=== PATIENT | male | born 1965 | race Caucasian/White ===

== ENCOUNTER → 2019-12-27 11:06 | Outpatient (CLI) | payer BC, SELFPAY | PROVIDERS: PCP Family Medicine; Referring Provider Family Medicine; Visit Provider Family Medicine | DX: R50.9 Fever, unspecified (principal) | CPT/HCPCS: 87635; G2023; U0003 ==

== ENCOUNTER → 2025-01-03 | Outpatient (CLI) | payer OTHER, SELFPAY ==
[2025-01-03 17:37] LABS: Absolute Lymphocyte Count 2.16 X10^3/uL (0.83-4.51); Absolute Neutrophil Count 1.9 X10^3/uL (2.0-7.7); Basophil# 0.02 X10^3/uL; Basophil% 0.5 % (0-1); Eosinophil# 0.03 X10^3/uL; Eosinophils% 0.7 % (0-5); Hematocrit 39.2 % (40-54); Hemoglobin 13.8 g/dL (13.0-16.5); Lymphocyte # 2.16 X10^3/ul (0.83-4.51); Lymphocyte % 48.6 % (19-41); Mean Corp Hgb Conc 35.2 g/dL (32-36); Mean Corpuscular Hgb 31.8 pg (27.0-32.0); Mean Corpuscular Volume 90.3 fL (80-94); Mean Platelet Vol. 10.6 fl (6.2-12.0); Monocyte# 0.38 X10^3/uL; Monocyte% 8.6 % (0-10); NRBC Flagged by Analyzer 0 % (0-5); Neutrophil # 1.85 X10^3/uL (2.7-7.7); Neutrophil % 41.6 % (47-70); Platelet Count 192 K/mm3 (150-450); RBC Distribution Width CV 11.9 % (11.6-14.6); RBC Distribution Width SD 39.1 fl (35.1-43.9); Red Blood Count 4.34 M/mm3 (4.6-6.2); White Blood Count 4.4 K/mm3 (4.4-11.0)
[2025-01-03 18:45] LABS: Hepatitis C Antibody Nonreactive (Nonreactive); Vitamin D,25 Hydroxy 33.5 ng/mL (30-100)
[2025-01-03 18:48] LABS: ALB/GLOB Ratio 1.8 RATIO (0.9-2.4); AST(SGOT) 31 U/L (<=37); Alanine Aminotransfer ALT/SGPT 28 U/L (<=46); Albumin, Serum 4.4 g/dL (3.5-5.0); Alkaline Phosphatase 68 U/L (40-129); Anion Gap 11 (5-15); BUN 15 mg/dL (4-19); Calcium,Total 9.5 mg/dL (7.6-11.0); Carbon Dioxide 26.3 mmol/L (21.0-32.0); Chloride 103 mmol/L (98-108); Creatinine, Serum 0.91 mg/dL (0.70-1.20); EST Glomerular Filtration Rate 97 (>60); Globulin 2.4 g/dL (2.2-4.2); Glucose 92 mg/dL (70-99); Potassium 3.9 mmol/L (3.3-5.1); Protein, Total 6.8 g/dL (5.9-8.4); Sodium Level 140 mmol/L (133-145); Total Bilirubin 0.65 mg/dL (0.00-1.30)
== END | disposition home or self-care (01) ==
PROVIDERS: PCP Family Medicine; Referring Provider Family Medicine Geriatric Medicine; Visit Provider Family Medicine Geriatric Medicine
DX: Z13.89 Encounter for screening for other disorder (principal); E78.5 Hyperlipidemia, unspecified; E55.9 Vitamin D deficiency, unspecified
CPT/HCPCS: 36415; 80053; 82306; 84443; 85025; 86803

== ENCOUNTER → 2025-03-30 | Outpatient (CLI) | payer OTHER, SELFPAY ==
--- NOTE | 2025-03-30 08:03 | EKG12_ITS ---
Test Reason : PREOP Blood Pressure : */* mmHG Vent. Rate : 47 BPM Atrial Rate : 47 BPM P-R Int : 198 ms QRS Dur : 96 ms QT Int : 428 ms P-R-T Axes : -11 -10 -8 degrees QTcB Int : 378 ms Marked sinus bradycardia Abnormal ECG No previous ECGs available Confirmed by ELVIA URBINA, ELMO ([id number]), clinical editor FAISAL HALL ([id number]) on 04/02/2025 8:40:26 AM Referred By: Zach Hoff Confirmed By: ELMO GAN MD
--- OUTSIDE RECORDS SUMMARY | 2025-03-30 08:11 | XMS RPT_ITS | CCD ---
Author Organization [facility] Care Team Providers Care Transit Planner Name Role Phone Dariel Nicholson Unavailable Unavailable Panzner, Pilo Megan Unavailable Unavailable Kromalic, Melquiades Unavailable Unavailable Kromalic, Melquiades Unavailable Unavailable Robby Lazaro Unavailable Unavailable Dariel Nicholson Unavailable Unavailable Alexander Reyes MD Unavailable Kromalic, Melquiades Unavailable Unavailable Kromalic, Melquiades C Unavailable Unavailable Iveth Pilo C Unavailable Unavailable Dariel Nicholson Unavailable Unavailable MiteshomalicMelquiades Primary Care Provider Kromalic DO, Melquiades Unavailable Unavailable Kromalic, Melquiades C Unavailable Unavailable Iveth Pilo C Unavailable Unavailable Robby Lazaro Unavailable Unavailable Dariel Nicholson Unavailable Unavailable Dariel Nicholson Unavailable Unavailable Kromalic DO, Melquiades Unavailable Unavailable Panzner, Pilo C Unavailable Unavailable Kromalic DO, Melquiades Unavailable Unavailable Kromalic, Melquiades C Unavailable Unavailable Unavailable Krcarline, Melquiades Primary Care Unavailable Alexander Gamboa Attending Unavailable Unavailable Primary Care Provider Unavailjb e Kromalic DO, Melquiades C Primary Care Provider KELLY OBRIEN Referring Unavailable KROMALIC, MELQUIADES C Primary Care Unavailable Kromalic DO, Melquiades C Primary Care Provider ALEXANDER GAMBOA Attending Unavailable KROMALIC, MELQUIADES C Primary Care Unavailable HUNTER PEOPLES Attending Unavailable KROMALIC, MELQUIADES C Primary Care Unavailable KROMALIC, MELQUIADES C Attending Unavailable KROMALIC, MELQUIADES C Primary Care Unavailable KROMALIC, MELQUIADES C Referring Unavailable Maynor Malone MD Unavailable Dr. Melquiades Jolley MD Primary Care Provider Steve URBINA, Dr. Antione Schultz Attending Provider Steve URBINA, Dr. Antione Schultz Referring Provider [phone] HUNTER BAIG Attending Unavailable KROMALIC, MELQUIADES Guzman Primary Care Unavailable KROMALIC, MELQUIADES Guzman Primary Care Unavailable KIRA, RAJU Attending Unavailable KROMALIC, MELQUIADES Guzman Primary Care Unavailable KIRA, DINESHU Attending Unavailable KROMALIC, MELQUIADES Guzman Primary Care Unavailable HUNTER BAIG Attending Unavailable KROMALIC, MELQUIADES Guzman Primary Care Unavailable KIRA, RAJU Admitting Unavailable KIRA, RAJU Attending Unavailable KROMALIC, MELQUIADES C Primary Care Unavailable KIRA, RAJU Referring Unavailable KROMALIC, MELQUIADES C Primary Care Unavailable KROMALIC, MELQUIADES C Referring Unavailable KROMALIC, MELQUIADES C Primary Care Unavailable KIRA, RAJU Referring Unavailable KROMALIC, MELQUIADES Guzman Primary Care Unavailable KROMALIC, MELQUIADES Guzman Primary Care Unavailable Kromaldesire, Melquiaeds Primary Care Unavailable Antione Wilson Chi Referring Unavailable Antione Wilson Chi Attending Unavailable Melquiades Jolley Primary Care Unavailable Dariel Hoff Attending Unavailabl e Medications Current Medications Medication Drug Class(es) Dates Sig (Normalized) Sig (Original) apixaban 5 mg oral tablet (8 sources) Factor Xa Inhibitor Start: 12-20-2024 take 1 tablet by mouth twice daily apixaban (Eliquis) 5 mg tablet Indications: Atrial fibrillation, unspecified type (Multi) Take 1 tablet (5 mg) by mouth 2 times a day. 60 tablet 11 12/20/2024 Active Start: 11-16-2024 take 1 tablet by debra th twice daily apixaban (Eliquis) 5 mg tablet Indications: Atrial fibrillation, unspecified type (Multi) Take 1 tablet (5 mg) by mouth 2 times a day. 60 tablet 11/16/2024 Active ascorbic acid 500 mg oral tablet (8 sources) Vitamin C take 1 tablet by mouth once daily ascorbic acid (Vitamin C) 500 mg tablet Take 1 tablet (500 mg) by mouth once daily. Active nirmatrelvir-ritonav ir (Paxlovid) 300 mg (150 mg x 2)-100 mg tablet therapy pack (1 source) Start: 07-06-20 End: 07-11-20 23 take 3 tablets by mouth twice daily nirmatrelvir-ritonavi r (Paxlovid) 300 mg (150 mg x 2)-100 mg tablet therapy pack Indications: COVID-19 Take 3 tablets by mouth 2 times a day for 5 days. 30 tablet 0 07/06/2023 07/11/2023 Active oseltamivir 75 mg oral capsule (1 source) Neuraminidase Inhibitor Start: 10-15-19 End: 10-20-19 take 1 capsule by mouth twice daily oseltamivir (Tamiflu) 75 mg capsule Indications: Body aches , Chills , Fatigue, unspecified type , Influenza A Take 1 capsule (75 mg) by mouth 2 times a day for 5 days. 10 capsule 10/14/2024 10/19/2024 Active rosuvastatin calcium 5 mg oral tablet (8 sources) HMG-CoA Reductase Inhibitor Start: 12-21-19 End: 12-21-19 take 1 tablet by mouth once daily rosuvastatin (Crestor) 5 mg tablet Indications: Hyperlipidemia, unspecified hyperlipidemia type Take 1 tablet (5 mg) by mouth once daily. 30 tablet 11 12/20/2024 12/20/2025 Active Start: 11-16-2024 End: 12-16-2024 take 1 tablet by mouth once daily rosuvastatin (Crestor) 5 mg tablet Indications: Hyperlipidemia, unspecified hyperlipidemia type Take 1 tablet (5 mg) by mouth once daily. 30 tablet 11/16/2024 12/16/2024 Active Completed/Discontinued Medications Medication Drug Class(es) Dates Sig (Normalized) Sig (Original) [id number] 60 actuat albuterol 0.09 mg/actuat metered dose inhaler (2 sources) beta2-Adrenergic Agonist Start: 12-30-2019 take 1-2 puff(s) by inhalation every four to six hours as needed Albuterol Sulfate HFA 108 (90 Base) MCG/ACT Inhalation Aerosol Solution INHALE 1 TO 2 PUFFS EVERY 4 TO 6 HOURS NEEDED. Quantity: 1 Refills: 0 Melquiades Jolley DO Start : 30-Dec-2019 Active 8.5 GM Inhaler amoxicillin 875 mg oral tablet (2 sources) Penicillin-class Antibacterial Start: 06-10-2019 take 1 tablet by mouth once daily Amoxicillin 875 MG Oral Tablet TAKE 1 TABLET EVERY 12 HOURS DAILY. Quantity: 14 Refills: 0 Dariel Nicholson DO Start : 10-Jun-2019 Active Start: 11-30-2018 End: 12-09-2018 take 1 tablet by mouth once daily Amoxicillin 875 MG Oral Tablet TAKE 1 TABLET EVERY 12 HOURS DAILY. Quantity: 16 Refills: 0 Dariel Nicholson DO Start : 30-Nov-2018 End : 08-Dec-2018 Active benzonatate 200 mg oral capsule (2 sources) Non-narcotic Antitussive Start: 12-28-2019 take 1 capsule by mouth three times daily as needed Benzonatate 200 MG Oral Capsule TAKE 1 CAPSULE 3 TIMES DAILY NEEDED. Quantity: 21 Refills: 0 Miteshcarline KRAFT Melquiades Start : 28-Dec-2019 Active doxycycline hyclate 100 mg oral capsule (1 source) Tetracycline-class Drug Start: 01-17-2019 take 1 capsule by mouth once daily Doxycycline Hyclate 100 MG Oral Capsule TAKE 1 CAPSULE EVERY 12 HOURS DAILY. Quantity: 14 Refills: 0 Dariel Nicholson DO Start : 17-Jan-2019 Active ergocalciferol, vitamin D2, (VITAMIN D2 ORAL) (7 sources) End: 01-18-2025 ergocalciferol, vitamin D2, (VITAMIN D2 ORAL) Take by mouth. 01/18/2025 Discontinued (Therapy completed) ergocalciferol, vitamin D2, (VITAMIN D2 ORAL) Take by mouth. Active iohexol (OMNIPaque) 350 mg iodine/mL solution 75 mL (1 source) Start: 08-02-2024 End: 08-02-2024 75 mL, intravenous, Once in imaging, Starting on Wed08/02/24 at 1217, For 1 dose, Outpatient - Future naproxen 500 mg oral tablet (5 sources) Nonsteroidal Anti-inflammatory Drug Start: 01-23-2019 take 1 tablet by mouth every twelve hours Naproxen 500 MG Oral Tablet TAKE 1 TABLET Every twelve hours PRN pain Quantity: 14 Refills: 0 Miteshfabianodesire DO Melquiades Start : 23-Jan-2019 Active No Reported Medications (2 sources) No Reported Medications Refills: 0 Active No Reported Medications (2 sources) No Reported Medications Refills: 0 DO Active No Reported Medi cations Refills: 0 Active Problems Active Problems Problem Classification Problem Date Documented Da te Episodic/Chronic Aortic; peripheral; and visceral artery aneurysms (9 sources) Aneurysm of ascending aorta; Translations: [Aneurysm of ascending aorta without rupture] Onset: 5 11-16-2024 Chronic Cancer of rectum and anus (20 sources) Malignant tumor of rectum; Translations: [Malignant neoplasm of rectum] Onset: 3 Chronic Cardiac dysrhythmias (20 sources) Atrial fibrillation; Translations: [Unspecified atrial fibrillation] Onset: 5 11-16-2024 Chronic Coronary atherosclerosis and other heart disease (13 sources) Coronary arteriosclerosis; Translations: [Atherosclerotic heart disease of [place] coronary artery without angina pectoris] Onset: 5 11-16-2024 Chronic Disorders of lipid metabolism (20 sources) Hyperlipidemia; Translations: [Hyperlipidemia, unspecified] Onset: 5 11-16-2024 Chronic Diverticulosis and diverticulitis (1 source) Diverticulosis of large intestine without perforation or abscess without bleeding; Translations: [Dvrtclos of lg int w/o perforation or abscess w/o bleeding] Onset: 3 Chronic Fever of unknown origin (7 sources) Fever; Translations: [Fever, unspecified] Episodic Immunizations and screening for infectious disease (6 sources) Vaccination needed; Translations: [Need for prophylactic vaccination and inoculation against unspecified single disease] Episodic Influenza (3 sources) Influenza due to Influenza A virus; Translations: [Influenza due to other identified influenza virus with other respiratory manifestations] Onset: 5 10-14-2024 Episodic Malaise and fatigue (3 sources) Fatigue; Translations: [Other fatigue] Onset: 5 10-14-2024 Episodic Nutritional deficiencies (2 sources) Vitamin D deficiency; Translations: [Vitamin D deficiency, unspecified] Onset: 5 01-15-2025 Chronic Other aftercare (1 source) Encounter for removal of sutures; Translations: [Visit for suture removal] Episodic Other aftercare (19 sources) Surgical follow-up; Translations: [Encounter for removal of sutures] Episodic Other connective tissue disease (20 sources) Metatarsalgia; Translations: [Enthesopathy of ankle and tarsus, unspecified] Episodic Other connective tissue disease (20 sources) Foot pain; Translations: [Pain in limb] Episodic Other connective tissue disease (19 sources) Pain in calf; Translations: [Pain in limb] Episodic Other gastrointestinal disorders (1 source) Other ascites; Translations: [Other ascites] Onset: 3 Episodic Other liver diseases (1 source) Fatty (change of) liver, not elsewhere classified; Translations: [Fatty (change of) liver, not elsewhere classified] Onset: 3 Chronic Other liver diseases (1 source) Liver disease, unspecified; Translations: [Liver disease, unspecified] Onset: 3 Chronic Other non-traumatic joint disorders (1 source) Toe joint unstable; Translations: [Other instability, right foot] Onset: 0 08-25-2019 Episodic Other nutritional; endocrine; and metabolic disorders (2 sources) Obesity; Translations: [Class 1 obesity with body mass index (BMI) of 33.0 to 33.9 in adult] Onset: 5 01-18-2025 Chronic Other screening for suspected conditions (not mental disorders or infectious disease) (20 sources) Electrocardiogram abnormal; Translations: [Nonspecific abnormal electrocardiogram [ECG] [EKG]] Onset: 3 Resolved: 5 07-06-2023 Episodic Other upper respiratory disease (20 sources) Hypertrophy of nasal turbinates; Translations: [Hypertrophy of nasal turbinates] Episodic Other upper respiratory infections (20 sources) Chronic pansinusitis; Translations: [Recurrent sinusitis] Onset: 3 Resolved: 3 07-06-2023 Chronic Residual codes; unclassified (1 source) Generalized aches and pains; Translations: [Pain, unspecified] 10-14-2024 Episodic Residual codes; unclassified (1 source) Chill; Translations: [Chills (without fever)] 10-14-2024 Episodic Residual codes; unclassified (2 sources) Pain, unspecified; Translations: [Pain, unspecified] Onset: 5 Episodic Residual codes; unclassified (2 sources) Chills (without fever); Translations: [Chills (without fever)] Onset: 5 Episodic Unclassified (1 source) Aneurysm of the ascending aorta, without rupture; Translations: [Aneurysm of the ascending aorta, without rupture] Onset: 5 Varicose veins of lower extremity (14 sources) Varicose veins of lower extremity; Translations: [Venous varices] Onset: 08-25-2019 Episodic Past or Other Problems Problem Classification Problem Date Documented Da te Episodic/Chronic Other connective tissue disease (19 sources) Other specified soft tissue disorders; Translations: [Swelling of right lower limb] Onset: 07-06-2023 Resolved: 07-06-2023 07-06-2023 Episodic Other connective tissue disease (14 sources) Metatarsalgia of right foot; Translations: [Metatarsalgia, right foot] Onset: 07-06-2023 Resolved: 07-06-2023 07-06-2023 Episodic Other connective tissue disease (14 sources) Pain of right calf; Translations: [Pain in right lower leg] Onset: 07-06-2023 Resolved: 07-06-2023 07-06-2023 Episodic Other connective tissue disease (12 sources) Swelling of lower limb; Translations: [Other specified soft tissue disorders] Onset: 07-06-2023 11-16-2024 Episodic Other connective tissue disease (13 sources) Swelling of right lower limb; Translations: [Right leg swelling] Other gastrointestinal disorders (2 sources) History of polyp of colon; Translations: [Personal history of other diseases of the digestive system] 08-10-2023 Episodic Other gastrointestinal disorders (2 sources) Personal history of other diseases of the digestive system; Translations: [Personal history of other diseases of the digestive system] Onset: 02-01-2024 Episodic Other injuries and conditions due to external causes (20 sources) Tick bite; Translations: [Insect bite, nonvenomous, of other, multiple, and unspecified sites, without mention of infection] Onset: 07-06-2023 Resolved: 07-06-2023 07-06-2023 Episodic Other lower respiratory disease (20 sources) Cough; Translations: [Cough] Onset: 07-06-2023 Resolved: 07-06-2023 07-06-2023 Episodic Other lower respiratory disease (10 sources) Snoring; Translations: [Snoring] Onset: 11-16-2024 11-16-2024 Episodic Other lower respiratory disease (1 source) Snoring; Translations: [Snoring] Onset: 11-16-2024 Episodic Other nutritional; endocrine; and metabolic disorders (20 sources) H/O: raised blood lipids; Translations: [Personal history of other endocrine, metabolic, and immunity disorders] Onset: 07-06-2023 Resolved: 07-06-2023 07-06-2023 Episodic Other skin disorders (20 sources) Epidermoid cyst; Translations: [Sebaceous cyst] Onset: 07-06-2023 Resolved: 11-16-2024 07-06-2023 Episodic Other upper respiratory disease (20 sources) Deviated nasal septum; Translations: [Deviated nasal septum] Onset: 07-06-2023 Resolved: 11-16-2024 07-06-2023 Episodic Other upper respiratory infections (20 sources) Acute sinusitis; Translations: [Acute upper respiratory infection] Onset: 07-06-2023 Resolved: 07-06-2023 07-06-2023 Episodic Otitis media and related conditions (20 sources) Dysfunction of eustachian tube; Translations: [Otitis media] Onset: 07-06-2023 Resolved: 11-16-2024 07-06-2023 Episodic Phlebitis; thrombophlebitis and thromboembolism (20 sources) Thrombosis of superficial vein of lower limb; Translations: [Phlebitis of superficial veins of lower extremity] Onset: 07-06-2023 Resolved: 07-06-2023 07-06-2023 Episodic Residual codes; unclassified (2 sources) Localized edema; Translations: [Localized edema] Onset: 11-30-2024 11-30-2024 Episodic Residual codes; unclassified (1 source) Localized edema; Translations: [Localized edema] Onset: 11-30-2024 Episodic Residual codes; unclassified (7 sources) Requires vaccination; Translations: [Need for vaccination] Skin and subcutaneous tissue infections (20 sources) Cellulitis of abdominal wall ; Translations: [Cellulitis and abscess of trunk] Onset: 07-06-2023 Resolved: 07-06-2023 07-06-2023 Episodic Unclassified (1 source) Problem Unclassified (8 sources) Patient encounter status; Translations: [Screening for colon cancer] 11-16-2024 Unclassified (14 sources) Onset: 07-06-2023 Resolved: 11-16-2024 07-06-2023 Unclassified (1 source) Aneurysm of the ascending aorta, without rupture; Translations: [Aneurysm of the ascending aorta, without rupture] Onset: 11-16-2024 Viral infection (20 sources) Viral disease; Translations: [Unspecified viral infection] Onset: 07-06-2023 Resolved: 11-16-2024 07-06-2023 Episodic NEGATED: Highlighted row has not occurred!Residual codes; unclassified (20 sources) Disease Episodic Results Test Name Value Interpretation Reference Range Facility CEAon 03-01-2025 CEA <2.0 Normal See Note: [facility] Comment on above: Result Comment: Refe rence Range: Non-Smoker: <2.5 Smoker: <5.0 This test was performed using the Siemens chemiluminescent method. Values obtained from different assay methods cannot be used interchangeably. CEA levels, regardless of value, should not be interpreted as absolute evidence of the presence or absence of disease. Performed By: #### [id number] #### [facility] [address], [address] [place] [address] Senior International Tax Manager: Mg Blake MD ECG 12-LEADon 01-08-2025 ECG 12-LEAD Ventricular Rate 47 Atrial Rate 47 P-R Interval 198 QRS Duration 88 Q-T Interval 410 QTC Calculation(Bazett) 362 P [place] 3 R [place] -2 T [place] 0 QRS Count 8 Q Onset 220 P Onset 121 P Offset 183 T Offset 425 QTC Fredericia 377 Diagnosis Sinus bradycardia Otherwise normal ECG When compared with ECG of 02-JAN-2025 12:07, (unconfirmed) No significant change was found Confirmed by Maynor Malone ([id number]) on 01/27/2025 9:38:04 PM Normal [facility] Absolute lymphocyte countOrd ered By: Antione Wilson on 01-03-2025 Lymphocytes Auto (Unsp spec) [#/Vol] 2.16 10*3/uL 0.83-4.51 [facility] Absolute neutrophil countOrd ered By: Antione Wilson on 01-03-2025 Neutrophils (Bld) [#/Vol] 1.9 10*3/uL Low 2.0-7.7 [facility] Anion gap in Serum or Plasma Ordered By: Antione Wilson on 01-03-2025 Anion gap [Moles/Vol] 11 mmol/L 5-15 [facility] Automated lymphocyte count a s percentage of total leukocytesOrdered By: Antione Wilson on 01-03-2025 Lymphocytes/100 WBC Auto (Unsp spec) 48.6 % High 19-41 [facility] BUN/creatinine ratioOrdered By: Antione Wilson on 01-03-2025 Urea nitrogen/Creatinine [Mass ratio] 16.0 mg/mg 10-20 [facility] Basophil percentageOrdered B y: Antione Wilson on 01-03-2025 Basophils/100 WBC (Bld) 0.5 % 0-1 [facility] Bilirubin, totalOrdered By: Antione Wilson on 01-03-2025 Bilirubin [Mass/Vol] 0.65 mg/dL 0.00-1.30 [facility] CBC W/Diff, Automatedon 12-24 Absolute Lymph 2.16 X10 3/uL Normal 0.83-4.51 [facility] Comment on above: Performed By: #### L 500.4050, L3890.6301, L506.1001, L501.9520, L100.0100 #### [facility] [address] [place], [address] Absolute Neut 1.9 X10 3/uL Low 2.0-7.7 [facility] Comment on above: Performed By: #### L 500.4050, [id number], L506.1001, L501.9520, L100.0100 #### [facility] [address] [place], [address] Basophils/100 WBC (Bld) 0.5 % Normal 0-1 [facility] Comment on above: Performed By: #### L 500.4050, [id number], L506.1001, L501.9520, L100.0100 #### [facility] [address] [place], [address] Eosinophils/100 WBC (Bld) 0.7 % Normal 0-5 [facility] Comment on above: Performed By: #### L 500.4050, [id number], L506.1001, L501.9520, L100.0100 #### [facility] [address] [place], [address] Erythrocyte distribution width (RBC) [Ratio] 11.9 % Normal 11.6-14.6 [facility] Comment on above: Performed By: #### L 500.4050, [id number], L506.1001, L501.9520, L100.0100 #### [facility] [address] [place], [address] Hematocrit (Bld) [Volume fraction] 39.2 % Low 40-54 [facility] Comment on above: Performed By: #### L 500.4050, [id number], L506.1001, L501.9520, L100.0100 #### [facility] [address] [place], [address] Hemoglobin (Bld) [Mass/Vol] 13.8 g/dL Normal 13.0-16.5 [facility] Comment on above: Performed By: #### L 500.4050, [id number], L506.1001, L501.9520, L100.0100 #### [facility] [address] [place], [address] IG% 0.000 Normal 0.0-0.9 [facility] Comment on above: Result Comment: IG% - Immature Granulocytes (promyelocytes, myelocytes and metamyelocytes) > 1% indicates that a LEFT SHIFT is Present. Performed By: #### L 500.4050, [id number], L506.1001, L501.9520, L100.0100 #### [facility] [address] [place], [address] Lymphocytes/100 WBC (Bld) 48.6 % High 19-41 [facility] Comment on above: Performed By: #### L 500.4050, [id number], L506.1001, L501.9520, L100.0100 #### [facility] [address] [place], [address] MCH (RBC) [Entitic mass] 31.8 pg Normal 27.0-32.0 [facility] Comment on above: Performed By: #### L 500.4050, [id number], L506.1001, L501.9520, L100.0100 #### [facility] [address] [place], [address] MCHC (RBC) [Mass/Vol] 35.2 g/dL Normal 32-36 [facility] Comment on above: Performed By: #### L 500.4050, [id number], L506.1001, L501.9520, L100.0100 #### [facility] [address] [place], [address] MCV (RBC) [Entitic vol] 90.3 fL Normal 80-94 [facility] Comment on above: Performed By: #### L 500.4050, [id number], L506.1001, L501.9520, L100.0100 #### [facility] [address] [place], [address] Monocytes/100 WBC (Bld) 8.6 % Normal 0-10 [facility] Comment on above: Performed By: #### L 500.4050, [id number], L506.1001, L501.9520, L100.0100 #### [facility] [address] [place], [address] Neutrophils/100 WBC (Bld) 41.6 % Low 47-70 [facility] Comment on above: Performed By: #### L 500.4050, [id number], L506.1001, L501.9520, L100.0100 #### [facility] [address] [place], [address] Nucleated RBC (Bld) [#/Vol] 0 10*3/uL Normal 0-5 [facility] Comment on above: Performed By: #### L 500.4050, [id number], L506.1001, L501.9520, L100.0100 #### [facility] [address] [place], [address] Platelet mean volume (Bld) [Entitic vol] 10.6 fL Normal 6.2-12.0 [facility] Comment on above: Performed By: #### L 500.4050, [id number], L506.1001, L501.9520, L100.0100 #### [facility] [address] [place], [address] Platelets (Bld) [#/Vol] 192 10*3/uL Normal 150-450 [facility] Comment on above: Performed By: #### L 500.4050, [id number], L506.1001, L501.9520, L100.0100 #### [facility] [address] [place], [address] RBC (Bld) [#/Vol] 4.34 10*6/uL Low 4.6-6.2 [facility] Comment on above: Performed By: #### L 500.4050, [id number], L506.1001, L501.9520, L100.0100 #### [facility] [address] [place], [address] RDW SD 39.1 fl Normal 35.1-43.9 [facility] Comment on above: Performed By: #### L 500.4050, [id number], L506.1001, L501.9520, L100.0100 #### [facility] [address] [place], [address] WBC (Bld) [#/Vol] 4.4 10*3/uL Normal 4.4-11.0 [facility] Comment on above: Performed By: #### L 500.4050, [id number], L506.1001, L501.9520, L100.0100 #### [facility] [address] [place], [address] Carbon dioxide, total [Moles /volume] in Central venous bloodOrdered By: Antione Wilson on 01-03-2025 CO2 [Moles/Vol] 26.3 mmol/L 21.0-32.0 [facility] Chloride assayOrdered By: Felipe Wilson on 01-03-2025 Chloride [Moles/Vol] 103 mmol/L 98-108 [facility] Comprehensive Metabolic Prof ilon 01-03-2025 Albumin [Mass/Vol] 4.4 g/dL Normal 3.5-5.0 [facility] Comment on above: Performed By: #### L 500.4050, L3890.6301, L506.1001, L501.9520, L100.0100 #### [facility] [address] [place], [address] Albumin/Globulin [Mass ratio] 1.8 {ratio} Normal 0.9-2.4 [facility] Comment on above: Performed By: #### L 500.4050, L3890.6301, L506.1001, L501.9520, L100.0100 #### [facility] [address] [place], [address] ALK PHOS 68 U/L Normal 40-129 [facility] Comment on above: Performed By: #### L 500.4050, L3890.6301, L506.1001, L501.9520, L100.0100 #### [facility] [address] [place], [address] ALT [Catalytic activity/Vol] 28 U/L Normal <=46 [facility] Comment on above: Performed By: #### L 500.4050, L3890.6301, L506.1001, L501.9520, L100.0100 #### [facility] [address] [place], [address] AST [Catalytic activity/Vol] 31 U/L Normal <=37 [facility] Comment on above: Result Comment: Hemo lysis present, Results??could be affected. ?? Performed By: #### L 500.4050, L3890.6301, L506.1001, L501.9520, L100.0100 #### [facility] [address] [place], [address] Bilirubin [Mass/Vol] 0.65 mg/dL Normal 0.00-1.30 [facility] Comment on above: Performed By: #### L 500.4050, L3890.6301, L506.1001, L501.9520, L100.0100 #### [facility] [address] [place], [address] BUN/CRE 16.0 RATIO Normal 10-20 [facility] Comment on above: Performed By: #### L 500.4050, L3890.6301, L506.1001, L501.9520, L100.0100 #### [facility] [address] [place], [address] Calcium [Mass/Vol] 9.5 mg/dL Normal 7.6-11.0 [facility] Comment on above: Performed By: #### L 500.4050, L3890.6301, L506.1001, L501.9520, L100.0100 #### [facility] [address] [place], [address] Chloride [Moles/Vol] 103 mmol/L Normal 98-108 [facility] Comment on above: Performed By: #### L 500.4050, L3890.6301, L506.1001, L501.9520, L100.0100 #### [facility] [address] [place], [address] CO2 [Moles/Vol] 26.3 mmol/L Normal 21.0-32.0 [facility] Comment on above: Performed By: #### L 500.4050, L3890.6301, L506.1001, L501.9520, L100.0100 #### [facility] [address] [place], [address] Creatinine [Mass/Vol] 0.91 mg/dL Normal 0.70-1.20 [facility] Comment on above: Performed By: #### L 500.4050, L3890.6301, L506.1001, L501.9520, L100.0100 #### [facility] [address] [place], [address] GAP 11 Normal 5-15 [facility] Comment on above: Performed By: #### L 500.4050, L3890.6301, L506.1001, L501.9520, L100.0100 #### [facility] [address] [place], [address] GFR/1.73 sq M.predicted among non-blacks MDRD (S/P/Bld) [Vol rate/Area] 97 mL/min/{1.73_m2} Normal >60 [facility] Comment on above: Result Comment: mL/m in/1.73m2 CKD-EPI Creatinine Equation (2020) Performed By: #### L 500.4050, L3890.6301, L506.1001, L501.9520, L100.0100 #### [facility] [address] [place], [address] Globulin (S) [Mass/Vol] 2.4 g/dL Normal 2.2-4.2 [facility] Comment on above: Performed By: #### L 500.4050, L3890.6301, L506.1001, L501.9520, L100.0100 #### [facility] [address] [place], [address] Glucose [Mass/Vol] 92 mg/dL Normal 70-99 [facility] Comment on above: Performed By: #### L 500.4050, L3890.6301, L506.1001, L501.9520, L100.0100 #### [facility] [address] [place], [address] Potassium [Moles/Vol] 3.9 mmol/L Normal 3.3-5.1 [facility] Comment on above: Result Comment: Hemo lysis present, Results??could be affected. ?? Performed By: #### L 500.4050, L3890.6301, L506.1001, L501.9520, L100.0100 #### [facility] [address] [place], [address] Sodium [Moles/Vol] 140 mmol/L Normal 133-145 [facility] Comment on above: Performed By: #### L 500.4050, L3890.6301, L506.1001, L501.9520, L100.0100 #### [facility] [address] [place], [address] T PROT 6.8 g/dL Normal 5.9-8.4 [facility] Comment on above: Performed By: #### L 500.4050, L3890.6301, L506.1001, L501.9520, L100.0100 #### [facility] [address] [place], [address] Urea nitrogen [Mass/Vol] 15 mg/dL Normal 4-19 [facility] Comment on above: Performed By: #### L 500.4050, L3890.6301, L506.1001, L501.9520, L100.0100 #### [facility] [place], [address] Eosinophil percentageOrdered By: Antione Wilson on 01-03-2025 Eosinophils/100 WBC (Bld) 0.7 % 0-5 [facility] Erythrocyte distribution wid th ratioOrdered By: [facility] on 01-03-2025 Erythrocyte distribution width (RBC) [Ratio] 11.9 % 11.6-14.6 [facility] Erythrocyte distribution wid th standard deviationOrdered By: [facility] on 01-03-2025 Erythrocyte distribution width (RBC) [Ratio] 39.1 fl 35.1-43.9 [facility] Glomerular filtration rate ( GFR) estimation/1.73 sq m using serum, plasma, or whole bOrdered By: [facility] on 01-[facility]25 GFR/1.73 sq M.predicted among non-blacks MDRD (S/P/Bld) [Vol rate/Area] 97 mL/min/{1.73_m2} >60 [facility] Comment on above: mL/min/1.73m2 CKD-EP I Creatinine Equation (2020) Hematocrit Auto (Bld) [Volum e fraction]Ordered By: [facility] on 01-03-2025 Hematocrit (Bld) [Volume fraction] 39.2 % Low 40-54 [facility] Hemoglobin measurementOrdere d By: [facility] on 01-03-2025 Hemoglobin (Bld) [Mass/Vol] 13.8 g/dL 13.0-16.5 [facility] Hepatitis C Antibodyon 01-03 Hepatitis C Ab Non-Reactive Normal Nonreactive [facility] Comment on above: Result Comment: Reac tive: Presumptive evidence of antibodies to HCV. Follow CDC recommendations for supplemental testing. Non-Reactive: Antibodies to HCV were not detected; does not exclude the possibility of exposure to HCV Reactive Results are presumptive evidence of antibodies to HCV. Follow CDC recommendations for supplemental testing. Order confirmation testing: HCV Quant by PCR testing - HCVPCR #[id number] Non Reactive: < 0.8 Equivocal: >/= 0.8 to < 1.0 Reactive: >/= 1.0 The CDC requires that a reactive/equivocal HCV antibody result be sent out for confirmation. HCV Quant by PCR testing. Performed By: #### L 500.4050, L3890.6301, L506.1001, L501.9520, L100.0100 #### [facility] [address] [place], [address] Immature granulocytes/100 WB C Auto (Bld)Ordered By: Antione Wilson on 01-03-2025 Immature granulocytes/100 WBC (Bld) 0.000 % 0.0-0.9 [facility] Comment on above: IG% - Immature Granu locytes (promyelocytes, myelocytes and metamyelocytes) > 1% indicates that a LEFT SHIFT is Present. Laboratory - Chemistry and C hemistry - challengeOrdered By: Antione Wilson on 01-03-2025 AST [Catalytic activity/Vol] 31 U/L <38 [facility] Comment on above: Hemolysis present, R esults could be affected. MCV (mean corpuscular volume ) determinationOrdered By: Antione Wilson on 01-03-2025 MCV (RBC) [Entitic vol] 90.3 fL 80-94 [facility] Mean corpuscular hemoglobin (MCH) determinationOrdered By: Antione Wilson 01-03-2025 MCH (RBC) [Entitic mass] 31.8 pg 27.0-32.0 [facility] Mean corpuscular hemoglobin concentration (MCHC) determinationOrdered By: Antione Wilson 01-03-2025 MCHC (RBC) [Mass/Vol] 35.2 g/dL 32-36 [facility] Mean platelet volume determi nationOrdered By: Antione Wilson on 01-03-2025 Platelet mean volume (Bld) [Entitic vol] 10.6 fL 6.2-12.0 [facility] Monocyte percentageOrdered B y: Antione Wilson on 01-03-2025 Monocytes/100 WBC (Bld) 8.6 % 0-10 [facility] Neutrophil percentageOrdered By: Antione Wilson on 01-03-2025 Neutrophils/100 WBC (Bld) 41.6 % Low 47-70 [facility] Nucleated red blood cell per centageOrdered By: Antione Wilson on 01-03-2025 Nucleated RBC/100 WBC (Bld) [Ratio] 0 % 0-5 [facility] Platelet countOrdered By: Felipe Wilson on 01-03-2025 Platelets (Bld) [#/Vol] 192 10*3/uL 150-450 [facility] Potassium measurement (mass/ volume)Ordered By: Antione Wilson on 01-03-2025 Potassium (Unsp spec) [Mass/Vol] 3.9 mmol/L 3.3-5.1 [facility] Comment on above: Hemolysis present, R esults could be affected. RBC Auto (Bld) [#/Vol]Ordere d By: Antione Wilson on 01-03-2025 RBC (Bld) [#/Vol] 4.34 10*6/uL Low 4.6-6.2 [facility] Serum creatinine measurement (mass/volume)Ordered By: Antione Wilson on 01-03-2025 Creatinine [Mass/Vol] 0.91 mg/dL 0.70-1.20 [facility] Serum globulin measurementOr dered By: Antione Wilson 01-03-2025 Globulin (S) [Mass/Vol] 2.4 g/dL 2.2-4.2 [facility] Serum glucose measurement (m ass/volume)Ordered By: Antione Wilson 01-03-2025 Glucose [Mass/Vol] 92 mg/dL 70-99 [facility] Serum or plasma alanine vasquez otransferase (ALT) measurementOrdered By: Antione Wilson 01-03-2025 ALT [Catalytic activity/Vol] 28 U/L <47 [facility] Serum or plasma albumin eduardo urement (mass/volume)Ordered By: Antione Wilson on 01-03-2025 Albumin [Mass/Vol] 4.4 g/dL 3.5-5.0 [facility] Serum or plasma albumin/glob ulin mass ratioOrdered By: Antione Wilson 01-03-2025 Albumin/Globulin [Mass ratio] 1.8 {ratio} 0.9-2.4 [facility] Serum or plasma alkaline matthieu sphatase measurementOrdered By: Antione Wilson 01-03-2025 ALP [Catalytic activity/Vol] 68 U/L 40-129 [facility] Serum or plasma calcium eduardo urement (mass/volume)Ordered By: Antione Wilson on 01-03-2025 Calcium [Mass/Vol] 9.5 mg/dL 7.6-11.0 [facility] Serum or plasma urea nitroge n measurement (mass/volume)Ordered By: Antione Wilson on 01-03-2025 Urea nitrogen [Mass/Vol] 15 mg/dL 4-19 [facility] Sodium levelOrdered By: Antione Wilson on 01-03-2025 Sodium [Moles/Vol] 140 mmol/L 133-145 [facility] TSH DL <= 0.005 mIU/L QnOrde red By: Antione Wilson on 01-03-2025 TSH Qn 1.750 uIU/mL 0.300-4.200 [facility] Thyroid Stim Hormone (TSH)on 01-03-2025 TSH 1.750 uIU/mL Normal 0.300-4.200 [facility] Comment on above: Performed By: #### L 500.4050, L3890.6301, L506.1001, L501.9520, L100.0100 #### [facility] [address] [place], [place], [id number] Total proteinOrdered By: Antione Wilson on 01-03-2025 Protein [Mass/Vol] 6.8 g/dL 5.9-8.4 [facility] Vitamin D,25 Hydroxyon 01-03 Vitamin D 25-OH 33.5 ng/mL Normal 30-100 [facility] Comment on above: Result Comment: Lucina min D Status Deficiency: <20 ng/mL (50nmol/L) Insufficiency: 20-30 ng/mL (50-75 nmol/L) Sufficiency: 30-100 ng/mL (75-250 nmol/L) Toxicity: >100 ng/mL (>250 nmol/L) Performed By: #### L 500.4050, L3890.6301, L506.1001, L501.9520, L100.0100 #### [facility] [address] [place], [address] White blood cell (WBC) count Ordered By: Antione Wilson on 01-03-2025 WBC (Bld) [#/Vol] 4.4 10*3/uL 4.4-11.0 [facility] Cardiac catheterization stud yon 01-02-2025 Recommendations: 1. Continue Eliquis 2. Follow-up with Dr. Malone 1 month SYNGO_SECTRA _XPER [facility] Work Phone: ECG 12-LEADon 01-02-2025 ECG 12-LEAD Ventricular Rate 61 Atrial Rate 61 P-R Interval 202 QRS Duration 100 Q-T Interval 408 QTC Calculation(Bazett) 410 P Washington -10 R Washington -15 T Washington -11 QRS Count 10 Q Onset 219 P Onset 118 P Offset 184 T Offset 423 QTC Fredericia 410 Diagnosis Normal sinus rhythm Nonspecific T wave abnormality Abnormal ECG When compared with ECG of 02-JAN-2025 10:45, (unconfirmed) Sinus rhythm has replaced Atrial fibrillation Confirmed by Maynor Malone ([id number]) on 01/27/2025 9:35:39 PM Normal [facility] TRANSTHORACIC ECHO (TTE) COM PLETEon 11-30-2024 TRANSTHORACIC ECHO (TTE) COMPLETE [facility] [address], [address], [place] [address] TRANSTHORACIC ECHOCARDIOGRAM REPORT Patient Name: KEVIN Acuña Physician: Calvin Malone MD Study Date: 11/30/2024 Ordering Provider: Calvin MALONE MRN/PID: [id number] Fellow: Nurse: Date of /Age: 2 1965 / 59 years Electrical Appliance Mechanic: Alisa Huber RDCS Gender assigned at M Additional Staff: : Height: 187.96 cm Admit Date: Weight: 124.74 kg Admission Status: Outpatient BSA / BMI: 2.49 m2 / 35.31 kg/m2 Blood Pressure: 128/73 mmHg Department Location: [facility] Study Type: TRANSTHORACIC ECHO (TTE) COMPLETE Diagnosis/ICD: Paroxysmal atrial fibrillation-I48.0 Indication: Afib, hyperlipidemia CPT Code: Echo Complete w Full Doppler-[id number] Study Detail: The following Echo studies were performed: 2D, M-Mode, Doppler and color flow. PHYSICIAN INTERPRETATION: Left Ventricle: Left ventricular ejection fraction is mildly decreased, by visual estimate at 50%. The patient is in atrial fibrillation which may influence the estimate of left ventricular function and transvalvular flows. There is mild concentric left ventricular hypertrophy. There are no regional left ventricular wall motion abnormalities. The left ventricular cavity size is normal. There is moderately increased septal and moderately increased posterior left ventricular wall thickness. Left ventricular diastolic filling is indeterminate. Left Atrium: The left atrial size is normal. Right Ventricle: The right ventricle is normal in size. There is normal right ventricular global systolic function. Right Atrium: The right atrium is normal in size. Aortic Valve: The aortic valve is trileaflet. There is no evidence of aortic valve regurgitation. Mitral Valve: The mitral valve is normal in structure. There is no evidence of mitral valve regurgitation. Tricuspid Valve: The tricuspid valve is structurally normal. No evidence of tricuspid regurgitation. Pulmonic Valve: The pulmonic valve is structurally normal. There is no indication of pulmonic valve regurgitation. Pericardium: There is no pericardial effusion noted. Aorta: The aortic root is normal. CONCLUSIONS: 1. Left ventricular ejection fraction is mildly decreased, by visual estimate at 50%. 2. There is moderately increased septal and moderately increased posterior left ventricular wall thickness. 3. There is normal right ventricular global systolic function. 4. The patient is in atrial fibrillation which may influence the estimate of left ventricular function and transvalvular flows. QUANTITATIVE DATA SUMMARY: 2D MEASUREMENTS: Normal Ranges: Ao Root d: 3.80 cm (2.0-3.7cm) IVSd: 1.40 cm (0.6-1.1cm) LVPWd: 1.40 cm (0.6-1.1cm) LVIDd: 5.20 cm (3.9-5.9cm) LVIDs: 3.70 cm LV Mass Index: 124 g/m2 LVEDV Index: 48 ml/m2 LV % FS 28.8 % LEFT ATRIUM: Normal Ranges: LA Vol A4C: 77.2 ml (22+/-6mL/m2) LA Vol A2C: 65.4 ml LA Vol BP: 74.8 ml LA Vol Index A4C: 31.0ml/m2 LA Vol Index A2C: 26.3 ml/m2 LA Vol Index BP: 30.0 ml/m2 LA Area A4C: 24.0 cm2 LA Area A2C: 21.0 cm2 LA Major [place] A4C: 6.3 cm LA Major [place] A2C: 5.7 cm RIGHT ATRIUM: Normal Ranges: RA Vol A4C: 6.2 ml RA Area A4C: 20.7 cm2 AORTA MEASUREMENTS: Normal Ranges: Asc Ao, d: 3.70 cm (2.1-3.4cm) LV SYSTOLIC FUNCTION: Normal Ranges: EF-A4C View: 55 % (>=55%) EF-A2C View: 51 % EF-Biplane: 52 % EF-Visual: 50 % LV EF Reported: 50 % LV DIASTOLIC FUNCTION: Normal Ranges: MV lateral e' 0.12 m/s AORTIC VALVE: Normal Ranges: LVOT Diameter: 2.40 cm (1.8-2.4cm) RIGHT VENTRICLE: TAPSE: 15.3 mm RV s' 0.10 m/s TRICUSPID VALVE/RVSP: Normal Ranges: Peak TR Velocity: 1.95 m/s RV Syst Pressure: 18 mmHg (< 30mmHg) IVC Diam: 1.90 cm [id number] Maynor Malone MD Electronically signed on 12/01/2024 at 8:43:34 AM Final [facility] VASC US LOWER EXTREMITY VENO US DUPLEX RIGHTon 11-30-2024 VASC US LOWER EXTREMITY VENOUS DUPLEX RIGHT Preliminary Cardiology Report [facility] [address], [address], [facility] [address] Preliminary Vascular Lab Report [facility] US LOWER EXTREMITY VENOUS INSUFFICIENCY RIGHT Patient Name: KEVIN Sepulveda Domenico Physician: [id number] ROSIBEL Latif MD Study Date: 11/30/2024 Ordering [id number] MELQUIADES JOLLEY Physician: MRN/PID: [id number] Technologist: Angie Niño RVT, [facility] Technologist 2: Date of /Age: 2 1965 Gender: M Admission Status: Outpatient Location [facility] Performed: Diagnosis/ICD: Localized (leg) edema-R60.0 Procedure/CPT: 70927 Venous reflux study VV Limited PRELIMINARY CONCLUSIONS: Right Lower Venous Insufficiency: Reflux is noted in the saphenofemoral junction, proximal thigh great saphenous, mid thigh great saphenous, knee level of great saphenous and mid calf great saphenous veins. Right Lower Venous: No evidence of acute deep vein thrombus visualized in the right lower extremity. Imaging & Doppler Findings: Right Compress Thrombus Diam Depth Time SFJ Yes None 8.9 mm 12.0 mm 3.72 sec Prox Thigh GSV Yes None 8.5 mm 9.0 mm 3.70 sec Mid Thigh GSV Yes None 9.2 mm 11.0 mm 2.90 sec Knee GSV Yes None 8.0 mm 7.0 mm 2.30 sec Prox Calf GSV Yes None 4.4 mm 6.0 mm Mid Calf GSV Yes None 4.5 mm 5.0 mm 1.74 sec Dist Calf GSV Yes None 8.0 mm 2.0 mm SPJ Yes None SSV Prox Yes None 0.00 sec SSV Mid Yes None SSV Distal Yes None Common FV 0.00 sec Mid Femoral Vein 0.00 sec Popliteal Vein 0.00 sec Right Compressible Thrombus Flow Distal External Iliac None Spontaneous/Phasic CFV Yes None Spontaneous/Phasic PFV Yes None FV Proximal Yes None Spontaneous/Phasic FV Mid Yes None FV Distal Yes None Popliteal Yes None Spontaneous/Phasic Peroneal Yes None PTV Yes None VASCULAR PRELIMINARY REPORT completed by Angie Niño RVT, RDMS on 11/30/2024 at 10:26:55 AM Final [facility] US LOWER EXTREMITY VENO US INSUFFICIENCY RIGHTon 11-30-2024 VAS US LOWER EXTREMITY VENOUS INSUFFICIENCY RIGHT [place] [address] [facility] [address] Vascular Lab Report [facility] US LOWER EXTREMITY VENOUS INSUFFICIENCY RIGHT Patient Name: KEVIN Acuña Physician: [id number] Samanta Whitley MD, RPVI Study Date: 11/30/2024 Ordering Physician: [id number] JOLLEY MRN/PID: [id number] Technologist: Angie Niño RVT, RDMS Technologist 2: Date of /Age: 2 1965 / 59 years Gender: M Admission Status: Outpatient Location Performed: [facility] Diagnosis/ICD: Localized (leg) edema-R60.0 CPT Codes: 76580 Venous reflux study VV Limited CONCLUSIONS: Right Lower Venous Insufficiency: Reflux is noted in the saphenofemoral junction, proximal thigh great saphenous, mid thigh great saphenous, knee level of great saphenous and mid calf great saphenous veins. Right Lower Venous: No evidence of acute deep vein thrombus visualized in the right lower extremity. Left Lower Venous: The left common femoral vein demonstrates normal spontaneous and respirophasic flow. Imaging & Doppler Findings: Right Compress Thrombus Diam Depth Time SFJ Yes None 8.9 mm 12.0 mm 3.72 sec Prox Thigh GSV Yes None 8.5 mm 9.0 mm 3.70 sec Mid Thigh GSV Yes None 9.2 mm 11.0 mm 2.90 sec Knee GSV Yes None 8.0 mm 7.0 mm 2.30 sec Prox Calf GSV Yes None 4.4 mm 6.0 mm Mid Calf GSV Yes None 4.5 mm 5.0 mm 1.74 sec Dist Calf GSV Yes None 8.0 mm 2.0 mm SPJ Yes None SSV Prox Yes None 0.00 sec SSV Mid Yes None SSV Distal Yes None Common FV 0.00 sec Mid Femoral Vein 0.00 sec Popliteal Vein 0.00 sec Right Compressible Thrombus Flow Distal External Iliac None Spontaneous/Phasic CFV Yes None Spontaneous/Phasic PFV Yes None FV Proximal Yes None Spontaneous/Phasic FV Mid Yes None FV Distal Yes None Popliteal Yes None Spontaneous/Phasic Peroneal Yes None PTV Yes None Left Flow CFV Spontaneous/Phasic [id number] Samanta Whitley MD, RPVI Final Normal [facility] ECG 12 Leadon 11-16-2024 Patient EKG shows ne w onset atrial fibrillation [facility] Work Phone: [facility] Work Phone: CBC (INCLUDES DIFF/PLT)on ABSOLUTE BAND NEUTROPHILS Normal [facility] Comment on above: Performed By: #### 9 0686, 4158, 5302, 71033, 1328 #### [facility] [address] [place] [address], [address] [place] [id number] Senior International Tax Manager: Mg Blake MD ABSOLUTE BASOPHILS Normal [facility] Comment on above: Performed By: #### 9 1172, 7600, 5363, 47930, 6399 #### [facility] of [address], [address] [place] [address] Senior International Tax Manager: Mg Blake MD ABSOLUTE BLASTS Normal [facility] Comment on above: Performed By: #### 9 2665, 7600, 5363, 74437, 6399 #### [facility] of [address], [address] [place] [address] Senior International Tax Manager: Mg Blake MD ABSOLUTE EOSINOPHILS Normal [facility] Comment on above: Performed By: #### 9 2665, 7600, 5363, 59267, 6399 #### [facility] of [address], [address] [place] [address] Senior International Tax Manager: Mg Blake MD ABSOLUTE LYMPHOCYTES Normal [facility] Comment on above: Performed By: #### 9 2665, 7600, 5363, 93667, 6399 #### [facility] of [address], [address] [place] [address] Senior International Tax Manager: Mg Blake MD ABSOLUTE METAMYELOCYTES Normal [facility] Comment on above: Performed By: #### 9 2665, 7600, 5363, 77939, 6399 #### [facility] of [address], [address] [place] [address] Senior International Tax Manager: Mg Blake MD ABSOLUTE MONOCYTES Normal [facility] Comment on above: Performed By: #### 9 2665, 7600, 5363, 52149, 6399 #### [facility] of [address], [address] [place] [address] Senior International Tax Manager: Mg Blake MD ABSOLUTE MYELOCYTES Normal [facility] Comment on above: Performed By: #### 9 2665, 7600, 5363, 17212, 6399 #### [facility] of [address], [address] [place] [address] Senior International Tax Manager: Mg Blake MD ABSOLUTE NEUTROPHILS Normal [facility] Comment on above: Performed By: #### 9 2665, 7600, 5363, 31684, 6399 #### [facility] [place] [address], [address] [place] [address] Senior International Tax Manager: gM Blake MD ABSOLUTE NUCLEATED RBC Normal [facility] Comment on above: Performed By: #### 9 2665, 7600, 5363, 58455, 6399 #### [facility] [place] [address], [address] [place] [address] Senior International Tax Manager: Mg Blake MD ABSOLUTE PROMYELOCYTES Normal [facility] Comment on above: Performed By: #### 9 2665, 7600, 5363, 83244, 6399 #### [facility] [place] [address], [address] [place] [address] Senior International Tax Manager: Mg Blake MD BAND NEUTROPHILS Normal [facility] Comment on above: Performed By: #### 9 2665, 7600, 5363, 31457, 6399 #### [facility] [place] [address], [address] [place] [address] Senior International Tax Manager: Mg lBake MD BASOPHILS Normal [facility] Comment on above: Performed By: #### 9 2665, 7600, 5363, 46876, 6399 #### [facility] [place] [address], [address] [place] [address] Senior International Tax Manager: Mg Blake MD BLASTS Normal [facility] Comment on above: Performed By: #### 9 2665, 7600, 5363, 65419, 6399 #### [facility] [place] [address], [address] [place] [address] Senior International Tax Manager: Mg Blake MD COMMENT(S) Normal [facility] Comment on above: Performed By: #### 9 2665, 7600, 5363, 60955, 6399 #### [facility] [place] [address], [address] [place] [address] Senior International Tax Manager: Mg Blake MD EOSINOPHILS Normal [facility] Comment on above: Performed By: #### 9 2665, 7600, 5363, 16689, 6399 #### [facility] [place] [address], [address] Senior International Tax Manager: Mg Blake MD HEMATOCRIT Normal [facility] Comment on above: Performed By: #### 9 2665, 7600, 5363, 13047, 6399 #### [facility] [address], [address] [place], [place] [id number] Senior International Tax Manager: Mg Blake MD HEMOGLOBIN Normal [facility] Comment on above: Performed By: #### 9 2665, 7600, 5363, 12744, 6399 #### [facility] [address], [address] [place] [address] Senior International Tax Manager: Mg Blake MD LYMPHOCYTES Normal [facility] Comment on above: Performed By: #### 9 2665, 7600, 5363, 16735, 6399 #### [facility] [address], [address] [place] [address] Senior International Tax Manager: Mg Blake MD MCH Normal [facility] Comment on above: Performed By: #### 9 2665, 7600, 5363, 96299, 6399 #### [facility] [address], [address] [place] [address] Senior International Tax Manager: Mg Blake MD [facility] Normal [facility] Comment on above: Performed By: #### 9 2665, 7600, 5363, 05482, 6399 #### [facility] [address], [address] [place] [address] Senior International Tax Manager: Mg Blake MD MCV Normal [facility] Comment on above: Performed By: #### 9 2665, 7600, 5363, 18051, 6399 #### [facility] [address], [address] [place] [address] Senior International Tax Manager: Mg Blake MD METAMYELOCYTES Normal [facility] Comment on above: Performed By: #### 9 2665, 7600, 5363, 52016, 6399 #### [facility] [address], [address] [place], [place] [phone] Senior International Tax Manager: Mg Blake MD MONOCYTES Normal [facility] Comment on above: Performed By: #### 9 2665, 7600, 5363, 94567, 6399 #### [facility] [address], [address] [place] [address] Senior International Tax Manager: Mg Blake MD MPV Normal [facility] Comment on above: Performed By: #### 9 2665, 7600, 5363, 77860, 6399 #### [facility] [place] [address], [address] [place] [address] Senior International Tax Manager: Mg Blake MD MYELOCYTES Normal [facility] Comment on above: Performed By: #### 9 2665, 7600, 5363, 31135, 6399 #### [facility] [address], [address] [place], [place] [phone] Senior International Tax Manager: Mg Blake MD NEUTROPHILS Normal [facility] Comment on above: Performed By: #### 9 2665, 7600, 5363, 62986, 6399 #### [facility] [address], [address] [place] [address] Senior International Tax Manager: Mg Blake MD NUCLEATED RBC Normal [facility] Comment on above: Performed By: #### 9 2665, 7600, 5363, 50165, 6399 #### [facility] [address], [address] [place] [address] Senior International Tax Manager: Mg Blake MD PLATELET COUNT Normal [facility] Comment on above: Performed By: #### 9 2665, 7600, 5363, 87721, 6399 #### [facility] [address], [address] [place] [phone] Senior International Tax Manager: Mg Blake MD PROMYELOCYTES Normal [facility] Comment on above: Performed By: #### 9 2665, 7600, 5363, 50574, 6399 #### [facility] [address], [address] [place], [place] [phone] Senior International Tax Manager: Mg Blake MD RDW Normal [facility] Comment on above: Performed By: #### 9 2665, 7600, 5363, 96701, 6399 #### [facility] [address], [address] [place] [address] Senior International Tax Manager: Mg Blake MD REACTIVE LYMPHOCYTES Normal [facility] Comment on above: Performed By: #### 9 2665, 7600, 5363, 73152, 6399 #### [facility] [address], [address] [place] [address] Senior International Tax Manager: Mg Blake MD RED BLOOD CELL COUNT Normal [facility] Comment on above: Performed By: #### 9 2665, 7600, 5363, 30582, 6399 #### [facility] [address], [address] [place] [address] Senior International Tax Manager: Mg Blake MD WHITE BLOOD CELL COUNT Normal [facility] Comment on above: Performed By: #### 9 2665, 7600, 5363, 66212, 6399 #### [facility] [address], [address] [place] [address] Senior International Tax Manager: Mg Blake MD COMPREHENSIVE METABOLIC PANE L W/ANION GAPon 11-07-2024 Albumin [Mass/Vol] 4.4 g/dL Normal 3.6-5.1 [facility] Comment on above: Performed By: #### 9 2665, 7600, 5363, 99065, 6399 #### [facility] [address], [address] [place] [address] Senior International Tax Manager: Mg Blake MD ALP [Catalytic activity/Vol] 53 U/L Normal 35-144 [facility] Comment on above: Performed By: #### 9 2665, 7600, 5363, 82258, 6399 #### [facility] [place] [address] Senior International Tax Manager: Mg Blake MD ALT [Catalytic activity/Vol] 25 U/L Normal 9-46 [facility] Comment on above: Performed By: #### 9 2665, 7600, 5363, 37828, 6399 #### [facility] [address], [address] [place] [address] Senior International Tax Manager: Mg Blake MD AST [Catalytic activity/Vol] 21 U/L Normal 10-35 [facility] Comment on above: Performed By: #### 9 2665, 7600, 5363, 40887, 6399 #### [facility] [address], [address] [place] [address] Senior International Tax Manager: Mg Blake MD Bilirubin [Mass/Vol] 0.9 mg/dL Normal 0.2-1.2 [facility] Comment on above: Performed By: #### 9 2665, 7600, 5363, , 6399 #### [facility] [address], [address] [place] [address] Senior International Tax Manager: Mg Blake MD Calcium [Mass/Vol] 9.2 mg/dL Normal 8.6-10.3 [facility] Comment on above: Performed By: #### 9 2665, 7600, 5363, 90866, 6399 #### [facility] [address], [address] [place] [address] Senior International Tax Manager: Mg Blake MD Chloride [Moles/Vol] 102 mmol/L Normal 98-110 [facility] Comment on above: Performed By: #### 9 5965, 7600, 5363, 59395, 6399 #### [facility] [address], [address] [place] [address] Senior International Tax Manager: Mg Blake MD CO2 [Moles/Vol] 28 mmol/L Normal 20-32 [facility] Comment on above: Performed By: #### 9 2665, 7600, 5363, 59397, 6399 #### [facility] [address], [address] [place] [address] Senior International Tax Manager: Mg Blake MD Creatinine [Mass/Vol] 0.86 mg/dL Normal 0.70-1.[address] [facility] Comment on above: Performed By: #### 9 2665, 7600, 5363, 46681, 6399 #### [facility] [address], [address] [place] [address] Senior International Tax Manager: Mg Blake MD ELECTROLYTE BALANCE 9 mmol/L (calc) Normal 7-17 [facility] Comment on above: Performed By: #### 9 2665, 7600, 5363, 02096, 6399 #### [facility] [address], [address] [place] [address] Senior International Tax Manager: Mg Blake MD GFR/1.73 sq M.predicted among non-blacks MDRD (S/P/Bld) [Vol rate/Area] 100 mL/min/{1.73_m2} Normal > OR = 60 [facility] Comment on above: Performed By: #### 9 1005, 7600, 5363, 47401, 6399 #### [facility] [place] [address] Senior International Tax Manager: Mg Blake MD Glucose [Mass/Vol] 110 mg/dL High 65-99 [facility] Comment on above: Result Comment: Fasting reference interval For someone without known diabetes, a glucose value between 100 and 125 mg/dL is consistent with prediabetes and should be confirmed with a follow-up test. Performed By: #### 9 7925, 7600, 5363, 42439, 6399 #### [facility] [place] [address] Senior International Tax Manager: Mg Blake MD Potassium [Moles/Vol] 4.4 mmol/L Normal 3.5-5.3 [facility] Comment on above: Performed By: #### 9 1095, 7600, 5363, 19178, 6399 #### [facility] [place] [address] Senior International Tax Manager: Mg Blake MD Protein [Mass/Vol] 6.8 g/dL Normal 6.1-8.1 [facility] Comment on above: Performed By: #### 9 4105, 7600, 5363, 19742, 6399 #### [facility] [address] [place] [address] Senior International Tax Manager: Mg Blake MD Sodium [Moles/Vol] 139 mmol/L Normal 135-146 [facility] Comment on above: Performed By: #### 9 2665, 7600, 5363, 56442, 6399 #### [facility] [address], [address] [place] [address] Senior International Tax Manager: Mg Blake MD Urea nitrogen [Mass/Vol] 14 mg/dL Normal 7-25 [facility] Comment on above: Performed By: #### 9 2665, 7600, 5363, 69934, 6399 #### [facility] [address], [address] [place] [address] Senior International Tax Manager: Mg Blake MD LIPID PANEL, [facility] 10-24 Cholesterol [Mass/Vol] 223 mg/dL High <200 [facility] Comment on above: Order Comment: FASTI NG:YES FASTING: YES Performed By: #### 9 2665, 7600, 5363, 23491, 6399 #### [facility] [address], [address] [place] [address] Senior International Tax Manager: Mg Blake MD Cholesterol in HDL [Mass/Vol] 38 mg/dL Low > OR = 40 [facility] Comment on above: Order Comment: FASTI NG:YES FASTING: YES Performed By: #### 9 2665, 7600, 5363, 12894, 6399 #### [facility] [address], [address] [place] [address] Senior International Tax Manager: Mg Blake MD Cholesterol.total/Chol esterol in HDL [Mass ratio] 5.9 {ratio} High <5.0 [facility] Comment on above: Order Comment: FASTI NG:YES FASTING: YES Performed By: #### 9 2665, 7600, 5363, 35913, 6399 #### [facility] [address], [address] [place] [address] Senior International Tax Manager: Mg Blake MD LDL-CHOLESTEROL Normal [facility] Comment on above: Order Comment: FASTI NG:YES FASTING: YES Result Comment: LDL cholesterol not calculated. Triglyceride levels greater than 400 mg/dL invalidate calculated LDL results. Reference range: <100 Desirable range <100 mg/dL for primary prevention; <70 mg/dL for patients with CHD or diabetic patients with > or = 2 CHD risk factors. LDL-C is now calculated using the Charmaine calculation, which is a validated novel method providing better accuracy than the Friedewald equation in the estimation of LDL-C. Bayron SS et al. CATHY. 2013;310(19): 9771-9572 (http://education.Get Smart Content/faq/YQB245) Performed By: #### 9 1785, 2200, 5363, 64813, 4474 #### [facility] [address], [address] [place] [address] Senior International Tax Manager: Mg Blake MD NON HDL CHOLESTEROL 185 mg/dL (calc) High <130 [facility] Comment on above: Order Comment: FASTI NG:YES FASTING: YES Result Comment: For patients with diabetes plus 1 major ASCVD risk factor, treating to a non-HDL-C goal of <100 mg/dL (LDL-C of <70 mg/dL) is considered a therapeutic option. Performed By: #### 9 7312, 2490, 5363, 74848, 3512 #### [facility] [address], [address] [place] [address] Senior International Tax Manager: Mg Blake MD Triglyceride [Mass/Vol] 435 mg/dL High <150 [facility] Comment on above: Order Comment: FASTI NG:YES FASTING: YES Result Comment: If a non-fasting specimen was collected, consider repeat triglyceride testing on a fasting specimen if clinically indicated. Devan et al. J. of Clin. Lipidol. 2015;9:129-169. Performed By: #### 9 5219, 3770, 5363, 42180, 5999 #### [facility] [address], [address] [place], [place] [phone] Senior International Tax Manager: Mg Blake MD PSA, TOTALon 11-07-2024 PSA, TOTAL 0.74 ng/mL Normal < OR = 4.00 [facility] Comment on above: Result Comment: The total PSA value from this assay system is standardized against the WHO standard. The test result will be approximately 20% lower when compared to the equimolar-standardized total PSA (Eli Marce). Comparison of serial PSA results should be interpreted with this fact in mind. This test was performed using the Siemens chemiluminescent method. Values obtained from different assay methods cannot be used interchangeably. PSA levels, regardless of value, should not be interpreted as absolute evidence of the presence or absence of disease. Performed By: #### 9 2665, 7600, 5363, 00307, 6399 #### [facility] [address], [address] [place], [place] [phone] Senior International Tax Manager: Mg Blake MD TSH W/REFLEX TO FT4on 2024 TSH W/REFLEX TO FT4 2.50 mIU/L Normal 0.40-4.50 [facility] Comment on above: Performed By: #### 9 2665, 7600, 5363, 15932, 6399 #### [facility] [address], [address] [place], [place] [phone] Senior International Tax Manager: Mg Blake MD POCT Influenza A/B manually resultedon 10-14-2024 Interpretation and review of laboratory results Abnormal [facility] Work Phone: POC Rapid Influenza A Positive Abnormal Negative [facility] Work Phone: POC Rapid Influenza B Negative Negative [facility] Work Phone: [facility] Work Phone: Carcinoembryonic Agon 2024 Carcinoembryonic Ag [Mass/Vol] 1.4 ug/L Normal [facility] Comment on above: Order Comment: REF V ALUES NONSMOKERS 0-2.5 SMOKERS 0-5.0 CEA testing is performed by chemiluminescent immunoassay using the Siemens Breather. Values obtained with different analytic methods cannot be used interchangeably. Serum CEA measurement is intended for use as an aid in the management of patients previously treated for cancer. This assay is not intended for screening or diagnosis of cancer in the general population. The results must not be used as the sole means for clinical diagnosis or patient management decisions. Performed By: #### 2 039-6 #### JOANIE BORIS Moffett ([id number]) [facility] ([facility] [address] [place], [place] [id number] Flexible Sign[facility]oidoscopy In [facility] 08-09-2024 Hunter Baig MD 08/09/2024 12:18 PM Flexible Signmoidoscopy In Clinic Date/Time: 08/09/2024 12:12 PM Performed by: Hunter Baig MD Authorized by: Hunter Baig MD Comments: Perianal exam: Non-thrombosed external hemorrhoids. CLARISSA: Intact sphincter tone. No palpable mass/lesion/blood. Flexible sigmoidoscopy: Scope advanced to sigmoid colon where formed stool was encountered. No evidence of diverticulosis in distal sigmoid colon. Rectal mucosa well visualized. No scar identified. No masses/lesions/polyps within rectum. [facility] Work Phone: [facility] Work Phone: CT CHEST ABDOMEN PELVIS W IV CONTRASTon 08-02-2024 CT CHEST ABDOMEN PELVIS W IV CONTRAST Interpreted By: Richard Williamson and Ebai Jerky STUDY: CT CHEST ABDOMEN PELVIS W IV CONTRAST; 08/02/2024 12:15 pm INDICATION: Signs/Symptoms:Maligna nt rectal polyp. ,C20 Malignant neoplasm of rectum (Multi) Per EMR: Patient with a history of malignant rectal polyp/status post endoscopy resection. COMPARISON: 07/29/2023. ACCESSION NUMBER(S): [id number] ORDERING CLINICIAN: KELLY OBRIEN TECHNIQUE: Contiguous axial images of the chest, abdomen, and pelvis were obtained. Coronal and sagittal reformatted images were reconstructed from the axial data. 75 ML of Omnipaque 350 was administered intravenously without immediate complication. FINDINGS: CT CHEST: MEDIASTINUM AND LYMPH NODES: The thyroid gland is unremarkable. The esophageal wall appears within normal limits. No enlarged intrathoracic or axillary lymph nodes by imaging criteria. No pneumomediastinum. VESSELS: Stable prominence of the ascending aorta measuring up to 4.1 cm. There remainder of the aorta is normal in caliber.. Mild aortic atherosclerosis. HEART: Stable mild cardiomegaly. Mild coronary artery calcifications. No significant pericardial effusion. LUNG, AIRWAYS, PLEURA: The trachea and mainstem bronchi are patent. No endobronchial lesion. No consolidation, pulmonary edema, pleural effusion or pneumothorax. There are 2 stable 4 mm lesions along the left major fissure (series 204, image 224 and 236). Unchanged 2 subpleural nodularities within the posterior aspect of the left lower lung base measuring 4 mm (series 204, image 256). No new pulmonary nodules. CHEST WALL SOFT TISSUES: No discernible acute abnormality. Unchanged partially visualized irregularity of the proximal left clavicle, compatible with the sequela of prior trauma. OSSEOUS STRUCTURES: No acute osseous abnormality. CT ABDOMEN/PELVIS: ABDOMINAL WALL: No significant abnormality. LIVER: Diffuse decrease in liver parenchyma attenuation suggestive of hepatic steatosis. Liver is normal in size. No focal liver lesions. BILE DUCTS: No significant intrahepatic or extrahepatic dilatation. GALLBLADDER: No significant abnormality. PANCREAS: No significant abnormality. SPLEEN: No significant abnormality. ADRENALS: No significant abnormality. KIDNEYS, URETERS, BLADDER: No significant abnormality. REPRODUCTIVE ORGANS: No significant abnormality. VESSELS: No significant abnormality. RETROPERITONEUM/LYMPH NODES: No enlarged lymph nodes. No acute retroperitoneal abnormality. BOWEL/MESENTERY/PERITO NEUM: Colonic diverticulosis without evidence of diverticulitis. No inflammatory bowel wall thickening or dilatation. Normal appendix. No ascites, free air, or fluid collection. MUSCULOSKELETAL: No acute osseous abnormality. Unchanged 1.1 cm lucent region along the posterior T10 vertebral body (series 203, image 82). Unchanged small lucent regions within the bilateral posterior iliac bones. Unchanged multilevel degenerative changes of the visualized spine.). IMPRESSION: Colorectal cancer restaging scan compared to 07/29/2023. No evidence of metastatic disease in the chest abdomen or pelvis. Additional stable chronic findings as described above including stable hepatic steatosis and few stable pulmonary nodules. I personally reviewed the images/study and I agree with the findings as stated by Resident Jim Tan. MACRO: None. Signed by: Richard Williamson 08/03/2024 8:00 PM Dictation workstation: [id number] [facility] flexible sigmoidoscopyon Alexander Gamboa MD 08/10/2023 2:34 PM Flexible sigmoidoscopy Date/Time: 08/10/2023 2:31 PM Performed by: Alexander Gamboa MD Authorized by: Alexander Gamboa MD Consent: Consent obtained: Written Consent given by: Patient Procedure specific details: Digital rectal exam: normal Flexible sigmoidoscopy: normal rectal mucosa, no polyps or masses [facility] Work Phone: [facility] Work Phone: Established Visit (Colon and Rectal Surgery)on 03-23-2023 Established Visit (Colon and Rectal Surgery) Diagnoses/Problems Assessed Rectal malignant neoplasm (154.1) (C20) Orders Rectal malignant neoplasm Comprehensive Metabolic Panel; Status:Active - Retrospective By Protocol Authorization; Requested for:[id number]; Patient Discussion/Summary History of malignant rectal polyp s/p endoscopic resection. No signs of regrowth on flex sig today in office Patient to return for surveillance in July. CT chest/abdomen/pelvis prior to that visit. History of Present Illness Kevin Odom is a 57M with history of malignant rectal polyp with no high-risk features. CT and MRI in November 2022 without evidence of systemic or local pelvic spread. MDT recommendation is close observation. He presents to clinic today for 3 month flexible sigmoidoscopy. Doing well. No complaints. No bleeding or change in bowel habits. Active Problems Problems Abnormal EKG (794.31) (R94.31) Acute sinusitis (461.9) (J01.90) Acute URI (465.9) (J06.9) Cellulitis of left abdominal wall (682.2) (L03.311) Chronic pansinusitis (473.8) (J32.4) Cough (786.2) (R05.9) Dysfunction of right eustachian tube (381.81) (H69.91) Epidermal inclusion cyst (706.2) (L72.0) Fever (780.60) (R50.9) History of hyperlipidemia (V12.29) (Z86.39) Metatarsalgia (726.70) (M77.40) Metatarsalgia of right foot (726.70) (M77.41) Nasal septal deviation (470) (J34.2) Nasal turbinate hypertrophy (478.0) (J34.3) Need for vaccination (V05.9) (Z23) OME (otitis media with effusion), right (381.4) (H65.91) Phlebitis of superficial vein of right lower extremity (451.0) (I80.01) Primary cancer of rectum (154.1) (C20) Rectal malignant neoplasm (154.1) (C20) Right calf pain (729.5) (M79.661) Right foot pain (729.5) (M79.671) Right leg swelling (729.81) (M79.89) Screening for colon cancer (V76.51) (Z12.11) Superficial thrombosis of right lower extremity (453.6) (I82.811) Tick bite (919.4,E906.4) (W57.XXXA) Varicose veins (454.9) (I83.90) Viral illness (079.99) (B34.9) Visit for suture removal (V58.32) (Z48.02) Past Medical History Problems History of Frequent sinus infections (473.9) (J32.9) Surgical History Problems History of Hernia Repair History of Nose Surgery Reset broken nose Family History Father Family history of hearing problem (V19.2) (Z82.2) Family history of skin cancer (V16.8) (Z80.8) Social History Problems Alcohol use (V49.89) (Z78.9) Caffeine use (V49.89) (Z78.9) Non-smoker (V49.89) (Z78.9) Allergies Medication No Known Drug Allergies Recorded By: Bel Del Toro; 08/17/2014 11:49:30 AM Current Meds Medication NameInstruction No Reported Medications Vitals Vital Signs Recorded: [id number] 12:07PM Heart Rate56 Cmkzppit162 Vnkipbpzl435 Height6 ft 1 in Nnwlrv809 lb 8 oz BMI Dktessfupm19.88 kg/m2 BSA Calculated2.48 Physical Exam Constitutional - General appearance: In no acute distress, well appearing and well nourished. Abdomen and Pelvis - Digital Rectal Examination: Normal no masses. Procedure Flexible sigmoidoscopy: Normal rectal mucosa. No lesions in distal sigmoid colon or rectum. Patient tolerated procedure well. Signatures Electronically signed by : Alexander Gamboa MD; Mar 23 2023 12:46PM EST (Author) Normal [facility] Established Visit (Colon and Rectal Surgery)on 12-22-2022 Established Visit (Colon and Rectal Surgery) Diagnoses/Problems Assessed Rectal malignant neoplasm (154.1) (C20) Orders Rectal malignant neoplasm MRI Rectum w/wo Contrast; Status:Active; Requested for:[id number]; Radiologist to Determine Optimal Study : Y Does the patient have a Cochlear Implant, Pacemaker, Defibrilator, Pacing Wire, Brain Aneurysm Clip, Implanted Nerve or Bone Graft Simulator, Implanted Breast Tissue Trawl Net Maker, Glucose Monitor, or Neulasta Device? : No What are the patient's signs and symptoms? : F/u rectal cancer Patient Discussion/Summary Malignant rectal polyp with no high-risk features CT and MRI with no systemic or local pelvic spread MDT recommendation is close observation Will return to clinic for flexible sigmoidoscopy in 3 months. Patient understands and agrees with plan. Chief Complaint telephone visit History of Present Illness Kevin Odom is a 57M with Malignant rectal polyp. Path shows mod differentiated, no LVI, low budding. Piecemeal resection. Pathology reviewed by pathology department. MDT review on 12/17/22 recommendations include close follow-up with flexible sigmoidoscopy and MRI in 3 months. 12/01/22 - CT C/A/P IMPRESSION: 1. No evidence of thoracic metastatic disease. 2. Hyperdense possible surgical material or debris in the rectum. No discrete rectal wall thickening or perirectal nodularity/lymphadenop athy. 3. Subtle 0.9 cm indeterminate lesion in the left lobe of diffusely fatty infiltrated liver. Metastasis not excluded. Follow-up or further evaluation with liver MRI suggested. 4. Distal colon diverticulosis. 5. Small amount of fluid in the right inguinal canal. 6. Other findings as described above. 12/15/22 - MRI Rectum: no rectal mass, no lymphadenopathy Active Problems Problems Abnormal EKG (794.31) (R94.31) Acute sinusitis (461.9) (J01.90) Acute URI (465.9) (J06.9) Cellulitis of left abdominal wall (682.2) (L03.311) Chronic pansinusitis (473.8) (J32.4) Cough (786.2) (R05.9) Dysfunction of right eustachian tube (381.81) (H69.81) Epidermal inclusion cyst (706.2) (L72.0) Fever (780.60) (R50.9) History of hyperlipidemia (V12.29) (Z86.39) Metatarsalgia (726.70) (M77.40) Metatarsalgia of right foot (726.70) (M77.41) Nasal septal deviation (470) (J34.2) Nasal turbinate hypertrophy (478.0) (J34.3) Need for vaccination (V05.9) (Z23) OME (otitis media with effusion), right (381.4) (H65.91) Phlebitis of superficial vein of right lower extremity (451.0) (I80.01) Primary cancer of rectum (154.1) (C20) Rectal malignant neoplasm (154.1) (C20) Right calf pain (729.5) (M79.661) Right foot pain (729.5) (M79.671) Right leg swelling (729.81) (M79.89) Screening for colon cancer (V76.51) (Z12.11) Superficial thrombosis of right lower extremity (453.6) (I82.811) Tick bite (919.4,E906.4) (W57.XXXA) Varicose veins (454.9) (I83.90) Viral illness (079.99) (B34.9) Visit for suture removal (V58.32) (Z48.02) Past Medical History Problems History of Frequent sinus infections (473.9) (J32.9) Surgical History Problems History of Hernia Repair History of Nose Surgery Reset broken nose Family History Father Family history of hearing problem (V19.2) (Z82.2) Family history of skin cancer (V16.8) (Z80.8) Social History Problems Alcohol use (V49.89) (Z78.9) Caffeine use (V49.89) (Z78.9) Non-smoker (V49.89) (Z78.9) Allergies Medication No Known Drug Allergies Recorded By: Bel Del Toro; 08/17/2014 11:49:30 AM Signatures Electronically signed by : Alexander Gamboa MD; Jan 07 2023 8:54AM EST (Author) Normal [facility] CT CHEST ABDOMEN PELVIS W IV CONTRASTon 12-14-2022 CT CHEST ABDOMEN PELVIS W IV CONTRAST Patient Name: KEVIN ODOM STUDY: CT CHEST ABDOMEN PELVIS W IV CONTRAST; 12/14/2022 9:47 am INDICATION: rectal cancer treatment response assessment Malignant neoplasm of rectum C20: Rectal malignant neoplasm. COMPARISON: None. ACCESSION NUMBER(S): [id number] ORDERING CLINICIAN: ALEXANDER GAMBOA TECHNIQUE: CT of the chest, abdomen, and pelvis was performed. Sagittal and coronal reconstructions were generated. 75 milliliterOMNIPAQUE 350 intravenous contrast given for the examination. FINDINGS: CHEST: CHEST WALL AND LOWER NECK: No significant axillary lymphadenopathy. MEDIASTINUM AND LIBBY: No significant mediastinal or hilar lymphadenopathy. Slight increased density in the anterior mediastinal fat, possible residual thymic tissue or small lymph nodes. HEART AND VESSELS: The heart is normal in size. No significant pericardial effusion. Scattered aortic atherosclerotic calcifications. LUNGS, PLEURA, LARGE AIRWAYS: No sizable pulmonary nodule or focal airspace consolidation. No significant pleural effusion. The central airways are patent. BONES: Multilevel thoracic vertebral degenerative endplate spurring. Partially included smooth expansile possible remote fracture deformity of the left clavicle on the most superior images. ABDOMEN/PELVIS: ABDOMINAL ORGANS: LIVER: Diffusely hypodense/fatty infiltrated. Subtle 0.9 cm slightly dense/enhancing nodule anteriorly in the left lobe image 89/234. GALL BLADDER AND BILIARY TREE: No calcified gallstone or gallbladder wall thickening SPLEEN: No focal lesion PANCREAS: No focal lesion ADRENALS: No adrenal mass KIDNEYS AND URETERS: No renal mass or hydronephrosis within limits of nephrogram phase images. BOWEL: No abnormally dilated large or small bowel loops. Dot of air in nondilated retrocecal appendix. Distal colon diverticulosis. Moderately redundant sigmoid colon. Minimal hyperdensity along the left anterior rectum. No discrete rectal wall thickening PERITONEUM, RETROPERITONEUM, NODES: No significant retroperitoneal, mesenteric or pelvic lymphadenopathy. No significant free fluid. No free air. VESSELS: Trace atherosclerotic calcifications. No abdominal aortic aneurysm. PELVIS: Urinary bladder is moderately distended and grossly normal in contour. No gross prostate enlargement. Small amount of fluid in the included right inguinal canal. ABDOMINAL WALL: No sizable abdominal wall hernia. BONES: Scoliosis and degenerative changes of the lumbar spine. No definite focal concerning lytic or blastic osseous lesion. IMPRESSION: CHEST: No evidence of thoracic metastatic disease. ABDOMEN AND PELVIS: Hyperdense possible surgical material or debris in the rectum. No discrete rectal wall thickening or perirectal nodularity/lymphadenop athy. Subtle 0.9 cm indeterminate lesion in the left lobe of diffusely fatty infiltrated liver. Metastasis not excluded. Follow-up or further evaluation with liver MRI suggested. Distal colon diverticulosis. Small amount of fluid in the right inguinal canal. Other findings as described above. Electronically signed by: JAZLYN HUTCHINS MD Normal [facility] Falls Screening (Age 18+)on 12-01-2022 Adult depression screening assessment No MG-Surgery- B [facility] Work Phone: Fall risk assessment b) One or more fall s in the last year HH-Obqwtvu-D [facility] Work Phone: Tobacco use status CPHS b) No TF-Cvsllhz-X [employer] [facility] Work Phone: Initial Visit (Colon and Rec [place] [facility])on 12-01-2022 Initial Visit (Colon and Rectal Surgery) Diagnoses/Problems Assessed Primary cancer of rectum (154.1) (C20) Patient Discussion/Summary Malignant rectal polyp. Path shows mod differentiated, no LVI, low budding. Piecemeal resection. Plan: Rectal cancer MRI in [address] chest/abdomen/pelvis (can be done close to home) Get his path slides here for review once all above done, review at MDT virtual appointment with me on 12/22 History of Present Illness Kevin Odom is a with new rectal cancer. Underwent diagnostic colonoscopy one month ago for bleeding. Found to have 12 mm rectal polyp removed by snare. Path revealed mod diff adenocarcinoma arising in tubular adenoma. No LVI. Low tumor budding. No imaging yet. Otherwise healthy. Active Problems Problems Abnormal EKG (794.31) (R94.31) Acute sinusitis (461.9) (J01.90) Acute URI (465.9) (J06.9) Cellulitis of left abdominal wall (682.2) (L03.311) Chronic pansinusitis (473.8) (J32.4) Cough (786.2) (R05.9) Dysfunction of right eustachian tube (381.81) (H69.81) Epidermal inclusion cyst (706.2) (L72.0) Fever (780.60) (R50.9) History of hyperlipidemia (V12.29) (Z86.39) Metatarsalgia (726.70) (M77.40) Metatarsalgia of right foot (726.70) (M77.41) Nasal septal deviation (470) (J34.2) Nasal turbinate hypertrophy (478.0) (J34.3) Need for vaccination (V05.9) (Z23) OME (otitis media with effusion), right (381.4) (H65.91) Phlebitis of superficial vein of right lower extremity (451.0) (I80.01) Right calf pain (729.5) (M79.661) Right foot pain (729.5) (M79.671) Right leg swelling (729.81) (M79.89) Screening for colon cancer (V76.51) (Z12.11) Superficial thrombosis of right lower extremity (453.6) (I82.811) Tick bite (919.4,E906.4) (W57.XXXA) Varicose veins (454.9) (I83.90) Viral illness (079.99) (B34.9) Visit for suture removal (V58.32) (Z48.02) Past Medical History Problems History of Frequent sinus infections (473.9) (J32.9) Surgical History Problems History of Hernia Repair History of Nose Surgery Reset broken nose Family History Father Family history of hearing problem (V19.2) (Z82.2) Family history of skin cancer (V16.8) (Z80.8) Social History Problems Alcohol use (V49.89) (Z78.9) Caffeine use (V49.89) (Z78.9) Non-smoker (V49.89) (Z78.9) Allergies Medication No Known Drug Allergies Recorded By: Bel Del Toro; 08/17/2014 11:49:30 AM Vitals Vital Signs Recorded: [id number] 08:50AM Dozolgbuozy65.1 F, Tympanic Heart Rate52 Jnbxcvhz756 Wmfqnctom95 Height6 ft 1 in Nzkljp482 lb BMI Smkuuaioui17.28 kg/m2 BSA Calculated2.46 Tobacco Useb) No PHQ-2 #1. Over the last 2 weeks have you felt down, depressed or hopeless? (If yes, answer PHQ-9 below)No PHQ-2 #2. Over the last 2 weeks have you felt little interest or pleasure in doing things? (If yes, answer PHQ-9 below)No Falls Screening (Age 18+)b) One or more falls in the last year Pain Scale0/10 Physical Exam Constitutional - General appearance: In no acute distress, well appearing and well nourished. Eyes Sclerae: Anicteric Neck - Exam: Appearance of the neck was normal. No neck masses observed. Thyroid Examination: Not enlarged and there were no palpable nodules. Pulmonary - Respiratory effort: Normal respiration. Auscultation of lungs: Clear to auscultation. Cardiovascular - Auscultation of heart: Normal rate and rhythm, no murmurs. Carotid arteries exam: Pulse normal with no bruits. Examination of Abdominal Aorta: abdominal aorta was normal. Examination of Pedal Pulses: pedal pulses were normal. Examination of extremities for edema and/or varicosities: No peripheral edema. Abdomen and Pelvis - Abdomen: Non-tender, no abdominal masses. Liver and spleen: No hepatosplenomegaly. Examination for hernias: Hernial orifices intact. Lymphatic - No lymphadenopathy . Neurologic - Cranial Nerve Exam: Non-focal. Grossly intact. Reflexes: Normal. Psychiatric - Orientation to person, place, and time: Normal. Mood and affect: Normal. Signatures Electronically signed by : Alexander Gamboa MD; Dec 01 2022 9:41AM EST (Author) Normal [employer] [facility] SURGICAL PATHOLOGY REFERENCE LAB CONSULTon 11-02-2022 CASE REPORT Normal [facility] Comment on above: Order Comment: Speci men Type: SLIDE Ordering Facility: [facility] Address: [address] [place] [address] Result Comment: Surg [facility] Pathology Report Case: [id number] Authorizing Provider: Kendall Person MD Collected: 11/02/2022 02:46 PM Ordering Location: Hosp Lab Main Received: 11/02/2022 02:45 PM Pathologist: Santo Treviño MD Specimen: SLIDE(S), 6 SLIDES ([id number]) Performed By: #### L [id number] #### [facility] CLIA [id number] [address] [place] [address] [place] CLINICAL HISTORY CONSULT REQUESTED Normal C [facility] Comment on above: Order Comment: Speci men Type: SLIDE Ordering Facility: [facility] Address: [place] [address] Performed By: #### L [id number] #### [facility] CLIA [id number] [address] [place] [address] DIAGNOSIS COMMENT Normal [facility] Comment on above: Order Comment: Speci men Type: SLIDE Ordering Facility: [facility] Address: [place] [address] Result Comment: Than k you for allowing us the opportunity to review this case in consultation representing the colonic polyps from a 57-year-old man who presented for screening colonoscopy. A 3 mm sigmoid colon polyp and a 12 mm rectal polyp were identified. Per provided gross description, the rectal polyp was received in multiple fragments. Histologic sections of the rectal polyp show multiple fragments of tubular adenoma with extensive high-grade dysplasia wherein the crypts and surface epithelium are lined by cells with nuclear hyperchromasia, elongation, stratification, and loss of nuclear polarity. Architecturally, the glands form complex structures with ijcg-mv-wfje glands and cribriforming. Additionally, there are foci of dysplastic glands that demonstrate infiltrative growth with associated desmoplastic stroma, diagnostic of invasive adenocarcinoma. There is no evidence of definitive lymphovascular invasion. Tumor budding is low. Thank you for sending this case in consultation. Please do not hesitate to contact us at [phone] with questions or if additional follow up information becomes available. This case was reviewed in conjunction with the GI pathology fellow, Inna Wagner M.D. Performed By: #### L [id number] #### [facility] CLIA [id number] [address] [place] [address] FINAL DIAGNOSIS Normal [facility] Comment on above: Order Comment: Speci men Type: SLIDE Ordering Facility: [facility] Address: [place] [address] Result Comment: 1. S igmoid colon polyp, polypectomy (A): - Tubular adenoma. 2. Rectum polyp, polypectomy (B): - Invasive moderately-differentiated adenocarcinoma arising in a tubular adenoma with high-grade dysplasia. JD/ANNA 11/03/2022 Performed By: #### L [id number] #### [facility] CLIA [id number] [address] [place] [address] OF [facility] FINAL PERFORMING LAB Normal [facility] Comment on above: Order Comment: Speci men Type: SLIDE Ordering Facility: [facility] Address: [address] [place] [address] Result Comment: Diag nostic interpretation performed at [facility], [address] [place] [address] CLIA# [id number] Special Service Representative: Ángel Ozuna M.D. Performed By: #### L [id number] #### [facility] CLIA [id number] [address] [place] [address] [place] Clinical Summary: HMSPatient IDon 08-25-2019 [facility] Work Phone: Clinical Summary: Scanned Hi story Summaryon 08-25-2019 adl form etoh alcohol performance Beer [facility] Work Phone: consumes three or more drinks of alcohol (beer, wine, liquor) daily or almost daily less than 1 drink per day [facility] Work Phone: Data entered by patient exercise frequency 4 days per week [facility] Work Phone: Data entered by patient exercise type walkingstrength training [facility] Work Phone: data entered by patient, alcohol (ethanol or ETOH) use Yes [facility] Work Phone: data entered by patient, drug (of abuse) use No [facility] Work Phone: data entered by patient, Employer Name Employed [facility] Work Phone: data entered by patient, exercise history Yes [facility] Work Phone: data entered by patient, father's medical history Cancer [facility] Work Phone: Data entered by patient, history of past surgeries Hernia repair [facility] Work Phone: data entered by patient, mother's medical history Heart diseaseCOPD [facility] Work Phone: Data entered by patient, problem list Patient Denies Medical Problems or Conditions [facility] Work Phone: data entered by patient, social history, current smoker never smoker [facility] Work Phone: data entered by patient, social history, marital status [facility] Work Phone: father of patient is alive or Alive [facility] Work Phone: Housing Type: apartment, house, intermediate, trailer, none House [facility] Work Phone: housing unit size (asthma environmental history, housing) (from single family to don't know) 3 Floors [facility] Work Phone: medical history of patient's brother(s) Heart disease [facility] Work Phone: mother of patient is alive or Alive [facility] Work Phone: Number of dependent children No [facility] Work Phone: Office Visit: New - 1st visi t with practice, Rm: 4on 08-25-2019 NEGATED: Highlighted rowMRI (magnetic resonance imaging) history of the right foot and toes on 08/14/2019 at [facility] Work Phone: NEGATED: Highlighted rowTobacco smoking status NHIS Tobacco smoking status NHIS [facility] Work Phone: MRI FOOT/TOES WO IVCON RTon 08-14-2019 MRI FOOT/TOES WO IVCON RT * * *Final Report* * * DATE OF EXAM: Aug 14 2019 7:23AM [facility]M 0195 - MRI FOOT/TOES WO IVCON RT / PROCEDURE REASON: m79.671 rt foot pain * * * * Physician Interpretation * * * * MRI RIGHT FOOT WITHOUT IV CONTRAST: CLINICAL INDICATION: Sudden onset of pain ball of foot 1 week ago. Difficult to bear weight. No known injury. COMPARISON: None. Serial images are obtained of the right foot with attention to the midfoot and forefoot in all three planes with STIR, sagittal and long axis with T1 weighting and short axis with fat-saturated proton density weighting without IV contrast material. There is a well-corticated bipartite tibial sesamoid. There is a very mild pattern of marrow edema proximal distal fragment. There is no associated soft tissue edema. There is no other focal or diffuse osseous signal abnormality. There is a 4 mm bilobed fluid signal intensity structure seen along the plantar fifth metatarsal head. There is no other soft tissue signal abnormality. The flexor and extensor tendons are unremarkable. The visualized intrinsic muscles are unremarkable. IMPRESSION: Radiograph correlation is required. Bipartite tibial sesamoid with very minimal pattern of marrow edema proximal distal fragment. Correlate with physical exam findings for possible mild sesamoiditis. 4 mm fluid signal intensity structure plantar fifth metatarsal head. This finding could represent a small ganglion cyst. Adventitial bursitis is considered less likely without associated soft tissue edema. Otherwise, etiology of a ball of foot pain remains uncertain. A wet reading is made available at time of dictation as requested.. Drying Room Supervisor: PSCMayela Transcribe Date/Time: Aug 14 2019 8:51A Dictated by : SUSAN BANUELOS MD This examination was interpreted and the report reviewed and electronically signed by: SUSAN BANUELOS MD on Aug 14 2019 1:36PM EST Normal [facility] Radiologyon 08-10-2019 XR Foot 3 Views Interpreted by: ROSEMARY FISHER 08/10/19 10:37 Patient Name: KEVIN ODOM STUDY: Right FOOT; COMPLETE, MIN 3 VIEWS; 08/10/2019 10:34 am INDICATION: Pain COMPARISON: 09/20/2015 ACCESSION NUMBER(S): [id number] ORDERING CLINICIAN: MELQUIADES JOLLEY FINDINGS: No acute fracture or dislocation is seen. No soft tissue swelling is identified. No erosions or periosteal reaction is seen. Soft tissue calcification is again noted in the plantar soft tissues, which is unchanged. Mild degenerative changes are seen in the distal and proximal interphalangeal joints and 1st metatarsophalangeal joint. No radiopaque foreign bodies are seen. Calcaneal spur is seen. IMPRESSION: Degenerative changes. Calcaneal spur. No acute fracture or dislocation. Electronically signed by: XIMENA FISHER 08/10/19 10:37 Normal [facility] Work Phone: Otheron 06-01-2019 [id number]. [id number] [facility], [address] [place] [address], [address] [address]Tel and [facility] Stress EchoPatient Name: KEVIN ODOM Ordering Physician: Melquiades Carson Date: 06/01/2019 Reading Physician: Jaylyn Cheng MDMRN/PID: [id number] Supervising Physician: Jaylyn Cheng MDAccession/Order#: [id number] Referring Physician: Melquiades Almaguerte of : 1965 PCP:Gender: M Fellow:Admit Date: 06/01/2019 Fellow:Admission Status: Outpatient Bone Drier:Height: 187.96 cm Nurse: Rere Guerrero RN,CVRN-BCWeight: 113.40 kg Electrical Appliance Mechanic: Zainab Preciado RDCSBSA: 2.39 m2 Technologist: Trinity Quintana: 32.10 kg/m2 Additional Staff:Age: 53 years cc report to:Patient Location: [facility] cc report to: Melquiades Carson Type: Cardiac Stress TestDiagnosis/ICD: R94.31-Abnormal electrocardiogram [ECG] [EKG]Indication: Hyperlipid, family hx CAD and Abnormal EKGProcedure/CPT: Stress Test Interpretation-[id number]; Stress Test Supervision-[id number];Stre ss Echo-[id number] Risk: Low: Patient has a low risk for sustaining a fall; enviromental safety interventions in place.Study Details: Correct procedure and correct patient verified verbally and withID Band checked.Patient History: Hyperlipidemia and family history of coronary artery disease. Coronary Artery Calcium Score 19.7.Allergies: None.Patient Performance: The patient exercised to stage IV on a Thiago protocol for 12 minutes and 00 seconds, achieving 12.5 METS. The peak heart rate achieved was 155 bpm, which was 93 % of the age predicted target heart rate of 167 bpm. The resting blood pressure was 142/84 mmHg with a heart rate of 50 bpm. The standing blood pressure was 122/66 mmHg with a heart rate of 66 bpm. The patient's functional capacity was above average. The patient developed no symptoms during the stress exam. The blood pressure response was hypertensive. The test was terminated due to: MPHR >85% and completed lab protocol. Patient has met the discharge criteria and is discharged to home.Baseline ECG: Resting ECG showed sinus bradycardia with normal tracing.Stress ECG: Stress ECG showed sinus tachycardia, with no abnormal findings. No ST changes.Stress Stage Data:+---+------+----- --+ + ----+ +\F\H R \F\Sys BP\F\Cleaning BP\F\RPE \F\METS\F\Comments \F\+---+------+------- + +-- --+ +\F\50 \F\142 \F\84 \F\ \F\ \F\ \F\+---+------+------- + +-- --+ +\F\66 \F\122 \F\66 \F\ \F\ \F\ \F\+---+------+------- + +-- --+ +\F\ \F\ \F\ \F\ \F\ \F\ \F\+---+------+------- + +-- --+ +\F\82 \F\132 \F\70 \F\6=Very, very light\F\4.9 \F\0300 minutes\F\+---+------+ -------+ ----+----+ +\F\97 \F\140 \F\68 \F\10=Very light \F\7.4 \F\0600 minutes\F\+---+------+ -------+ ----+----+ +\F\125\F\164 \F\70 \F\13=Somewhat hard \F\10 \F\0900 minutes\F\+---+------+ -------+ ----+----+ +\F\155\F\ \F\ \F\15=Hard \F\12.5\F\1200 minutes\F\+---+------+ -------+ ----+----+ +Recovery ECG: Recovery ECG showed normal sinus rhythm, with rare PVCs. The heart rate recovery was normal.+ +- --+------+-------+---- --------+\F\ \F\HR \F\Sys BP\F\Cleaning BP\F\Comments \F\+ +---+- -----+-------+-------- ----+\F\Recovery I \F\122\F\200 \F\68 \F\0100 minute \F\+ +---+- -----+-------+-------- ----+\F\Recovery II \F\85 \F\196 \F\70 \F\0200 minutes\F\+ -+---+------+-------+- +\F\Recover y III\F\80 \F\160 \F\80 \F\0400 minutes\F\+ -+---+------+-------+- +\F\Recover y IV \F\74 \F\148 \F\76 \F\0600 minutes\F\+ -+---+------+-------+- +Baseline Echo: Definity used as a contrast agent for endocardial border definition. Total contrast used for this procedure was 2 mL via IV push. The resting baseline ejection fraction was estimated at 55 to 60%. There are no regional wall motion abnormalities at baseline.Peak Dose Echo: The left ventricular internal cavity size at peak dose is decreased. At peak stress, the global LV systolic function is increased.Stress Echo: There are no stress induced regional wall motion abnormalities. The ejection fraction is approximately 60 to 65% at peak stress.LV Wall Scoring:Stage: All segments are normal.RestStage: All segments are normal.3Summary:1. The resting ejection fraction was estimated at 55 to 60% with a peak exercise ejection fraction estimated at 60 to 65%.2. No clinical, echocardiographic or electrocardiographic evidence for ischemia at a maximal workload.3. No ischemia by ECG at max workload.4. Normal Stress Test.5. The adequate level of stress was achieved.[id number] Robert Cheng MDElectronically signed on 06/01/2019 at 4:56:00 PM Final -[facility] Work Phone: Otheron 05-30-2019 Interpreted by: SONA05/30/19 11:45MRN: [id number] Name: KEVIN ODOM STUDY:CT CARDIAC SCORING; 05/30/2019 11:05 am INDICATION:hyperlipide parisa. COMPARISON:None. ORDERING CLINICIAN:MELQUIADES JOLLEY TECHNIQUE:Using prospective ECG gating, CT scan of the coronary arteries wasperformed without intravenous contrast. Coronary calcium scoring wasperformed according to the method of Agatston. FINDINGS:The score and distribution of calcium in the coronary arteries is asfollows: LM 0,LAD 19.7,LCx 0,RCA 0, Total 19.7 The visualized mid/lower ascending thoracic aorta is borderlinedilated measuring 3.9 cm in diameter. The heart is normal in size. Nopericardial effusion is present. No gross evidence of mediastinal or hilar lymphadenopathy or massesis identified. The visualized segments of the lungs are normallyexpanded. There is small solid noncalcified pulmonary nodule seenalong the left major fissure as on axial image 36 of 50, mostconsistent with a prominent intrapulmonary lymph node, a benignfinding. The visualized subdiaphragmatic structures appear intact. IMPRESSION:1. Coronary artery calcium score of 19.7*.2. Borderline dilated ascending thoracic aorta measuring up to 3.[address]/MR angiogram of chest may be obtained toensure stability. *Coronary Artery Calcium Gated and Nongated Agatston scoreScore Risk0 Very low1-99 Mildly [id number] Moderately increased>300 Moderate to severely increased Gayatri et al. JCCT 2016 (http://dx.doi.org/10. 1016/j.jcct.2016.11.00 3) DUTTA 10-Year CHD Risk with Coronary Artery Calcification can becalcuated using link below [email or web address]-[email or web address] .[email or web address]/[email or web address]/[email or web address] iskScore/RiskScore.asp x Romina romero al. JACC 2014 (http://dx.doi.org/10. 1016/j.jacc.2015.08.03 5)Electronically signed by: SONA 05/30/19 11:45 Normal [facility] Work Phone: Comment on above: ORDER REVISED TO A T H CT CARDIAC SCORING BY RADIOLOGIST IO UA (automated w/ microsco py)on 05-25-2019 Protein (U) [Mass/Vol] Negative Negative [facility] Work Phone: IO UA (automated w/ microscopy) 5.5 5.0-8.0 [facility] Work Phone: IO UA (automated w/ microscopy) Negative [facility] Work Phone: IO UA (automated w/ microscopy) 1.025 1.000-1.030 [facility] Work Phone: IO UA (automated w/ microscopy) Normal (0.2-1.0 mg/dl) Normal [facility] Work Phone: Complete Blood Count + Diffe rentialon 05-19-2019 Basophils (Bld) [#/Vol] 0.03 {x10E9/L} See Below [facility] Work Phone: Comment on above: Reference Range: 0.0 0 - 0.10 Basophils/100 WBC (Bld) 0.6 % 0.0 - 2.0 [facility] Work Phone: Eosinophils (Bld) [#/Vol] 0.07 {x10E9/L} See Below [facility] Work Phone: Comment on above: Reference Range: 0.0 0 - 0.70 Eosinophils/100 WBC (Bld) 1.4 % 0.0 - 6.0 [facility] Work Phone: Erythrocyte distribution width (RBC) [Ratio] 12.4 % See Below [facility] Work Phone: Comment on above: Reference Range: 11. 5 - 14.5 Hematocrit (Bld) [Volume fraction] 45.6 % See Below [facility] Work Phone: Comment on above: Reference Range: 41. 0 - 52.0 Hemoglobin (Bld) [Mass/Vol] 15.1 g/dL See Below [facility] Work Phone: Comment on above: Reference Range: 13. 5 - 17.5 Lymphocytes (Bld) [#/Vol] 2.25 {x10E9/L} See Below [facility] Work Phone: Comment on above: Reference Range: 1.2 0 - 4.80 Lymphocytes/100 WBC (Bld) 43.4 % See Below [facility] Work Phone: Comment on above: Reference Range: 13. 0 - 44.0 MCHC (RBC) [Mass/Vol] 33.1 g/dL See Below [facility] Work Phone: Comment on above: Reference Range: 32. 0 - 36.0 MCV (RBC) [Entitic vol] 93 fL 80 - 100 [facility] Work Phone: Monocytes (Bld) [#/Vol] 0.53 {x10E9/L} See Below [facility] Work Phone: Comment on above: Reference Range: 0.1 0 - 1.00 Monocytes/100 WBC (Bld) 10.2 % 2.0 - 10.0 [facility] Work Phone: Neutrophils (Bld) [#/Vol] 2.29 {x10E9/L} See Below [facility] Work Phone: Comment on above: Reference Range: 1.2 0 - 7.70 Neutrophils/100 WBC (Bld) 44.2 % See Below [facility] Work Phone: Comment on above: Reference Range: 40. 0 - 80.0 Platelets (Bld) [#/Vol] 211 {x10E9/L} 150 - 450 [facility] Work Phone: RBC (Bld) [#/Vol] 4.91 {x10E12/L} See Below [facility] Work Phone: Comment on above: Reference Range: 4.5 0 - 5.90 WBC (Bld) [#/Vol] 5.2 {x10E9/L} 4.4 - 11.3 [facility] Work Phone: WBC (Bld) [#/Vol] 0.0 {/100_WBC} 0.0-0.0 [facility] Work Phone: Complete Blood Count + Differential 0.2 % 0.0 - 0.9 [facility] Work Phone: Comment on above: Percent differential counts (%) should be interpreted in the context of the absolute cell counts (cells/L). Lipid Panelon 05-19-2019 Cholesterol [Mass/Vol] 247 mg/dL above hig h threshold 0 - 199 [facility] Work Phone: Comment on above: . AGE DESIRABLE BORD KAVON HIGH HIGH 0-19 Y 0 - 169 170 - 199 >/= 200 20-24 Y 0 - 189 190 - 224 >/= 225 >24 Y 0 - 199 200 - 239 >/= 240 All ranges are based on fasting samples. Specific therapeutic targets will vary based on patient-specific cardiac risk.. Pediatric guidelines reference:Pediatrics 2011, 128(S5). Adult guidelines reference: NCEP ATPIII Guidelines, CATHY 2001, 258:2486-97. Venipuncture immediately after or during the administration of Metamizole may lead to falsely low results. Testing should be performed immediately prior to Metamizole dosing. Cholesterol in HDL [Mass/Vol] 37.8 mg/dL Abnormal [facility] Work Phone: Comment on above: . AGE VERY LOW LOW N ORMAL HIGH 0-19 Y < 35 < 40 40-45 ---- 20-24 Y ---- < 40 >45 ---- >24 Y ---- < 40 40-60 >60. Cholesterol in LDL [Mass/Vol] 171 mg/dL above high threshold 0 - 99 [facility] Work Phone: Comment on above: . NEAR BORD AGE DALY RABLE OPTIMAL HIGH HIGH VERY HIGH 0-19 Y 0 - 109 --- 110-129 >/= 130 ---- 20-24 Y 0 - 119 --- 120-159 >/= 160 ---- >24 Y 0 - 99 100-129 130-159 160-189 >/=190. Cholesterol.total/Chol esterol in HDL [Mass ratio] 6.5 {ratio} Abnormal [facility] Work Phone: Comment on above: REF VALUESDESIRABLE < 3.4HIGH RISK > 5.0 Triglyceride [Mass/Vol] 193 mg/dL above high threshold 0 - 149 [facility] Work Phone: Comment on above: . AGE DESIRABLE BORD KAVON HIGH HIGH VERY HIGH 0 D-90 D 19 - 174 ---- ---- ----91 D- 9 Y 0 - 74 75 - 99 >/= 100 ---- 10-19 Y 0 - 89 90 - 129 >/= 130 ---- 20-24 Y 0 - 114 115 - 149 >/= 150 ---- >24 Y 0 - 149 150 - 199 200- 499 >/= 500. Venipuncture immediately after or during the administration of Metamizole may lead to falsely low results. Testing should be performed immediately prior to Metamizole dosing. Lipid Panel 39 mg/dL 0 - 40 [facility] Work Phone: Metabolic Panelon 05-19-2019 ALP [Catalytic activity/Vol] 70 U/L 33 - 120 [facility] Work Phone: Anion gap [Moles/Vol] 12 mmol/L 10 - 20 [facility] Work Phone: Bilirubin [Mass/Vol] 0.9 mg/dL 0.0 - 1.2 [facility] Work Phone: Calcium [Mass/Vol] 9.5 mg/dL 8.6 - 10.6 [facility] Work Phone: Chloride [Moles/Vol] 102 mmol/L 98 - 107 [facility] Work Phone: CO2 [Moles/Vol] 28 mmol/L 21 - 32 [facility] Work Phone: Creatinine [Mass/Vol] 0.89 mg/dL See Below [facility] Work Phone: Comment on above: Reference Range: 0.5 0 - 1.30 Glucose [Mass/Vol] 93 mg/dL 74 - 99 [facility] Work Phone: Potassium [Moles/Vol] 4.2 mmol/L 3.5 - 5.3 [facility] Work Phone: Protein [Mass/Vol] 6.7 g/dL 6.4 - 8.2 [facility] Work Phone: Sodium [Moles/Vol] 138 mmol/L 136 - 145 [facility] Work Phone: Urea nitrogen [Mass/Vol] 14 mg/dL 6 - 23 [facility] Work Phone: Otheron 05-19-2019 Albumin BCP dye [Mass/Vol] 4.3 g/dL 3.4 - 5.0 [facility] Work Phone: ALT With P-5'-P [Catalytic activity/Vol] 29 U/L 10 - 52 [facility] Work Phone: Comment on above: Patients treated wit h Sulfasalazine may generate falsely decreased results for ALT. AST With P-5'-P [Catalytic activity/Vol] 23 U/L 9 - 39 [facility] Work Phone: >60 >60 [facility] Work Phone: Comment on above: CALCULATIONS OF ADY MATED GFR ARE PERFORMED USING THE MDRD STUDY EQUATION FOR THE IDMS-TRACEABLE CREATININE METHODS. CLIN CHEM 2007;53:766-72 Prostate Spec.Ag, Screenon 1 Prostate specific Ag [Mass/Vol] 0.70 ng/mL See Below [facility] Work Phone: Comment on above: Reference Range: 0.0 0 - 4.00The FDA requires that the method used for PSA assay be reported to the physician. Values obtained with different assay methods must not be used interchangeably. This test was performed at [facility] using the [facility] PSA method, which is a sandwich immunoassay using chemiluminescence for quantitation. The assay is approvedfor measurement of prostate-specific antigen (PSA) in serum and may be used in conjunction with a digital rectalexamination in men 50 years and older as an aid in detection of prostate cancer. 9-Nucla-fbeaqxlwz inhibitors (e.g. Proscar, Finasteride, Avodart, Dutasteride and Nae) for the treatment of BPH have been shown to lower PSA levels by an average of 50% after 6 months of treatment. Thyroidon 05-19-2019 TSH Qn 2.44 {mIU/L} See Below [facility] Work Phone: Comment on above: Reference Range: 0.4 4 - 3.98 TSH testing is performed using different testing methodology at [facility] than at other [place] [facility]. Direct result comparisons should only be made within the same method.. Patients receiving more than 5 mg/day of biotin may have interference in test results. A sample should be taken no sooner than eight hours after previous dose. Contact [phone] for additional information. Urinalysison 05-19-2019 Appearance (U) CLEAR CLEAR [facility] Work Phone: Color (U) YELLOW See Below [facility] Work Phone: Comment on above: Reference Range: STR AW,YELLOW Glucose Ql (U) Negative NEGATIVE [facility] Work Phone: Ketones Ql (U) Negative NEGATIVE [facility] Work Phone: Leukocyte esterase Test strip Ql (U) Negative NEGATIVE [facility] Work Phone: pH (U) 6.0 [pH] 5.0 - 8.0 [facility] Work Phone: Protein (U) [Mass/Vol] Negative NEGATIVE [facility] Work Phone: RBC (U) [#/Vol] Negative NEGATIVE [facility] Work Phone: Specific gravity (U) [Rel density] 1.019 See Below [facility] Work Phone: Comment on above: Reference Range: 1.0 05 - 1.035 Urinalysis <2.0 0.0 - 1.9 [facility] Work Phone: Urinalysis Negative NEGATIVE [facility] Work Phone: Otheron 01-23-2019 Interpreted by: PILO SIMONS01/23/19 17:15MRN: [id number] Name: KEVIN ODOM STUDY:DUPLEX LOWER EXTREMITY VEINS, RIGHT, UNILATERAL; 01/23/2019 5:13 pm INDICATION:right leg swelling, superficial thrombosis of right lower extremity. COMPARISON:Right lower extremity venous duplex, 01/17/2019. ORDERING CLINICIAN:MELQUIADES JOLLEY TECHNIQUE:Real time ultrasound evaluation was performed of the right lowerextremity veins. Manual compression was applied. Color doppler andspectral doppler with augmentation were performed. FINDINGS: RIGHT:The right common femoral vein, femoral/greater saphenous junction,proximal femoral vein, mid femoral vein, distal femoral vein, andpopliteal vein are normal in appearance, patent on color doppler, andfully compressible. Spectral doppler evaluation demonstrates normalvenous waveforms and normal augmentation. The visualized portions ofthe posterior tibial and peroneal veins are patent on color dopplerand fully compressible. Again seen is occlusive thrombus within the lesser saphenous vein inthe posterior right calf at the area of pain. Limited evaluation of the contralateral left common femoral vein isunremarkable. IMPRESSION:1. Superficial thrombophlebitis with occlusive thrombus again seen inthe lesser saphenous vein is in the posterior calf at the area ofpain.2. No evidence of deep venous thrombosis in the right lower extremity.Electronical ly signed by: PILO SIMONS 01/23/19 17:15 Normal [facility] Work Phone: Otheron 01-17-2019 Interpreted by: ANJALI FRANKS01/17/19 13:52MRN: [id number] Name: KEVIN ODOM STUDY:DUPLEX LOWER EXTREMITY VEINS, RIGHT, UNILATERAL; 01/17/2019 1:50 pm INDICATION:rt leg pain. COMPARISON:None. ORDERING CLINICIAN:DARIEL NICHOLSON TECHNIQUE:Grayscale, color and spectral Doppler ultrasound evaluation of theright lower extremity deep venous system. FINDINGS: RIGHT: There is normal compressibility of the common femoral(including saphenofemoral junction), deep femoral, femoral (includingproximal, mid, and distal aspects), popliteal, posterior tibial andperoneal veins. There is a normal, spontaneous and phasic venousspectral Doppler waveform throughout the lower extremity. There is noncompressibility, thrombus, and vessel enlargementinvolving a short segment of the lesser saphenous vein in theposterior right calf in an area of reported symptoms. No deep venousextension is demonstrated. LEFT: There is normal, symmetric venous spectral Doppler waveform inthe common femoral vein. IMPRESSION:No acute femoropopliteal DVT in the right lower extremity. If thereremains clinical concern for acute lower extremity DVT then afollow-up evaluation can be obtained in 5-7 days for furtherassessment. There is acute superficial venous thrombosis involving a shortsegment of the lesser saphenous vein in the symptomatic area of theright calf.Electronically signed by: LIONEL FRANKS 01/17/19 13:52 Normal [facility] Work Phone: Comment on above: ORDER REVISED TO A D UPLEX LOWER EXTREMITY VEINS, RIGHT, UNILATERAL BY RADIOLOGIST Jyoti 06-18-2010 CONVERTED CLINICAL HISTORY OPERATIVE PROCEDURE: Ventral hernia repair CLINICAL INFORMATION: Hernia [facility] CONVERTED ELECTRONIC SIGNATURE SHAHANA ZAMARRIPA M.D., PATHOLOGIST (Electronic signature on file) Final Signed Out: 06/18/2010 15:27 [facility] CONVERTED FINAL DIAGNOSIS FINAL DIAGNOSIS: VENTRAL HERNIA, EXCISION - BENIGN FIBROADIPOSE TISSUE CONSISTENT WITH HERNIA SAC. SPECIMEN: HERNIA SAC [facility] CONVERTED GROSS DESCRIPTION GROSS DESCRIPTION: Hernia sac & contents The specimen is received in a container labeled hernia sac and contents. Received are portions of dense, red-valente, fibrous tissue measuring 4 x 3.5 x 2.5 cm. Attached are portions of normal appearing adipose tissue. A sales promotion representative sample is submitted in a single cassette. SDS/SMS/gpl MICROSCOPIC DESCRIPTION: Slides reviewed. PSB/lrs [facility] CONVERTED ORDERING PROVIDER Ordering Provider: MAVERICK MCGOVERN [facility] Vital Signs Date Time Vital Sign Value Performing Clinician Facility 02-28-2025 09:55-0400 Body height 188 cm Hunter Baig MD Work Phone: [facility] 02-28-2025 09:55-0400 Body mass index (BMI) [Ratio] 34.54 kg/m2 Hunter Baig MD Work Phone: [facility] 02-28-2025 09:55-0400 Body temperature 97.5 [degF] Hunter Baig MD Work Phone: [facility] 02-28-2025 09:55-0400 Body weight 122.02 kg Hunter Baig MD Work Phone: [facility] 02-28-2025 09:55-0400 Diastolic blood pressure 80 mm[Hg] Hunter Baig MD Work Phone: [facility] 02-28-2025 09:55-0400 Heart rate 50 /min Hunter Baig MD Work Phone: [facility] 02-28-2025 09:55-0400 Systolic blood pressure 135 mm[Hg] Hunter Baig MD Work Phone: [facility] 01-18-2025 15:59-0400 Body height 188 cm Maynor Malone MD Work Phone: [facility] 01-18-2025 15:59-0400 Body mass index (BMI) [Ratio] 33.9 kg/m2 Maynor Malone MD Work Phone: [facility] 01-18-2025 15:59-0400 Body weight 119.75 kg Maynor Malone MD Work Phone: [facility] 01-18-2025 15:59-0400 Diastolic blood pressure 67 mm[Hg] Maynor Malone MD Work Phone: [facility] 01-18-2025 15:59-0400 Heart rate 53 /min Maynor Malone MD Work Phone: [facility] 01-18-2025 15:59-0400 SaO2% (BldA) [Mass fraction] 98 % Maynor Malone MD Work Phone: [facility] 01-18-2025 15:59-0400 Systolic blood pressure 133 mm[Hg] Maynor Malone MD Work Phone: [facility] 01-02-2025 10:48-0400 Body temperature 97.7 [degF] Maynor Malone MD Work Phone: [facility] 01-02-2025 10:48-0400 Diastolic blood pressure 88 mm[Hg] Maynor Malone MD Work Phone: [facility] 01-02-2025 10:48-0400 Heart rate 86 /min Maynor Malone MD Work Phone: [facility] 01-02-2025 10:48-0400 Respiratory rate 16 /min Maynor Malone MD Work Phone: [facility] 01-02-2025 10:48-0400 SaO2% (BldA) [Mass fraction] 99 % Maynor Malone MD Work Phone: [facility] 01-02-2025 10:48-0400 Systolic blood pressure 119 mm[Hg] Maynor Malone MD Work Phone: [facility] 01-02-2025 10:40-0400 Body height 188 cm Maynor Malone MD Work Phone: [facility] 01-02-2025 10:40-0400 Body mass index (BMI) [Ratio] 33.8 kg/m2 Maynor Malone MD Work Phone: [facility] 01-02-2025 10:40-0400 Body weight 119.4 kg Maynor Malone MD Work Phone: [facility] 11-16-2024 15:06-0400 Body height 188 cm Maynor Malone MD Work Phone: [facility] 11-16-2024 15:06-0400 Body mass index (BMI) [Ratio] 35.41 kg/m2 Maynor Malone MD Work Phone: [facility] 11-16-2024 15:06-0400 Body weight 125.1 kg Maynor Malone MD Work Phone: [facility] 11-16-2024 15:06-0400 Diastolic blood pressure 73 mm[Hg] Maynor Malone MD Work Phone: [facility] 11-16-2024 15:06-0400 Heart rate 76 /min Maynor Malone MD Work Phone: [facility] 11-16-2024 15:06-0400 SaO2% (BldA) [Mass fraction] 96 % Maynor Malone MD Work Phone: [facility] 11-16-2024 15:06-0400 Systolic blood pressure 128 mm[Hg] Maynor Malone MD Work Phone: [facility] 11-16-2024 07:54-0400 Body height 186.7 cm Melquiades Kromalic DO Work Phone: [facility] 11-16-2024 07:54-0400 Body mass index (BMI) [Ratio] 35.53 kg/m2 Melquiades Kromalic DO Work Phone: [facility] 11-16-2024 07:54-0400 Body temperature 97.5 [degF] Melquiades Kromalic DO Work Phone: [facility] 11-16-2024 07:54-0400 Body weight 123.83 kg Melquiades Kromalic DO Work Phone: [facility] 11-16-2024 07:54-0400 Diastolic blood pressure 72 mm[Hg] Melquiades Kromalic DO Work Phone: [facility] 11-16-2024 07:54-0400 Heart rate 87 /min Melquiades Kromalic DO Work Phone: [facility] 11-16-2024 07:54-0400 SaO2% (BldA) [Mass fraction] 95 % Melquiades Sagastumecarline Work Phone: [facility] 11-16-2024 07:54-0400 Systolic blood pressure 104 mm[Hg] Melquiades Sagastumecarline Work Phone: [facility] 10-14-2024 08:52-0400 Body mass index (BMI) [Ratio] 36.08 kg/m2 Hunter Peoples DO Work Phone: [facility] 10-14-2024 08:52-0400 Body temperature 98.1 [degF] Hunter Peoples DO Work Phone: [facility] 10-14-2024 08:52-0400 Body weight 127.46 kg Hunter Peoples DO Work Phone: [facility] 10-14-2024 08:52-0400 Diastolic blood pressure 75 mm[Hg] Hunter Peoples DO Work Phone: [facility] 10-14-2024 08:52-0400 Heart rate 70 /min Hunter Peoples DO Work Phone: [facility] 10-14-2024 08:52-0400 SaO2% (BldA) [Mass fraction] 94 % Hunter Peoples DO Work Phone: [facility] 10-14-2024 08:52-0400 Systolic blood pressure 143 mm[Hg] Hunter Ryderaditya Work Phone: [facility] 08-09-2024 11:26-0500 Body height 188 cm Hunter Baig MD Work Phone: [facility] 08-09-2024 11:26-0500 Body mass index (BMI) [Ratio] 36.85 kg/m2 Hunter Baig MD Work Phone: [facility] 08-09-2024 11:26-0500 Body temperature 97.9 [degF] Hunter Baig MD Work Phone: [facility] 01-15-2025 11:26-0500 Body weight 130.18 kg Hunter Baig MD Work Phone: [facility] 08-09-2024 11:26-0500 Diastolic blood pressure 84 mm[Hg] Hunter Baig MD Work Phone: [facility] 08-09-2024 11:26-0500 Heart rate 56 /min Hunter Baig MD Work Phone: [facility] 08-09-2024 11:26-0500 Systolic blood pressure 148 mm[Hg] Hunter Baig MD Work Phone: [facility] 02-01-2024 09:52-0400 Body height 188 cm Alexander Gamboa MD Work Phone: [facility] 02-01-2024 09:52-0400 Body mass index (BMI) [Ratio] 36.09 kg/m2 Alexander Gamboa MD Work Phone: [facility] 02-01-2024 09:52-0400 Body weight 127.51 kg Alexander Gamboa MD Work Phone: [facility] 02-01-2024 09:52-0400 Diastolic blood pressure 90 mm[Hg] Alexander Gamboa MD Work Phone: [facility] 02-01-2024 09:52-0400 Heart rate 56 /min Alexander Gamboa MD Work Phone: [facility] 02-01-2024 09:52-0400 Respiratory rate 16 /min Alexander Gamboa MD Work Phone: [facility] 02-01-2024 09:52-0400 Systolic blood pressure 165 mm[Hg] Alexander Gamboa MD Work Phone: [facility] 08-10-2023 12:07-0500 Body height 188 cm Alexander Gamboa MD Work Phone: [facility] 08-10-2023 12:07-0500 Body mass index (BMI) [Ratio] 35.56 kg/m2 Alexander Gamboa MD Work Phone: [facility] 08-10-2023 12:07-0500 Body weight 125.65 kg Alexander Gamboa MD Work Phone: [facility] 08-10-2023 12:07-0500 Diastolic blood pressure 79 mm[Hg] Alexander Gamboa MD Work Phone: [facility] 08-10-2023 12:07-0500 Heart rate 53 /min Alexander Gamboa MD Work Phone: [facility] 08-10-2023 12:07-0500 Respiratory rate 16 /min Alexander Gamboa MD Work Phone: [facility] 08-10-2023 12:07-0500 Systolic blood pressure 134 mm[Hg] Alexander Gamboa MD Work Phone: [facility] 12-01-2022 08:50-0400 Body height 185.42 cm Melquiades Jolley Work Phone: [id number] [address] Work Phone: 12-01-2022 08:50-0400 Body mass index (BMI) [Ratio] 36.28 kg/m2 Melquiades Jolley Work Phone: [id number] [address] Work Phone: 12-01-2022 08:50-0400 Body surface area Derived from formula 2.46 m2 Melquiades Jolley Work Phone: [id number] [address] Work Phone: 12-01-2022 08:50-0400 Body temperature 96.1 [degF] Melquiades Jolley Work Phone: [id number][facility]Yqmppdj[facility]Zrnqfc[facility] [address] Work Phone: 12-01-2022 08:50-0400 Body weight 124.74 kg Melquiades Jolley Work Phone: [id number]ag[facility] [address] Work Phone: 12-01-2022 08:50-0400 Diastolic blood pressure 85 mm[Hg] Melquiades Jolley Work Phone: [id number] 2100 Work Phone: 12-01-2022 08:50-0400 Heart rate 52 /min Melquiades Jolley Work Phone: [id number]-Sqbxcsc 2100 Work Phone: 12-01-2022 08:50-0400 Systolic blood pressure 146 mm[Hg] Melquiades Jolley Work Phone: [id number]-Jnpbtit-Fescglq 2100 Work Phone: 12-01-2022 08:50-0400 0 1 Melquiades Jolley Work Phone: [id number]-Kecfcdz 2100 Work Phone: Comment on above: [employer] 08-10-2019 11:44-0500 Body mass index (BMI) [Ratio] 34.17 kg/m2 Melquiades Jolley DO [facility] Work Phone: 08-10-2019 11:44-0500 Body surface area Derived from formula 2.4 m2 Melquiades Sagastumeomalic DO [facility] Work Phone: 08-10-2019 11:44-0500 Body weight 117.48 kg Melquiades Melchoric DO [facility] Work Phone: 08-10-2019 11:44-0500 Diastolic blood pressure 80 mm[Hg] Melquiades Melchoric DO [facility] Work Phone: 08-10-2019 11:44-0500 Heart rate 54 /min Melquiades Melchoric DO [facility] Work Phone: 08-10-2019 11:44-0500 Systolic blood pressure 122 mm[Hg] Melquiades Melchoric DO [facility] Work Phone: 06-10-2019 10:05-0500 BMI (Body Mass Index) 33.64 kg/m2 Dariel Nicholson [facility] Work Phone: 06-10-2019 10:05-0500 Body Temperature 97.6 [degF] Dariel Nicholson [facility] Work Phone: 06-10-2019 10:05-0500 Body weight 115.67 kg Dariel Nicholson [facility] Work Phone: 06-10-2019 10:05-0500 BP Diastolic 82 mm[Hg] Dariel Nicholson [facility] Work Phone: 06-10-2019 10:05-0500 BP Systolic 138 mm[Hg] Dariel Nicholson [facility] Work Phone: 06-10-2019 10:05-0500 BSA (Body Surface Area) 2.39 m2 Dariel Nicholson [facility] Work Phone: 06-10-2019 10:05-0500 Pulse (Heart Rate) 60 /min [facility] Work Phone: 05-25-2019 10:05-0400 BMI (Body Mass Index) 33.51 kg/m2 Melquiades Jolley [facility] Work Phone: 05-25-2019 10:05-0400 Body weight 115.21 kg Melquiades Jolley [facility] Work Phone: 05-25-2019 10:05-0400 BP Diastolic 80 mm[Hg] Melquiades Jolley [facility] Work Phone: 05-25-2019 10:05-0400 BP Systolic 118 mm[Hg] Melquiades Kromalic [facility] Work Phone: 05-25-2019 10:05-0400 BSA (Body Surface Area) 2.38 m2 Melquiades Sagastumeomaldesire [facility] Work Phone: 05-25-2019 10:05-0400 Height 185.42 cm Melquiades Sagastumeomalic [facility] Work Phone: 05-25-2019 10:05-0400 Pulse (Heart Rate) 60 /min Melquiades Sagastumeomaldesire [facility] Work Phone: 01-23-2019 16:48-0400 BMI (Body Mass Index) 34.79 kg/m2 Melquiades Sagastumeomaldesire [facility] Work Phone: 01-23-2019 16:48-0400 Body weight 122.93 kg Melquiades Sagastumeomaldesire [facility] Work Phone: 01-23-2019 16:48-0400 BP Diastolic 84 mm[Hg] Melquiades Sagastumeomaldesire [facility] Work Phone: 01-23-2019 16:48-0400 BP Systolic 144 mm[Hg] Melquiades Sagastumeomalic [facility] Work Phone: 01-23-2019 16:48-0400 BSA (Body Surface Area) 2.47 m2 Melquiades Sagastumeomaldesire [facility] Work Phone: 01-23-2019 16:48-0400 Pulse (Heart Rate) 78 /min Melquiades Sagastumeomalic [facility] Work Phone: 01-17-2019 13:28-0400 BMI (Body Mass Index) 34.41 kg/m2 Dariel Nicholson [facility] Work Phone: 01-17-2019 13:28-0400 Body Temperature 97 [degF] Dariel Nicholson [facility] Work Phone: 01-17-2019 13:28-0400 Body weight 121.56 kg Dariel Nicholson [facility] Work Phone: 01-17-2019 13:28-0400 BP Diastolic 72 mm[Hg] Dariel Nicholson [facility] Work Phone: 01-17-2019 13:28-0400 BP Systolic 140 mm[Hg] Dariel Nicholson [facility] Work Phone: 01-17-2019 13:28-0400 BSA (Body Surface Area) 2.46 m2 Dariel Nicholson [facility] Work Phone: 01-17-2019 13:28-0400 Pulse (Heart Rate) 60 /min Dariel Nicholson [facility] Work Phone: 11-30-2018 11:15-0400 BMI (Body Mass Index) 35.33 kg/m2 Dariel Nicholson [facility] Work Phone: 11-30-2018 11:15-0400 Body Temperature 97.4 [degF] Dariel Nicholson [facility] Work Phone: 11-30-2018 11:15-0400 BP Diastolic 80 mm[Hg] Dariel Nicholson [facility] Work Phone: 11-30-2018 11:15-0400 BP Systolic 140 mm[Hg] Dariel Nicholson [facility] Work Phone: 11-30-2018 11:15-0400 BSA (Body Surface Area) 2.49 m2 Dariel Nicholson [facility] Work Phone: 11-30-2018 11:15-0400 Pulse (Heart Rate) 72 /min Galloshereenjaylan [facility] Work Phone: 11-30-2018 11:15-0400 Weight 124.83 kg Gallowisam Bharat [facility] Work Phone: NEGATED: Highlighted [id number] 08:14-0500 BMI (Body Mass Index) 32.21 kg/m2 Bel Gonzalo PERSONAL [employer]ES SALES EXECUTIVE [facility] Work Phone: NEGATED: Highlighted [id number] 08:14-0500 Body weight 113.4 kg Bel Gonzalo PERSONAL LINES SALES EXECUTIVE [facility] Work Phone: NEGATED: Highlighted [id number] 08:14-0500 Body weight 114 kg Bel Gonzalo PERSONAL LINES SALES EXECUTIVE [facility] Work Phone: NEGATED: Highlighted [id number] 08:14-0500 BP Diastolic 88 mm[Hg] Bel Gonzalo PERSONAL LINES SALES EXECUTIVE [facility] Work Phone: NEGATED: Highlighted [id number] 08:14-0500 BP Systolic 132 mm[Hg] Bel Gonzalo PERSONAL LINES SALES EXECUTIVE [facility] Work Phone: NEGATED: Highlighted [id number] 08:14-0500 Heart rate 2+ Bel Gonzalo PERSONAL LINES SALES EXECUTIVE [facility] Work Phone: NEGATED: Highlighted [id number] 08:14-0500 Height 187.96 cm Bel Gonzalo PERSONAL LINES SALES EXECUTIVE [facility] Work Phone: NEGATED: Highlighted [id number] 08:14-0500 Height 188 cm Bel Gonzalo PERSONAL LINES SALES EXECUTIVE [facility] Work Phone: NEGATED: Highlighted [id number] 08:14-0500 Pulse (Heart Rate) 60 /min Bel Sánchez LPN [facility] Work Phone: Encounters Encounter Date Encounter Type Care Provider Facility Start: 03-30-2025 ambulatory Melquiades Jolley Facility: [facility] Start: 03-23-2025 Encounter for preprocedural cardiovascular examination Dariel Hoff [facility] Start: 02-28-2025 End: 02-28-2025 Office outpatient visit 25 minutes Hunter Baig MD Work Phone: [facility] Comment on above: Primary cancer of re ctum (Multi) Start: 02-28-2025 End: 02-28-2025 ambulatory HUNTER BAIG [facility] Start: 01-18-2025 End: 01-18-2025 Office outpatient visit 25 minutes Maynor Malone MD Work Phone: [facility] Comment on above: Aneurysm of ascendin g aorta without rupture (Primary Dx); Paroxysmal atrial fibrillation (Multi); Coronary artery disease involving [place] coronary artery of [place] heart without angina pectoris; Mixed hyperlipidemia; Leg swelling Start: 01-18-2025 End: 01-18-2025 ambulatory [facility] Start: 01-08-2025 End: 01-08-2025 ambulatory [facility] Start: 01-03-2025 End: 01-03-[address] Melquiades Jolley MD Work Phone: [facility] Work Phone: Start: 01-03-2025 End: 01-03-[address] Antione Wilson MD -Laboratory Work Phone: Start: 01-02-2025 End: 01-03-2025 ambulatory [facility] Start: 01-02-2025 End: 01-03-2025 ambulatory [facility] Start: 01-02-2025 End: 01-02-2025 Subsequent hospital visit by physician Maynor Malone MD Work Phone: [facility] Comment on above: A-fib (Multi) Start: 11-30-2024 End: 11-30-2024 Subsequent hospital visit by physician Mckinley Alvarez [facility] Comment on above: Paroxysmal atrial fi brillation (Multi); Mixed hyperlipidemia Leg swelling; Phlebitis; Localized edema Start: 11-30-2024 End: 11-30-2024 ambulatory [facility] Start: 11-16-2024 End: 11-16-2024 Office outpatient new 60 minutes Maynor Malone MD Work Phone: [facility] Comment on above: Paroxysmal atrial fi brillation (Multi) (Primary Dx); Mixed hyperlipidemia; Aneurysm of ascending aorta without rupture; Coronary artery disease involving [place] coronary artery of [place] heart without angina pectoris; Snoring Start: 11-16-2024 End: 11-16-2024 Patient encounter status Melquiades Jolley DO Work Phone: [facility] Work Phone: Start: 11-16-2024 End: 11-16-2024 Periodic preventive med est patient 40-64yrs Melquiades Jolley DO Work Phone: [facility] Comment on above: Routine adult health maintenance (Primary Dx); Leg swelling; Phlebitis; Atrial fibrillation, unspecified type (Multi); Hyperlipidemia, unspecified hyperlipidemia type; Abnormal EKG; Rectal cancer (Multi) Start: 11-16-2024 End: 11-16-[address] [facility] Start: 11-16-2024 End: 11-16-2024 Encounter for general adult medical examination without abnormal findings [facility] Start: 10-14-2024 End: 10-14-2024 ambulatory [facility] Start: 10-14-2024 End: 10-14-2024 Office outpatient visit 15 minutes Hunter Peoples DO Work Phone: [employer] [facility] Comment on above: Influenza A (Primary Dx); Body aches; Chills; Fatigue, unspecified type Start: 08-09-2024 End: 08-09-2024 ambulatory MELQUIADES JOLLEY [facility] Start: 08-09-2024 End: 08-09-2024 Office outpatient visit 40 minutes Hunetr Baig MD Work Phone: [facility] Comment on above: Rectal cancer (Multi ) (Primary Dx) Start: 08-09-2024 End: 08-09-2024 ambulatory HUNTER BAIG [facility] Start: 08-02-2024 End: 08-02-2024 Subsequent hospital visit by physician Chi [id number] [facility] Comment on above: Rectal cancer (Multi ) Start: 08-02-2024 End: 08-02-2024 ambulatory KELLY OBRIEN [facility] Start: 02-01-2024 End: 02-01-2024 Office outpatient visit 10 minutes Alexander Gamboa MD Work Phone: [facility] [place] Comment on above: History of rectal po lyps (Primary Dx) Start: 02-01-2024 End: 02-01-2024 ambulatory ALEXANDER GAMBOA [facility] Start: 08-10-2023 End: 08-10-2023 Office outpatient visit 10 minutes Alexander Gamboa MD Work Phone: [facility] [place] Comment on above: History of rectal po lyps (Primary Dx) Start: 07-06-2023 End: 07-06-2023 Office outpatient visit 15 minutes Robe Hernandez APRN-AUTOMATION CONTROLS ENGINEER Work Phone: [facility] Comment on above: COVID-19 (Primary Dx ) Start: 12-22-2022 Patient encounter procedure Melquiades Jolley Work Phone: [id number] Work Phone: Start: 12-14-2022 ambulatory Melquidaes Jolley Facility: [id number] Start: 12-01-2022 Office consultation new/estab patient 80 min Melquiades Jolley Work Phone: [id number] 2100 Work Phone: Start: 11-24-2022 Transcribe Orders Kendall brody MD Work Phone: [facility] Comment on above: Malignant neoplasm o f rectum (HCC) (Primary Dx) Start: 12-25-2019 Patient encounter procedure Melquiades Melchordesire [facility] Work Phone: Start: 08-25-2019 End: 08-25-2019 Patient encounter procedure Alexander Reyes MD Work Phone: [facility] Work Phone: Start: 08-10-2019 Patient encounter procedure Melquiades Ruizdesire KRAFT [facility] Work Phone: Start: 06-10-2019 Patient encounter procedure Dariel Nicholson [facility] Work Phone: Start: 06-01-2019 Patient encounter procedure Dariel Nicholson [facility] Work Phone: Start: 05-25-2019 Patient encounter procedure Melquiades Melchordesire [facility] Work Phone: Start: 01-23-2019 Patient encounter procedure Melquiades Jolley [facility] Work Phone: Start: 01-17-2019 Patient encounter procedure Dariel Nicholson [facility] Work Phone: Start: 11-30-2018 Patient encounter procedure Dariel Nicholson [facility] Work Phone: Start: 11-08-2017 Patient encounter procedure Dariel Nicholson [facility] Work Phone: Start: 08-20-2017 Patient encounter procedure Dariel Nicholson [facility] Work Phone: Start: 07-28-2017 Patient encounter procedure Dariel Nicholson [facility] Work Phone: Start: 07-05-2017 Patient encounter procedure Dariel Nicholson [facility] Work Phone: Start: 06-16-2010 End: 06-16-2010 Patient encounter procedure Maverick Mcgovern Work Phone: [facility] Start: 06-16-2010 Results Only Maverick Woodson Ma jhonatanchloe Work Phone: [facility] Procedures Date Procedure Procedure Detail Performing Clinician Start: 01-03-2025 Hepatitis C antibody measurement Dr. Melquiades Jolley MD Work Phone: Comment on above: Reactive: Presumptiv e evidence of antibodies to HCV. Follow CDC recommendations for supplemental testing.Non-Reactive: Antibodies to HCV were not detected; does not exclude the possibility of exposure to HCVReactive Results are presumptive evidence of antibodies to HCV. Follow CDC recommendations for supplemental testing.Order confirmation testing: HCV Quant by PCR testing - HCVPCR #[id number] Non Reactive: < 0.8 Equivocal: >/= 0.8 to < 1.0 Reactive: >/= 1.0The CDC requires that a reactive/equivocal HCV antibody result be sent out for confirmation. HCV Quant by PCR testing. Start: 01-03-2025 Vitamin D, 25-hydrox y measurement Dr. Melquiades Jolley MD Work Phone: Comment on above: Vitamin D StatusDefi ciency: <20 ng/mL (50nmol/L)Insufficiency: 20-30 ng/mL (50-75 nmol/L)Sufficiency: 30-100 ng/mL (75-250 nmol/L)Toxicity: >100 ng/mL (>250 nmol/L) Start: 01-02-2025 Cardiac catheterizat ion study Maynor Malone MD Work Phone: Start: 01-02-2025 Ecg routine ecg w/le ast 12 lds trcg only w/o i&r Maynor Malone MD Work Phone: Start: 11-16-2024 Ecg routine ecg w/le ast 12 lds w/i&r Melquiades Jolley DO Work Phone: Start: 11-07-2024 Lipid 1996 panel - S vance or Plasma Melquiades Sagastumecarline DO Work Phone: Start: 10-14-2024 Iaadiadoo influenza William adele Peoples DO Work Phone: Start: 08-09-2024 FLEXIBLE SIGMOIDOSCO PY IN CLINIC Hunter Baig MD Work Phone: Start: 08-10-2023 BIOPSY Alexander Patel MD Work Phone: Start: 10-16-2022 Colonoscopy Kendall Person MD Work Phone: Start: 08-25-2019 End: 08-25-2019 Blood pressure within normal parameters - no follow-up required Alexander Reyes MD Work Phone: Start: 08-25-2019 End: 08-25-2019 BMI documented as above normal parameters - follow-up documented Alexander Reyes MD Work Phone: Start: 08-25-2019 End: 08-25-2019 Documentation of current medications Alexander Reyes MD Work Phone: Start: 08-25-2019 End: 08-25-2019 LYNCOS ARCH SUPP - 405 SPORT SERIES W/MET. 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 Work Phone: Start: 05-10-2019 Blood count complete auto&auto difrntl wbc Melquiades Jolley Start: 05-10-2019 Comprehensive metabo lic 2000 panel Melquiades Jolley Start: 05-10-2019 Lipid panel Melquiades Sagastumeoma lic Start: 05-10-2019 PSA screening Melquiades barton Start: 05-10-2019 TSH WITH REFLEX TO F REE T4 IF ABNORMAL Melquiades Jolley Start: 05-10-2019 Urnls dip stick/tabl et rgnt auto w/o microscopy Melquiades Jolley Start: 06-16-2010 CONVERTED SURGICAL PATHOLOGY Maverick Mcgovern Work Phone: Hernia repair Dariel Bryant History of Nose Surgery Anya Nicholson Comment on above: Reset broken nose; NEGATED: Highlighted rowStart: 08-25-2019 End: 08-25-2019 Documentation of current medications Bel Sánchez LPN Plan of Treatment Date Care Activity Detail Author Start: 10-16-2032 Screening for malignant neoplasm of colon [facility] Start: 11-07-2029 Lipid panel Lipid Panel [facility] Start: 05-25-2029 DTaP/Tdap/Td Vaccines (2 - Td or Tdap) DTaP/Tdap/Td Vaccines (2 - Td or Tdap) [facility] Start: 11-17-2025 Yearly Adult Physical Yearly Adult Physical [facility] Start: 11-07-2025 Prostate specific antigen measurement PSA Prostate Cancer Screening [facility] Start: 05-03-2025 End: 05-03-2025 Patient encounter procedure 05/03/2025 1:15 PM EDT Office Visit [facility] [address] [facility] [address] [place] [address] Maynor Malone MD [address] [place] [address] [facility] Start: 03-26-2025 Influenza vaccination [facility] Start: 02-28-2025 End: 02-28-2026 Carcinoembryonic Ag [Mass/volume] in Serum or Plasma [facility] Work Phone: Comment on above: Expected: 02/28/2025 (Approximate), Expi res: 02/28/2026 Start: 02-28-2025 End: 02-28-2026 CT Chest and Abdomen and Pelvis W contrast IV CT chest abdomen pelvis w IV contrast Imaging Routine Primary cancer of rectum (Multi) Expected: 02/28/2025, Expires: 02/28/2026 [facility] Work Phone: Comment on above: Expected: 02/28/2025, Expires: Start: 02-28-2025 End: 02-28-2025 Patient encounter procedure [facility] Start: 02-15-2025 End: 11-16-2025 CT for calcium scoring WO contrast and CTA W contrast IV Heart and coronary arteries CT cardiac scoring wo IV contrast Imaging Routine Routine adult health maintenance Expected: 02/15/2025 (Approximate), Expires: 11/16/2025 [facility] Work Phone: Comment on above: Expected: 02/15/2025 (Approximate), Expi res: 11/16/2025 Start: 02-05-2025 End: 02-05-2025 Patient encounter procedure 02/05/2025 3:30 PM EDT Office Visit [facility] [address] [facility] [address] [place] [phone] Maynor Malone MD [address] [facility] [address] [place], [place] [id number] [facility] Start: 01-18-2025 End: 01-18-2025 Patient encounter procedure 01/18/2025 4:00 PM EDT Office Visit [facility] [address] [facility] [address] [place] [phone] Maynor Malone MD [address] [facility] [address] [place] [address] [facility] Start: 12-20-2024 End: 12-20-2024 Admission to same day surgery center 12/20/2024 7:30 AM EDT - 12/20/2024 8:00 AM EDT Surgery [facility] [address] [place] [phone] Maynor Malone MD [address] [facility] [address], [address] [address] Cardioversion/Defibrillat ion [43023 (CPT )] [facility] Comment on above: Cardioversion/Defibrillation [16299 (CPT )] Start: 12-20-2024 Subsequent hospital visit by physician 12/20/2024 7:30 AM EDT Hospital Encounter [facility] [address] [place] [phone] Maynor Malone MD [address] [facility] [address], [address] [address] A-fib (Multi) [facility] Comment on above: A-fib (Multi) Start: 11-17-2024 End: 11-17-2024 Patient encounter procedure 11/17/2024 8:00 AM EDT Office Visit [place] [address] [address] [facility] [address] [phone] Ger Ibarra, PALamarC [address] [facility] [address], [address] [address] [facility] 3 Start: 11-16-2024 End: 11-16-2025 Comprehensive metabolic 2000 panel - Serum or Plasma Comprehensive metabolic panel Lab Routine Atrial fibrillation, unspecified type (Multi) Hyperlipidemia, unspecified hyperlipidemia type Abnormal EKG Expected: 11/16/2024 (Approximate), Expires: 11/16/2025 [facility] Work Phone: Comment on above: Expected: 11/16/2024 (Approximate), Expi res: 11/16/2025 Start: 11-16-2024 End: 11-16-2025 Creatine kinase [Enzymatic activity/volume] in Serum or Plasma CK Lab Routine Atrial fibrillation, unspecified type (Multi) Hyperlipidemia, unspecified hyperlipidemia type Abnormal EKG Expected: 11/16/2024 (Approximate), Expires: 11/16/2025 [facility] Work Phone: Comment on above: Expected: 11/16/2024 (Approximate), Expi res: 11/16/2025 Start: 11-16-2024 End: 11-16-2025 Erythrocyte sedimentation rate Sedimentation Rate Lab Routine Atrial fibrillation, unspecified type (Multi) Hyperlipidemia, unspecified hyperlipidemia type Abnormal EKG Expected: 11/16/2024 (Approximate), Expires: 11/16/2025 [facility] Work Phone: Comment on above: Expected: 11/16/2024 (Approximate), Expi res: 11/16/2025 Start: 11-16-2024 End: 11-16-2025 Lipid 1996 panel - Serum or Plasma Lipid panel Lab Routine Atrial fibrillation, unspecified type (Multi) Hyperlipidemia, unspecified hyperlipidemia type Abnormal EKG Expected: 11/16/2024 (Approximate), Expires: 11/16/2025 [facility] Work Phone: Comment on above: Expected: 11/16/2024 (Approximate), Expi res: 11/16/2025 Start: 11-16-2024 End: 11-16-2025 US Heart Transthoracic Transthoracic Echo (TTE) Complete Echocardiography Routine Paroxysmal atrial fibrillation (Multi) Mixed hyperlipidemia Expected: 11/16/2024, Expires: 11/16/2025 [facility] Work Phone: Comment on above: Expected: 11/16/2024, Expires: Start: 11-16-2024 End: 11-16-2026 US.doppler Lower extremity vein - right Vascular US lower extremity venous duplex right Vascular Ultrasound Routine Leg swelling Phlebitis Expected: 11/16/2024 (Approximate), Expires: 11/16/2026 [facility] Work Phone: Comment on above: Expected: 11/16/2024 (Approximate), Expi res: 11/16/2026 Start: 08-09-2024 End: 08-09-2025 Carcinoembryonic Ag [Mass/volume] in Serum or Plasma CEA Lab Routine Rectal cancer (Multi) Expected: 08/09/2024 (Approximate), Expires: 08/09/2025 [facility] Work Phone: Comment on above: Expected: 08/09/2024 (Approximate), Expi res: 08/09/2025 Start: 08-09-2024 End: 08-09-2025 Colonoscopy study Colonoscopy Screening; High Risk Patient; rectal cancer polyp Endoscopy Routine Rectal cancer (Multi) Expected: 08/09/2024, Expires: 08/09/2025 [facility] Work Phone: Comment on above: Expected: 08/09/2024, Expires: Start: 08-09-2024 End: 08-09-2024 Patient encounter procedure 08/09/2024 11:40 AM EST [facility] Visit [facility] [address] [facility] [address] [place] [address] [place] [address] [facility] [address] [address] [facility] Start: 07-28-2024 Diabetes mellitus screening Diabetes Screening [facility] Start: 05-19-2024 Lipid panel Lipid Panel [facility] Start: 03-26-2024 COVID-19 Vaccine ( season) COVID-19 Vaccine ( season) [facility] Start: 03-26-2024 Influenza vaccination Influenza Vaccine (#1) [facility] Start: 07-29-2023 End: 07-29-2023 Professional / ancillary services management 07/29/2023 9:15 AM EST Ancillary Procedure [facility] [address] [place] [phone] [facility] Start: 03-26-2023 COVID-19 Vaccine ( season) COVID-19 Vaccine ( season) [facility] Start: 03-26-2023 Influenza vaccination Influenza Vaccine (#1) [facility] Start: 12-22-2022 CATIA, Provider: Alexander Gamboa, Status: Pen, Time: 3:40 PM CATIA, Provider: Alexander Gamboa, Status: Pen, Time: 3:40 PM [id number] Work Phone: Start: 11-24-2022 End: 11-25-2023 MR Abdomen WO and W contrast IV MR abdomen w and wo contrast Imaging Routine Malignant neoplasm of rectum (HCC) Expected: 11/24/2022, Expires: 11/25/2023 [facility] Work Phone: Comment on above: Expected: 11/24/2022, Expires: 4 Start: 11-24-2022 End: 11-25-2023 MR Pelvis WO and W contrast IV MR pelvis w and wo contrast Imaging Routine Malignant neoplasm of rectum (HCC) Expected: 11/24/2022, Expires: 11/25/2023 [facility] Comment on above: Expected: 11/24/2022, Expires: 4 Start: 03-26-2020 Influenza vaccination INFLUENZA (#1) [facility] Start: 08-25-2019 End: 08-25-2019 Appointment Appointment [facility] Work Phone: Start: 08-25-2019 End: 08-25-2019 Radex foot complete minimum 3 views XR FOOT 3+ VWS-RT [facility] Work Phone: Start: 08-11-2019 MRI Foot without Contrast MRI Foot without Contrast [facility] Work Phone: Start: 2016 Pneumococcal vaccination Pneumococcal Vaccine (1 of 1 - PCV) [facility] Start: 2016 SHINGRIX VACCINE (1 of 2) SHINGRIX VACCINE (1 of 2) [facility] Start: 2016 Tuberculosis screening COLORECTAL CANCER SCREENING,SEE MODIFIER [facility] Start: 2016 Zoster Vaccines (1 of 2) Zoster Vaccines (1 of 2) [facility] Start: 2011 DIABETES SCREEN DIABETES SCREEN [facility] Start: 2001 LIPID SCREEN LIPID SCREEN [facility] Start: 1985 Hepatitis A Vaccines (1 of 2 - Risk 2-dose series) Hepatitis A Vaccines (1 of 2 - Risk 2-dose series) [facility] Start: 1985 Hepatitis B Vaccines (1 of 3 - 19+ 3-dose series) Hepatitis B Vaccines (1 of 3 - 19+ 3-dose series) [facility] Start: 1985 Pneumococcal vaccination Pneumococcal Vaccine (1 of 2 - PCV) [facility] Start: 1985 Urine microalbumin profile DTAP,TDAP,TD (1 - Tdap) [facility] Start: 1984 Diabetes mellitus screening Diabetes Screening [facility] Start: 1984 HEPATITIS C SCREENING HEPATITIS C SCREENING [facility] Start: 1984 Hepatitis C screening Hepatitis C Screening [facility] Start: 1984 HIV SCREENING HIV SCREENING [facility] Start: 1978 Depression Screening Depression Screening [facility] Start: 1967 MMR Vaccines (1 of 1 - Standard series) MMR Vaccines (1 of 1 - Standard series) [facility] Start: 02-23-1967 COVID-19 Vaccine (#1) COVID-19 Vaccine (#1) [facility] Start: 1966 Hepatitis B Vaccines (1 of 3 - 3-dose series) Hepatitis B Vaccines (1 of 3 - 3-dose series) [facility] Start: 1966 HIV screening HIV Screening [facility] Start: 1966 Lipid panel Lipid Panel [facility] Start: 1966 Screening for malignant neoplasm of colon [facility] Start: 1966 Yearly Adult Physical Yearly Adult Physical [facility] End: 08-02-2024 CT Chest and Abdomen and Pelvis W contrast IV [facility] Comment on above: Once for 1 Occurrences starting 08/02/19 until 08/02/2024 End: 01-02-2025 ECG 12 Lead [facility] Work Phone: Comment on above: Once for 1 Occurrences starting 01/03/20 until 01/02/2025 End: 11-30-2024 US Heart Transthoracic [facility] Work Phone: Comment on above: Once for 1 Occurrences starting 12/01/19 until 11/30/2024 End: 11-30-2024 Vascular US lower extremity venous insufficiency right [facility] Work Phone: Comment on above: Once for 1 Occurrences starting 12/01/19 until 11/30/2024 Immunizations Immunization Date Immunization Notes Care Provider Fa cili 05-25-2019 tetanus toxoid, reduced diphtheria toxoid, and acellular pertussis vaccine, adsorbed; Translations: [Tdap (Boostrix)] Melquiades Jolley [facility] Work Phone: Comment on above: Series: 09-02-1996 tetanus and diphther ia toxoids, adsorbed, preservative free, for adult use (2 Lf of tetanus toxoid and 2 Lf of diphtheria toxoid) Melquiades Jolley Work Phone: [facility] Work Phone: Comment on above: Series: 09-02-1996 tetanus and diphther ia toxoids, adsorbed, preservative free, for adult use (2 Lf of tetanus toxoid and 2 Lf of diphtheria toxoid) Dariel Nicholson [facility] Work Phone: Payers Date Payer Category Payer Self-pay 2024 Private Health Insurance [id number] 2023 Managed Care (Private) [id number] 2023 [facility] [id number] 2023-Present P Henrique Kamara [id number] [place] [id number] 2023 Private Health Insurance [facility]ly [facility] [id number] 2022 Unknown 1966 Unknown [id number] 56 1966 Unknown [id number] 242 1966 Unknown [id number] [id number] 244 1966 Unknown [id number] [id number] 244 1966 Unknown [id number] 2.16.840.1.892799.3.579.2.1 244 1966 Unknown [id number] [id number] 245 1966 Unknown [id number] 2.16.840.1.180784.3.579.2.1 245 1966 Unknown [id number] 2.16.840.1.920332.3.579.2.1 245 1966 Unknown [id number] 2.16.840.1.286287.3.579.2.1 245 1966 Unknown [id number] 2.16.840.1.700223.3.579.2.1 245 1966 Unknown [id number] 2.16.840.1.114728.3.579.2.1 247 1966 Unknown [id number] 2.16.840.1.614721.3.579.2.1 247 1966 Unknown [id number] 2.16.840.1.669401.3.579.2.1 247 1966 Unknown [id number] 2.16.840.1.829365.3.579.2.1 247 1966 Unknown [id number] 2.16.840.1.329478.3.579.2.1 247 Unknown [id number] Unknown [id number] 62 Unknown [id number] 62 Social History Date Type Detail Facility Assertion Unknown if ever smoked [facility] Work Phone: Start: 1965 Sex Assigned At Not on [facility] Start: 07-06-2023 End: 11-16-2024 Non-smoker Non-smoker [id number] Work Phone: Tobacco smoking status VAIS Tobacco smoking consumption unknown [facility] Start: 07-06-2023 End: 11-16-2024 Gender identity Not on file [facility] Start: 07-06-2023 End: 11-16-2024 Tobacco smoking status VAIS Never smoked tobacco [facility] Work Phone: Start: 07-06-2023 Tobacco use and exposure Smokeless tobacco non-user [facility] Work Phone: Start: 07-06-2023 End: 02-28-2025 Alcohol intake Current drinker of alcohol (finding) [facility] Work Phone: Start: 06-26-2023 End: 07-06-2023 Exposure to SARS-CoV-2 (event) Unable to assess [facility] Start: 1965 [facility] Start: 07-22-2023 Gender identity Identifies as male gender (finding) [facility] Work Phone: Start: 07-22-2023 Sexual orientation Heterosexual (fin ding) [facility] Work Phone: Start: 07-31-2023 End: 01-02-2025 Exposure to SARS-CoV-2 (event) Not sure [facility] Work Phone: History of tobacco use Passive smoker [facility] Work Phone: Start: 11-16-2024 Tobacco use and exposure Former smokeless tobacco user [facility] Work Phone: History of tobacco use Snuff User [facility] Work Phone: Start: 02-28-2025 Alcohol Comment Occasionally [facility] Work Phone: Start: 06-20-2022 Sex Male [facility] NEGATED: Highlighted rowStart: 08-25-2019 End: 08-25-2019 Alcohol use Alcohol use [facility] Work Phone: NEGATED: Highlighted rowStart: 08-25-2019 End: 08-25-2019 Details of drug misuse behavior Details of drug misuse behavior [facility] Work Phone: NEGATED: Highlighted rowStart: 08-25-2019 End: 08-25-2019 How many days of moderate to strenuous exercise, like a brisk walk, did you do in the last 7 days? How many days of moderate to strenuous exercise, like a brisk walk, did you do in the last 7 days? [facility] Work Phone: NEGATED: Highlighted rowStart: 08-25-2019 End: 08-25-2019 Assertion Never smoker [facility] Work Phone: NEGATED: Highlighted rowStart: NINF History of tobacco use Passive smoker [facility] Work Phone: Functional Status Date Assessment Result Facility 01-02-2025 [place] - suicide severity rating scale screener - recent [C-SSRS] [facility] Work Phone: 11-16-2024 Patient Health Questionnaire 2 item (PHQ-2) [Reported] [facility] Work Phone: 11-16-2024 PHQ-9 quick depressi on assessment panel [Reported.PHQ] [facility] Work Phone: 11-16-2024 [place] - suicide severity rating scale screener - recent [C-SSRS] [facility] Work Phone: NEGATED: Highlighted row Functional performance Functional status health issues are not documented Disease [facility] Work Phone: Mental Status Date Assessment Result Facility NEGATED: Highlighted row Cognitive function [Interpretation] Cognitive status health issues are not documented Disease [facility] Work Phone: Clinical Notes 11-01-2022 to 02-28-2025 Hunter Baig MD - 02/28/2025 10:00 AM EDCrispin Malone MD - 01/18/2025 4:00 PM EDTPatient Lavern He RN - 01/02/2025 1:07 PM ROSTMelquiades Jolley DO - 11/16/2024 8:00 AM EDT Note Date & Type Note Facility 02-28-2025 History of Present illness Narrative HPI Kevin Odom is a 59 y.o. male who underwent a colonoscopy 10/16/[address] Valles, and was found to have a malignant rectal polyp s/p polypectomy. He originally was following with Dr. Gamboa, who submitted him for TB and recommendations were observation. He recently completed a CT C/A/P 08/02/24, that showed no evidence of recurrence. Recently underwent cardioversion secondary to A. Fib 01/02/[address] Maynor Malone. Colonoscopy unremarkable with Dr. Valles 02/08/25. Path demonstrating TA. He presents today to discuss and possible flexible sigmoidoscopy. Patient reports recent cardioversion in 10/2024. Weight stable. Normal appetite. Eating and drinking normally. No nausea or vomiting. No dysuria or hematuria. Passing BM daily, single, no hematochezia, melena or diarrhea. CT C/A/P 02/2025 Impression: Needs Ordered. CT C/A/P 08/02/24 Impression: Colorectal cancer restaging scan compared to 07/29/2023. - No evidence of metastatic disease in the chest abdomen or pelvis. Additional stable chronic findings as described above including stable hepatic steatosis and few stable pulmonary nodules. MRI Rectum 12/15/22 Impression: 1. No rectal mass is identified. No abnormal mesorectal lymph nodes. Flexible Sigmoidoscopy 08/10/23 ([place]ila) Impression: - Normal rectal mucosa, no polyps or masses Colonoscopy 02/08/25 (Hai): Impression: - 1 polyp (3 mm) in the cecum. (Polypectomy). Path demonstrating TA. - Mild diverticulosis in the descending colom and sigmoid colon. - 1 polyp (5 mm) in the rectum. (Polypectomy). Path demonstrating partially cauterized and denuded benign rectal mucosa. Non-smoker/Occasional ETOH/No Illicit drug use PMH: PSH: Nose fracture repair, Umbilical hernia repair, No family history of CRC or IBD Employment: Past Medical History: Diagnosis Date Acute URI 07/06/2023 Aneurysm of ascending aorta without rupture 11/16/2024 3.9 cm Atrial fibrillation (Multi) 11/16/2024 Cellulitis of left abdominal wall 07/06/2023 Chronic pansinusitis 07/06/2023 Chronic sinusitis, unspecified Frequent sinus infections Coronary artery disease involving um[place]illa tribe coronary artery of um[place]illa tribe heart without angina pectoris 11/16/2024 Elevated CAC 20 Agatston Cough 07/06/2023 History of hyperlipidemia 07/06/2023 Metatarsalgia of right foot 07/06/2023 Right calf pain 07/06/2023 Superficial thrombosis of right lower extremity 07/06/2023 Tick bite 07/06/2023 Viral illness 07/06/2023 Past Surgical History: Procedure Laterality Date CARDIAC ELECTROPHYSIOLOGY PROCEDURE N/A 01/02/2025 Procedure: Cardioversion/Defibrillation; Surgeon: Maynor Malone MD; Location: [facility] Cardiac Form Grader Operator; Service: Cardiovascular; Laterality: N/A; spoke to pt, good with the time of 1130am. HERNIA REPAIR 09/04/2015 Hernia Repair NOSE SURGERY 07/28/2017 Nose Surgery No Known Allergies Review of Systems Constitutional: Negative for activity change, appetite change, chills, diaphoresis, fatigue, fever and unexpected weight change. Respiratory: Negative for cough, chest tightness and shortness of breath. Cardiovascular: Negative for chest pain, palpitations and leg swelling. Gastrointestinal: Negative for abdominal distention, abdominal pain, anal bleeding, blood in stool, constipation, diarrhea, nausea, rectal pain and vomiting. Genitourinary: Negative for difficulty urinating, dysuria and hematuria. Neurological: Negative for dizziness, weakness and light-headedness. All other systems reviewed and are negative. Medications Ordered Prior to Encounter[1] Physical Exam Vitals reviewed. 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 Constitutional: Appearance: Normal appearance. HENT: Head: Normocephalic. Mouth/Throat: Mouth: Mucous membranes are moist. Eyes: Extraocular Movements: Extraocular movements intact. Cardiovascular: Rate and Rhythm: Normal rate and regular rhythm. Pulses: Normal pulses. Heart sounds: Normal heart sounds. No murmur heard. Pulmonary: Effort: Pulmonary effort is normal. No respiratory distress. Breath sounds: Normal breath sounds. No stridor. No wheezing, rhonchi or rales. Chest: Chest wall: No tenderness. Abdominal: General: There is no distension. Palpations: Abdomen is soft. There is no mass. Tenderness: There is no abdominal tenderness. Hernia: No hernia is present. Comments: No inguinal lymphadenopathy. Musculoskeletal: General: No swelling or deformity. Normal range of motion. Cervical back: Normal range of motion. Right lower leg: No edema. Left lower leg: No edema. Lymphadenopathy: Cervical: No cervical adenopathy. Skin: General: Skin is warm and dry. Capillary Refill: Capillary refill takes less than 2 seconds. Neurological: General: No focal deficit present. Mental Status: He is alert and oriented to person, place, and time. Mental status is at baseline. Psychiatric: Mood and Affect: Mood normal. Behavior: Behavior normal. Thought Content: Thought content normal. Judgment: Judgment normal. Assessment and Plan: #History of malignant rectal polyp S/P polypectomy 09/2022 - Colonoscopy from 01/2025 and associated pathology report reviewed - Plan for repeat flex sig in office in 6 months - Repeat CEA now Hunter Baig MD 02/28/2025 10:36 AM [1] Current Outpatient Medications on File Prior to Visit Medication Sig Dispense Refill apixaban (Eliquis) 5 mg tablet Take 1 tablet (5 mg) by mouth 2 times a day. 60 tablet 11 ascorbic acid (Vitamin C) 500 mg tablet Take 1 tablet (500 mg) by mouth once daily. rosuvastatin (Crestor) 5 mg tablet Take 1 tablet (5 mg) by mouth once daily. 30 tablet 11 No current facility-administered medications on file prior to visit. documented in this encounter [facility] Work Phone: 01-18-2025 History of Present illness Narrative Referred by No ref. provider found HPI I am seeing Kevin in follow-up. He underwent a cardioversion which was successful. He now notes improvement in how he feels. More endurance less shortness of breath less palpitations and dizziness. He is using his Ausra mobile daily. He has had no recurring episodes of atrial fibrillation. Since October he is lost approximately 30 pounds. He is watching his diet. 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 Past Medical History: Problem List Items Addressed This Visit None Medical History[1] Past Surgical History: He has a past surgical history that includes Hernia repair (09/04/2015); Nose surgery (07/28/2017); and Cardiac electrophysiology procedure (N/A, 01/02/2025). Social History: He reports that he has never smoked. He has been exposed to tobacco smoke. He has quit using smokeless tobacco. His smokeless tobacco use included snuff. He reports current alcohol use of about 5.0 - 6.0 standard drinks of alcohol per week. He reports that he does not use drugs. Family History: Family History[2] Allergies: Patient has no known allergies. Outpatient Medications: Current Outpatient Medications Medication Instructions apixaban (ELIQUIS) 5 mg, oral, 2 times daily ascorbic acid (VITAMIN C) 500 mg, Daily ergocalciferol, vitamin D2, (VITAMIN D2 ORAL) Take by mouth. rosuvastatin (CRESTOR) 5 mg, oral, Daily Last Recorded Vitals: There were no vitals filed for this visit. Physical Patient is alert and oriented x3. HEENT is unremarkable mucous members are moist Neck no JVP no bruits upstrokes are full no thyromegaly Lungs are clear bilaterally. No wheezing crackles or rales Heart regular rhythm normal S1-S2 there is no S3 no murmurs are heard. Abdomen is soft bs are positive nontender nondistended no organomegaly no pulsatile masses Extremities have no edema. Distal pulses present palpable. Neuro is grossly nonfocal Skin has no rashes Last Labs: CBC - Lab Results Component Value Date WBC 4.4 11/07/2024 HGB 15.8 11/07/2024 HCT 47.0 11/07/2024 MCV 93.1 11/07/2024 PLT 228 11/07/2024 CMP - Lab Results Component Value Date CALCIUM 9.2 11/07/2024 PROT 6.8 11/07/2024 ALBUMIN 4.4 11/07/2024 AST 21 11/07/2024 ALT 25 11/07/2024 ALKPHOS 53 11/07/2024 BILITOT 0.9 11/07/2024 LIPID PANEL - Lab Results Component Value Date CHOL 223 (H) 11/07/2024 HDL 38 (L) 11/07/2024 CHHDL 5.9 (H) 11/07/2024 VLDL 39 05/19/2019 TRIG 435 (H) 11/07/2024 NHDL 185 (H) 11/07/2024 RENAL FUNCTION PANEL - Lab Results Component Value Date K 4.4 11/07/2024 No results found for: BNP, HGBA1C Procedure Cardioversion 01/02/2025 successful 200 J TTE 11/30/2024 EF 50%, LVH, A-fib CAC 05/30/19 20 Agatston units.TAA 3.9cm Assessment/Plan Atrial fibrillation. Diagnosed today at his primary care doctor's office. Started on Eliquis. Status post cardioversion 01/02/2025 at 200 J. This was successful. He will continues his Ausra mobile on a daily basis. If after a month no episodes of A-fib are noted, he will go to Eliquis as a pill in the pocket approach which we discussed. We will see what the burden of A-fib is in deciding if antiarrhythmic therapy or ablative therapy is necessary or just observation. He definitely notices improvement in how he feels. 2. CAD- Elevated CAC 20 units. This was based on elevated calcium score in 2020. Rosuvastatin started today. No symptoms of angina. 3. TAA 3.9. This will be reassessed on his echo 4. Lipids with hypertriglyceridemia- On rosuva. 11/07/2024 HDL 38 LDL not measurable triglycerides 435 blood sugar 110. Since then he is lost 30 pounds. He has a primary care doctor he is seeing in [place]. Evidently the blood work there was excellent. I am not able to view this. He will bring it to me next time. 5. Snoring- Eval for DEANA as potential cause of afib RTC 4 months Maynor Malone MD Instructions and follow up [1] Past Medical History: Diagnosis Date Acute URI 07/06/2023 Aneurysm of ascending aorta without rupture 11/16/2024 3.9 cm Atrial fibrillation (Multi) 11/16/2024 Cellulitis of left abdominal wall 07/06/2023 Chronic pansinusitis 07/06/2023 Chronic sinusitis, unspecified Frequent sinus infections Coronary artery disease involving um[place]illa tribe coronary artery of um[place]illa tribe heart without angina pectoris 11/16/2024 Elevated CAC 20 Agatston Cough 07/06/2023 History of hyperlipidemia 07/06/2023 Metatarsalgia of right foot 07/06/2023 Right calf pain 07/06/2023 Superficial thrombosis of right lower extremity 07/06/2023 Tick bite 07/06/2023 Viral illness 07/06/2023 [2] Family History Problem Relation Name Age of Onset Heart attack Mother 60 Heart attack Brother 65 documented in this encounter [facility] Work Phone: 01-18-2025 Instructions Maynor Malone MD - 01/18/2025 4:00 PM EDT Atrial fibrillation. Diagnosed today at his primary care doctor's office. Started on Eliquis. Status post cardioversion 01/02/2025 at 200 J. This was successful. He will continues his Ausra mobile on a daily basis. If after a month no episodes of A-fib are noted, he will go to Eliquis as a pill in the pocket approach which we discussed. We will see what the burden of A-fib is in deciding if antiarrhythmic therapy or ablative therapy is necessary or just observation. He definitely notices improvement in how he feels. 2. CAD- Elevated CAC 20 units. This was based on elevated calcium score in 2019. Rosuvastatin started today. No symptoms of angina. 3. TAA 3.9. This will be reassessed on his echo 4. Lipids with hypertriglyceridemia- On rosuva. 11/07/2024 HDL 38 LDL not measurable triglycerides 435 blood sugar 110. Since then he is lost 30 pounds. He has a primary care doctor he is seeing in [place]. Evidently the blood work there was excellent. I am not able to view this. He will bring it to me next time. 5. Snoring- Eval for DEANA as potential cause of afib RTC 4 months documented in this encounter [facility] Work Phone: 01-02-2025 Nurse Note 1305: Discharge instructions given to pt & spouse , understanding verbalized. No c/o nausea or dizziness. Ok to discharge to home [facility] 01-02-2025 Nurse Note 1305: Discharge instructions given to pt & spouse , understanding verbalized. No c/o nausea or dizziness. Ok to discharge to home documented in this encounter [facility] Work Phone: 01-02-2025 Surgery Postoperative evaluation and management note Physician Transition of Care Summary Invasive Cardiovascular Lab Procedure Date: 01/02/2025 Attending: * Maynor Malone - Primary Resident/Fellow/Other Contract Recruiter: Surgeons and Role: * No surgeons found with a matching role * Indications: Pre-op Diagnosis * A-fib (Multi) [I48.91] Post-procedure diagnosis: Post-op Diagnosis * A-fib (Multi) [I48.91] Procedure(s): Cardioversion/Defibrillation 21350 - [place] CARDIOVERSION ELECTIVE ARRHYTHMIA EXTERNAL Procedure Findings: Description of the Procedure: The patient was brought to the Form Grader Operator in a fasting state. 100 J followed by 200 J of synchronized energy was delivered after the patient was put to sleep with anesthesia. This was successful in converting atrial fibrillation to sinus bradycardia. When he awoke he was neurologically intact. Impressions 1. Successful electrocardioversion ultimately required 200 J of synchronized energy. Complications: None Stents/Implants: Implants No implant documentation for this case. Anticoagulation/Antiplatelet Plan: Continue Eliquis Estimated Blood Loss: 0 mL Anesthesia: General Anesthesia Staff: Anesthesiologist: Refugio Ribeiro MD [employer]ARK [employer]IES COORDINATOR: BRYAN Diaz Any Specimen(s) Removed: No specimens collected during this procedure. Disposition: Okay to discharge home in 1 hour Electronically signed by: Maynor Malone MD, 01/02/2025 12:04 PM [facility] Work Phone: 01-02-2025 Miscellaneous Notes Physician Transition of Care Summary Invasive Cardiovascular Lab Procedure Date: 01/02/2025 Attending: * Maynor Malone - Primary Resident/Fellow/Other Contract Recruiter: Surgeons and Role: * No surgeons found with a matching role * Indications: Pre-op Diagnosis * A-fib (Multi) [I48.91] Post-procedure diagnosis: Post-op Diagnosis * A-fib (Multi) [I48.91] Procedure(s): Cardioversion/Defibrillation 72132 - [place] CARDIOVERSION ELECTIVE ARRHYTHMIA EXTERNAL Procedure Findings: Description of the Procedure: The patient was brought to the Form Grader Operator in a fasting state. 100 J followed by 200 J of synchronized energy was delivered after the patient was put to sleep with anesthesia. This was successful in converting atrial fibrillation to sinus bradycardia. When he awoke he was neurologically intact. Impressions 1. Successful electrocardioversion ultimately required 200 J of synchronized energy. Complications: None Stents/Implants: Implants No implant documentation for this case. Anticoagulation/Antiplatelet Plan: Continue Eliquis Estimated Blood Loss: 0 mL Anesthesia: General Anesthesia Staff: Anesthesiologist: Refugio Ribeiro MD [employer] COORDINATOR: BRYAN Diaz Any Specimen(s) Removed: No specimens collected during this procedure. Disposition: Okay to discharge home in 1 hour Electronically signed by: Maynor Malone MD, 01/02/2025 12:04 PM documented in this encounter [facility] Work Phone: 11-16-2024 Evaluation + Plan note Associated Problem(s): Phlebitis Has been evaluated in the past checking ultrasound of the right leg. He states has been longstanding [facility] Work Phone: 11-16-2024 Evaluation + Plan note Associated Problem(s): Leg swelling Ultrasound of the leg wound performed [facility] Work Phone: 11-16-2024 Evaluation + Plan note Associated Problem(s): Atrial fibrillation (Multi) New onset A-fib started on Eliquis therapy. Going to have patient see cardiology recommend no heavy physical activity until this has been evaluated [facility] Work Phone: 11-16-2024 Miscellaneous Notes Associated Problem(s): Phlebitis Has been evaluated in the past checking ultrasound of the right leg. He states has been longstanding Associated Problem(s): Leg swelling Ultrasound of the leg wound performed Associated Problem(s): Atrial fibrillation (Multi) New onset A-fib started on Eliquis therapy. Going to have patient see cardiology recommend no heavy physical activity until this has been evaluated documented in this encounter [facility] Work Phone: 11-16-2024 History of Present illness Narrative Subjective Patient ID: Kevin Odom is a 59 y.o. male who presents for Annual Exam. Doing well. Patient presents for physical exam overall has been feeling well being treated for his rectal cancer. Patient had no troubles with headache or double vision or blurry vision no troubles with shortness of breath no troubles with abdominal pain or discomfort no troubles with numbness or tingling into the feet. Patient had history of varicosities of the right leg. Patient had some swelling of the right leg. Not up much at night to urinate. He has had no troubles with fever chills or night sweats. No troubles with nausea no vomiting Patient has family history of coronary disease. Mother with history of sudden cardiac . Brother had sudden cardiac . Mother with history of coronary disease. Patient had no troubles with chest pain or shortness of breath no dizziness no lightheadedness he was out deer hunting and had a deer in the road being had a [place] he had no chest discomfort no shortness of breath whatsoever. 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 Alcohol intake: 4 beers a week Caffeine intake: 1 cup in am Exercise: active lost 30 pounds Last Colonoscopy: UTD Last Pap smear: N/A Mammogram:N/A Last Dexa scan:N/A Shingles vaccine: recommended TdaP vaccine: Review of Systems Constitutional: Negative for activity change, appetite change, chills, diaphoresis, fatigue and unexpected weight change. HENT: Negative. Negative for congestion, dental problem, ear discharge, ear pain, hearing loss, mouth sores, nosebleeds, postnasal drip, sinus pressure, sinus pain, sore throat, tinnitus, trouble swallowing and voice change. Eyes: Negative for pain, discharge, redness, itching and visual disturbance. Respiratory: Negative. Negative for cough, choking, chest tightness, shortness of breath and stridor. Cardiovascular: Negative. Negative for chest pain, palpitations and leg swelling. Some swelling of the right leg. This has been longstanding. Believes it happened after to cut his leg. Gastrointestinal: Negative. Negative for abdominal distention, abdominal pain, anal bleeding, blood in stool, constipation, diarrhea, nausea and vomiting. Endocrine: Negative for cold intolerance, heat intolerance, polydipsia and polyuria. Genitourinary: Negative for difficulty urinating, dysuria, enuresis, flank pain, frequency, hematuria, penile swelling, testicular pain and urgency. Musculoskeletal: Negative for arthralgias, back pain, gait problem and myalgias. Foot pain Skin: Negative. Negative for rash and wound. Allergic/Immunologic: Negative for environmental allergies, food allergies and immunocompromised state. Neurological: Negative for dizziness, tremors, seizures, facial asymmetry, speech difficulty, light-headedness, numbness and headaches. Hematological: Negative for adenopathy. Does not bruise/bleed easily. Psychiatric/Behavioral: Negative for agitation, behavioral problems, decreased concentration, dysphoric mood, hallucinations, sleep disturbance and suicidal ideas. The patient is not nervous/anxious. Objective BP 104/72 Pulse 87 Temp 36.4 C (97.5 F) Ht 1.867 m (6' 1.5) Wt 124 kg (273 lb) SpO2 95% BMI 35.53 kg/m BSA Body surface area is 2.54 meters squared. Physical Exam Constitutional: General: He is not in acute distress. Appearance: Normal appearance. He is not ill-appearing or toxic-appearing. HENT: Head: Normocephalic. Right Ear: Tympanic membrane and external ear normal. Left Ear: Tympanic membrane and external ear normal. Nose: Nose normal. Eyes: Extraocular Movements: Extraocular movements intact. Conjunctiva/sclera: Conjunctivae normal. Pupils: Pupils are equal, round, and reactive to light. Cardiovascular: Rate and Rhythm: Normal rate. Rhythm irregular. Pulses: Normal pulses. Heart sounds: Normal heart sounds. Pulmonary: Effort: Pulmonary effort is normal. Breath sounds: Normal breath sounds. No wheezing or rhonchi. Abdominal: General: Abdomen is flat. Bowel sounds are normal. There is no distension. Palpations: Abdomen is soft. Tenderness: There is no abdominal tenderness. There is no right CVA tenderness or rebound. Hernia: No hernia is present. Genitourinary: Penis: Normal. Testes: Normal. Musculoskeletal: General: Normal range of motion. Cervical back: Normal range of motion. Right lower leg: Edema present. Comments: Patient had some swelling of the right lower extremity some superficial blood vessel prominence. Skin: General: Skin is warm and dry. Capillary Refill: Capillary refill takes less than 2 seconds. Findings: No bruising. Neurological: General: No focal deficit present. Mental Status: He is alert and oriented to person, place, and time. Cranial Nerves: No cranial nerve deficit. Sensory: No sensory deficit. Motor: No weakness. Coordination: Coordination normal. Gait: Gait normal. Deep Tendon Reflexes: Reflexes normal. Psychiatric: Mood and Affect: Mood normal. Behavior: Behavior normal. Thought Content: Thought content normal. Orders Only on 10/23/2024 Component Date Value Ref Range Status WHITE BLOOD CELL COUNT 11/07/2024 4.4 3.8 - 10.8 Thousand/uL Final RED BLOOD CELL COUNT 11/07/2024 5.05 4.20 - 5.80 Million/uL Final HEMOGLOBIN 11/07/2024 15.8 13.2 - 17.1 g/dL Final HEMATOCRIT 11/07/2024 47.0 38.5 - 50.0 % Final MCV 11/07/2024 93.1 80.0 - 100.0 fL Final MCH 11/07/2024 31.3 27.0 - 33.0 pg Final MCHC 11/07/2024 33.6 32.0 - 36.0 g/dL Final Comment: For adults, a slight decrease in the calculated MCHC value (in the range of 30 to 32 g/dL) is most likely not clinically significant; however, it should be interpreted with caution in correlation with other red cell parameters and the patient's clinical condition. RDW 11/07/2024 13.1 11.0 - 15.0 % Final PLATELET COUNT 11/07/2024 228 140 - 400 Thousand/uL Final MPV 11/07/2024 10.2 7.5 - 12.5 fL Final ABSOLUTE NEUTROPHILS 11/07/2024 1,399 (L) 1,500 - 7,800 cells/uL Final ABSOLUTE LYMPHOCYTES 11/07/2024 2,486 850 - 3,900 cells/uL Final ABSOLUTE MONOCYTES 11/07/2024 444 200 - 950 cells/uL Final ABSOLUTE EOSINOPHILS 11/07/2024 40 15 - 500 cells/uL Final ABSOLUTE BASOPHILS 11/07/2024 31 0 - 200 cells/uL Final NEUTROPHILS 11/07/2024 31.8 % Final LYMPHOCYTES 11/07/2024 56.5 % Final MONOCYTES 11/07/2024 10.1 % Final EOSINOPHILS 11/07/2024 0.9 % Final BASOPHILS 11/07/2024 0.7 % Final GLUCOSE 11/07/2024 110 (H) 65 - 99 mg/dL Final Comment: Fasting reference interval For someone without known diabetes, a glucose value between 100 and 125 mg/dL is consistent with prediabetes and should be confirmed with a follow-up test. UREA NITROGEN (BUN) 11/07/2024 14 7 - 25 mg/dL Final CREATININE 11/07/2024 0.86 0.70 - 1.30 mg/dL Final EGFR 11/07/2024 100 > OR = 60 mL/min/1.73m2 Final SODIUM 11/07/2024 139 135 - 146 mmol/L Final POTASSIUM 11/07/2024 4.4 3.5 - 5.3 mmol/L Final CHLORIDE 11/07/2024 102 98 - 110 mmol/L Final CARBON DIOXIDE 11/07/2024 28 20 - 32 mmol/L Final ELECTROLYTE BALANCE 11/07/2024 9 7 - 17 mmol/L (calc) Final CALCIUM 11/07/2024 9.2 8.6 - 10.3 mg/dL Final PROTEIN, TOTAL 11/07/2024 6.8 6.1 - 8.1 g/dL Final ALBUMIN 11/07/2024 4.4 3.6 - 5.1 g/dL Final BILIRUBIN, TOTAL 11/07/2024 0.9 0.2 - 1.2 mg/dL Final ALKALINE PHOSPHATASE 11/07/2024 53 35 - 144 U/L Final AST 11/07/2024 21 10 - 35 U/L Final ALT 11/07/2024 25 9 - 46 U/L Final TSH W/REFLEX TO FT4 11/07/2024 2.50 0.40 - 4.50 mIU/L Final CHOLESTEROL, TOTAL 11/07/2024 223 (H) <200 mg/dL Final HDL CHOLESTEROL 11/07/2024 38 (L) > OR = 40 mg/dL Final TRIGLYCERIDES 11/07/2024 435 (H) <150 mg/dL Final Comment: If a non-fasting specimen was collected, consider repeat triglyceride testing on a fasting specimen if clinically indicated. Devan et al. J. of Clin. Lipidol. 2015;9:129-169. LDL-CHOLESTEROL 11/07/2024 Final Comment: LDL cholesterol not calculated. Triglyceride levels greater than 400 mg/dL invalidate calculated LDL results. Reference range: <100 Desirable range <100 mg/dL for primary prevention; <70 mg/dL for patients with CHD or diabetic patients with > or = 2 CHD risk factors. LDL-C is now calculated using the Charmaine calculation, which is a validated novel method providing better accuracy than the Friedewald equation in the estimation of LDL-C. Bayron PELAYO et al. CATHY. 2013;310(19): 6389-0282 (http://education.CartiHeal/faq/AFD943) CHOL/HDLC RATIO 11/07/2024 5.9 (H) <5.0 (calc) Final NON HDL CHOLESTEROL 11/07/2024 185 (H) <130 mg/dL (calc) Final Comment: For patients with diabetes plus 1 major ASCVD risk factor, treating to a non-HDL-C goal of <100 mg/dL (LDL-C of <70 mg/dL) is considered a therapeutic option. PSA, TOTAL 11/07/2024 0.74 < OR = 4.00 ng/mL Final Comment: The total PSA value from this assay system is standardized against the WHO standard. The test result will be approximately 20% lower when compared to the equimolar-standardized total PSA (Eli Marce). Comparison of serial PSA results should be interpreted with this fact in mind. This test was performed using the Siemens chemiluminescent method. Values obtained from different assay methods cannot be used interchangeably. PSA levels, regardless of value, should not be interpreted as absolute evidence of the presence or absence of disease. Office Visit on 10/14/2024 Component Date Value Ref Range Status POC Rapid Influenza A 10/14/2024 Positive (A) Negative Final POC Rapid Influenza B 10/14/2024 Negative Negative Final Lab on 08/09/2024 Component Date Value Ref Range Status Carcinoembryonic AG 08/09/2024 1.4 ug/L Final Medications Ordered Prior to Encounter[1] No images are attached to the encounter. Assessment/Plan Problem List Items Addressed This Visit ICD-10-CM Abnormal EKG R94.31 Relevant Orders Referral to Cardiology Comprehensive metabolic panel Lipid panel Sedimentation Rate CK Leg swelling M79.89 Ultrasound of the leg wound performed Relevant Orders Vascular US lower extremity venous duplex right Rectal cancer (Multi) C20 Phlebitis I80.9 Has been evaluated in the past checking ultrasound of the right leg. He states has been longstanding Relevant Orders Vascular US lower extremity venous duplex right Atrial fibrillation (Multi) I48.91 New onset A-fib started on Eliquis therapy. Going to have patient see cardiology recommend no heavy physical activity until this has been evaluated Relevant Medications apixaban (Eliquis) 5 mg tablet Other Relevant Orders ECG 12 Lead (Completed) Referral to Cardiology Comprehensive metabolic panel Lipid panel Sedimentation Rate CK Hyperlipidemia E78.5 Relevant Medications rosuvastatin (Crestor) 5 mg tablet Other Relevant Orders Referral to Cardiology Comprehensive metabolic panel Lipid panel Sedimentation Rate CK Routine adult health maintenance - Primary Z00.[address] cardiac scoring wo IV contrast [1] Current Outpatient Medications on File Prior to Visit Medication Sig Dispense Refill ascorbic acid (Vitamin C) 500 mg tablet Take 1 tablet (500 mg) by mouth once daily. ergocalciferol, vitamin D2, (VITAMIN D2 ORAL) Take by mouth. No current facility-administered medications on file prior to visit. documented in this encounter [facility] Work Phone: 11-16-2024 Instructions Melquiades Jolley DO - 11/16/2024 8:00 AM EDT You have an abnormal heart rhythm called atrial fibrillation. You are at risk for stroke because of this. Starting blood thinner medicine to help with this and referring to cardiology. Cholesterol level is elevated starting rosuvastatin therapy if troubles with muscle aches or discomfort while taking the medicine please call and let us know recheck lipids in 4 weeks. If any difficulties with chest pain shortness of breath dizziness or lightheadedness, please go to the ER or call 911. Because of the swelling in the right lower extremity doing an ultrasound. Labs have been reviewed medications reviewed and reconciled Recommend doing shingles vaccination at the pharmacy. Going to recheck CT scoring of the coronary arteries. congratulations on weight loss. documented in this encounter [facility] Work Phone: 11-16-2024 History of Present illness Narrative Referred by No ref. provider found HPI I am seeing Kevin for evaluation of atrial fibrillation. Kevin is 59. He has been feeling fine. He works on [employer]. He and his walk 3 to 5 miles a day without difficulty. He went to see his primary care doctor today for routine visit. He was found to be in atrial fibrillation with a controlled ventricular response. He has no symptoms of chest pain or pressure no palpitations no shortness of breath. He was therefore referred for further evaluation. He has a history of CAD based upon an elevated calcium score in 2019 that came back at 20 units. He also has a slight thoracic aortic aneurysm measuring 3.9 cm. Up until today he was on no medications. He does have a family history of premature coronary disease with his mother having heart attacks starting in her 60s and his brother having a heart attack at 65. Past Medical History: Problem List Items Addressed This Visit None Medical History[1] Past Surgical History: He has a past surgical history that includes Hernia repair (09/04/2015) and Nose surgery (07/28/2017). Social History: He reports that he has never smoked. He has been exposed to tobacco smoke. He has quit using smokeless tobacco. His smokeless tobacco use included snuff. He reports current alcohol use of about 5.0 - 6.0 standard drinks of alcohol per week. He reports that he does not use drugs. Family History: Family History[2] Allergies: Patient has no known allergies. Outpatient Medications: Current Outpatient Medications Medication Instructions apixaban (ELIQUIS) 5 mg, oral, 2 times daily ascorbic acid (VITAMIN C) 500 mg, Daily ergocalciferol, vitamin D2, (VITAMIN D2 ORAL) Take by mouth. rosuvastatin (CRESTOR) 5 mg, oral, Daily Last Recorded Vitals: There were no vitals filed for this visit. Physical Patient is alert and oriented x3. HEENT is unremarkable mucous members are moist Neck no JVP no bruits upstrokes are full no thyromegaly Lungs are clear bilaterally. No wheezing crackles or rales Heart irregular rhythm normal S1-S2 there is no S3 no murmurs are heard. Abdomen is soft bs are positive nontender nondistended no organomegaly no pulsatile masses Extremities have no edema. Distal pulses present palpable. Neuro is grossly nonfocal Skin has no rashes Last Labs: CBC - Lab Results Component Value Date WBC 4.4 11/07/2024 HGB 15.8 11/07/2024 HCT 47.0 11/07/2024 MCV 93.1 11/07/2024 PLT 228 11/07/2024 CMP - Lab Results Component Value Date CALCIUM 9.2 11/07/2024 PROT 6.8 11/07/2024 ALBUMIN 4.4 11/07/2024 AST 21 11/07/2024 ALT 25 11/07/2024 ALKPHOS 53 11/07/2024 BILITOT 0.9 11/07/2024 LIPID PANEL - Lab Results Component Value Date CHOL 223 (H) 11/07/2024 HDL 38 (L) 11/07/2024 CHHDL 5.9 (H) 11/07/2024 VLDL 39 05/19/2019 TRIG 435 (H) 11/07/2024 NHDL 185 (H) 11/07/2024 RENAL FUNCTION PANEL - Lab Results Component Value Date K 4.4 11/07/2024 No results found for: BNP, HGBA1C Procedure CAC 05/30/19 20 Agatston units.TAA 3.9cm Assessment/Plan Atrial fibrillation. Diagnosed today at his primary care doctor's office. Started on Eliquis. Heart rates are controlled. The plan will be to proceed with a cardioversion in 4 weeks. An echo will be performed today 2. CAD- Elevated CAC 20 units. This was based on elevated calcium score in 2019. Rosuvastatin started today. No symptoms of angina. 3. TAA 3.9. This will be reassessed on his echo 4. Lipids- On rosuva today. Target LDL less than 70. 5. Snoring- Eval for DEANA as potential cause of afib 2D echo. Cardioversion 4 weeks. See me back 8 to 10 weeks. Maynor Malone MD Instructions and follow up [1] Past Medical History: Diagnosis Date Acute URI 07/06/2023 Cellulitis of left abdominal wall 07/06/2023 Chronic pansinusitis 07/06/2023 Chronic sinusitis, unspecified Frequent sinus infections Cough 07/06/2023 History of hyperlipidemia 07/06/2023 Metatarsalgia of right foot 07/06/2023 Right calf pain 07/06/2023 Superficial thrombosis of right lower extremity 07/06/2023 Tick bite 07/06/2023 Viral illness 07/06/2023 [2] No family history on file. documented in this encounter [facility] Work Phone: 10-14-2024 History of Present illness Narrative Subjective Patient ID: Kevin Odom is a 59 y.o. male who presents for Cough (Chest congestion, body aches, cough X yesterday ). Cough Associated symptoms include chills, headaches, myalgias and postnasal drip. Pertinent negatives include no chest pain, fever, rhinorrhea or shortness of breath. Patient was just on vacation in [place]. He was on a golf trip. There were some others who ended up getting sick as well. This was yesterday with symptoms starting. He states that while at the airport he started having increasing symptoms including start of bodyaches as well as a cough and feeling more congestion in his chest. He does state that the symptoms seem to start more suddenly. Review of Systems Constitutional: Positive for chills and fatigue. Negative for fever. HENT: Positive for congestion and postnasal drip. Negative for rhinorrhea, sinus pressure and sinus pain. Respiratory: Positive for cough. Negative for shortness of breath. Cardiovascular: Negative for chest pain. Gastrointestinal: Negative for abdominal pain, constipation, diarrhea, nausea and vomiting. Musculoskeletal: Positive for myalgias. Negative for arthralgias. Neurological: Positive for headaches. Negative for dizziness and light-headedness. Objective BP 143/75 Pulse 70 Temp 36.7 C (98.1 F) Wt 127 kg (281 lb) SpO2 94% BMI 36.08 kg/m Physical Exam Vitals and nursing note reviewed. Constitutional: Appearance: Normal appearance. He is normal weight. HENT: Head: Normocephalic and atraumatic. Cardiovascular: Rate and Rhythm: Normal rate and regular rhythm. Heart sounds: Normal heart sounds. Pulmonary: Effort: Pulmonary effort is normal. Breath sounds: Normal breath sounds. Neurological: Mental Status: He is alert. Assessment/Plan Problem List Items Addressed This Visit None Visit Diagnoses Codes Influenza A - Primary J10.1 Relevant Medications oseltamivir (Tamiflu) 75 mg capsule Body aches R52 Relevant Medications oseltamivir (Tamiflu) 75 mg capsule Chills R68.83 Relevant Medications oseltamivir (Tamiflu) 75 mg capsule Fatigue, unspecified type R53.83 Relevant Medications oseltamivir (Tamiflu) 75 mg capsule History of physical examination as above. Patient coming in with acute onset of symptoms including body aches, chills, cough and fatigue. He was recently on a golf trip in [place] and there were a couple other individuals who had illness symptoms. He states that his symptoms started on fairly suddenly. Rapid flu testing in the office was positive. Sent in prescription for Tamiflu to the pharmacy. Discussed other [id number] medications that can be used to help to treat symptoms. Did discuss other signs and symptoms that would require reevaluation in the office versus immediate treatment in the emergency department. He is understanding and agreeable with this plan. documented in this encounter [facility] Work Phone: 10-14-2024 Instructions Hunter Peoples DO - 10/14/2024 8:40 AM EDT I went ahead and sent in the prescription for Tamiflu. You can take this twice daily for the next 5 days. Please continue with [id number] treatments which can be just for symptoms in general. You can use Tylenol or ibuprofen for any sort of fevers, chills or bodyaches. You can use [id number] cold and cough medication for your other symptoms as well. Please make sure that you are staying very well-hydrated and making sure that you are getting plenty of protein and other nutrients in your diet. I would recommend a little bit of sun exposure especially as the weather is a little bit nicer. Try to avoid midday sun as that is also not the best for your skin. Overall without having any other serious medical conditions or being on a lot of medications, you should recover decently quickly. Flu can last anywhere from 4-7 or more days but recovery is variable depending on the person. I would definitely be careful around anyone within the first week depending on recovery so as to avoid spreading it. Please make sure that you wash your hands thoroughly and if you do need to be out, I would definitely wear a mask to prevent coughing or respiratory droplets on anyone else. If you start experiencing any sort of more severe symptoms such as shortness of breath or chest pain or any other concerning symptoms, you would need to go to the emergency department. Please call with any other questions or concerns. Thank you documented in this encounter [facility] Work Phone: 08-09-2024 History of Present illness Narrative Associated Order(s): Flexible Signmoidoscopy In Clinic Post-Procedure Diagnose(s): Adenomatous rectal polyp HPI Kevin Odom is a 58 y.o. male who underwent a colonoscopy 10/16/[address] Valles, and was found to have a malignant rectal polyp s/p polypectomy. He originally was following with Dr. Gamboa, who submitted him for TB and recommendations were observation. He recently completed a CT C/A/P 08/02/24, that showed no evidence of recurrence. He presents today to discuss and possible flexible sigmoidoscopy. He reports he is doing fine overall. Denies any new medical problems. Normal appetite. Has a bm daily. Denies hematochezia or melena. Denies nausea or vomiting. Denies abdominal pain. Denies unexplained weight loss. CT C/A/P 08/02/24 Impression: Colorectal cancer restaging scan compared to 07/29/2023. - No evidence of metastatic disease in the chest abdomen or pelvis. Additional stable chronic findings as described above including stable hepatic steatosis and few stable pulmonary nodules. MRI Rectum 12/15/22 Impression: 1. No rectal mass is identified. No abnormal mesorectal lymph nodes. Flexible Sigmoidoscopy 08/10/23 (Nila) Impression: - Normal rectal mucosa, no polyps or masses Colonoscopy 10/16/22 (Hai): Impression: - Mild Diverticulosis of the descending colon and sigmoid colon - Polyp (3 mm) in the sigmoid colon. (Polypectomy). Path demonstrating TA. - Polyp (12 mm) in the rectum. (Polypectomy). Path demonstrating invasive moderately differentiated adenocarcinoma arising in a tubular adenoma with high-grade dysplasia. Non-smoker/Occasional ETOH/No Illicit drug use PMH: PSH: Nose fracture repair, Umbilical hernia repair, No family history of CRC or IBD Employment: Past Medical History: Diagnosis Date Acute URI 07/06/2023 Cellulitis of left abdominal wall 07/06/2023 Chronic pansinusitis 07/06/2023 Chronic sinusitis, unspecified Frequent sinus infections Cough 07/06/2023 History of hyperlipidemia 07/06/2023 Metatarsalgia of right foot 07/06/2023 Right calf pain 07/06/2023 Superficial thrombosis of right lower extremity 07/06/2023 Tick bite 07/06/2023 Viral illness 07/06/2023 Past Surgical History: Procedure Laterality Date HERNIA REPAIR 09/04/2015 Hernia Repair NOSE SURGERY 07/28/2017 Nose Surgery No Known Allergies Review of Systems Constitutional: Negative for activity change, appetite change, chills, diaphoresis, fatigue, fever and unexpected weight change. Respiratory: Negative for cough, chest tightness and shortness of breath. Cardiovascular: Negative for chest pain, palpitations and leg swelling. Gastrointestinal: Negative for abdominal distention, abdominal pain, anal bleeding, blood in stool, constipation, diarrhea, nausea, rectal pain and vomiting. Genitourinary: Negative for difficulty urinating, dysuria and hematuria. Neurological: Negative for dizziness, weakness and light-headedness. All other systems reviewed and are negative. No current outpatient medications on file prior to visit. No current facility-administered medications on file prior to visit. Physical Exam Vitals reviewed. 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 Constitutional: Appearance: Normal appearance. HENT: Head: Normocephalic. Eyes: Pupils: Pupils are equal, round, and reactive to light. Cardiovascular: Rate and Rhythm: Normal rate and regular rhythm. Pulses: Normal pulses. Heart sounds: Normal heart sounds. No murmur heard. Pulmonary: Effort: Pulmonary effort is normal. No respiratory distress. Breath sounds: Normal breath sounds. No stridor. No wheezing, rhonchi or rales. Chest: Chest wall: No tenderness. Abdominal: General: There is no distension. Palpations: Abdomen is soft. There is no mass. Tenderness: There is no abdominal tenderness. Hernia: No hernia is present. Comments: No inguinal lymphadenopathy. Musculoskeletal: General: No swelling or deformity. Normal range of motion. Cervical back: Normal range of motion. Right lower leg: No edema. Left lower leg: No edema. Skin: General: Skin is warm and dry. Capillary Refill: Capillary refill takes less than 2 seconds. Neurological: General: No focal deficit present. Mental Status: He is alert and oriented to person, place, and time. Mental status is at baseline. Psychiatric: Mood and Affect: Mood normal. Behavior: Behavior normal. Thought Content: Thought content normal. Judgment: Judgment normal. Flexible Signmoidoscopy In Clinic Date/Time: 08/09/2024 12:12 PM Performed by: Hunter Baig MD Authorized by: Hunter Baig MD Comments: Perianal exam: Non-thrombosed external hemorrhoids. CLARISSA: Intact sphincter tone. No palpable mass/lesion/blood. Flexible sigmoidoscopy: Scope advanced to sigmoid colon where formed stool was encountered. No evidence of diverticulosis in distal sigmoid colon. Rectal mucosa well visualized. No scar identified. No masses/lesions/polyps within rectum. Assessment and Plan: #History of malignant rectal polyp S/P polypectomy 09/2022 - Clinically doing well, flex sig today unremarkable, ROCKY on recent CT C/A/P 07/2024 - CEA today - Colonoscopy 01/2025; this will take the place of 6 month flex sig; he can complete this locally - Repeat CT C/A/P 07/2025 - Follow-up with ma 02/2025 Hunter Baig MD 08/09/2024 12:12 PM documented in this encounter [facility] Work Phone: 02-01-2024 History of Present illness Narrative Chief Complaint: Fu malignant rectal polyp History Of Present Illness Kevin Odom is a 58 y.o. male with history of malignant rectal polyp s/p endoscopic resection. Last MRI 11/2022, [facility]. Last Flexible Sigmoidoscopy was July 2023- [facility]. Here today for endoscopic surveillance. 07/30/23 - CT C/A/P IMPRESSION: No new evidence to suggest intrathoracic metastatic disease. Several tiny subpleural nodular foci of the left base are unchanged and likely benign. 2. Diffuse fatty infiltration of the liver with small irregular regions of relative sparing in the periphery and adjacent to the gallbladder. Left hepatic lobe lateral segment anterior subpleural 0.9 cm mildly hyperattenuating focus is stable and could represent a localized region of relative fatty sparing as well. No new focal hepatic lesion. 3. Colonic diverticulosis without acute diverticulitis. Past Medical History He has a past medical history of Acute URI (07/06/2023), Cellulitis of left abdominal wall (07/06/2023), Chronic pansinusitis (07/06/2023), Chronic sinusitis, unspecified, Cough (07/06/2023), History of hyperlipidemia (07/06/2023), Metatarsalgia of right foot (07/06/2023), Right calf pain (07/06/2023), Superficial thrombosis of right lower extremity (07/06/2023), Tick bite (07/06/2023), and Viral illness (07/06/2023). Surgical History He has a past surgical history that includes Hernia repair (09/04/2015) and Nose surgery (07/28/2017). Social History He reports that he has never smoked. He has never been exposed to tobacco smoke. He has never used smokeless tobacco. He reports current alcohol use of about 5.0 - 6.0 standard drinks of alcohol per week. He reports that he does not use drugs. Family History No family history on file. Allergies Patient has no known allergies. Home Medications Prior to Admission medications Not on File Review of Systems Constitutional: Negative for activity change, appetite change, fatigue, fever and unexpected weight change. HENT: Negative for sore throat. Eyes: Negative for visual disturbance. Respiratory: Negative for shortness of breath. Cardiovascular: Negative for chest pain, palpitations and leg swelling. Gastrointestinal: Negative for abdominal distention, abdominal pain, anal bleeding, blood in stool, constipation, diarrhea, nausea, rectal pain and vomiting. Endocrine: Negative for polydipsia. Genitourinary: Negative for difficulty urinating and dysuria. Musculoskeletal: Negative for arthralgias. Skin: Negative for wound. Neurological: Negative for dizziness, weakness and light-headedness. Hematological: Negative for adenopathy. Psychiatric/Behavioral: Negative for confusion. Imaging: CT chest abdomen pelvis w IV contrast Result Date: 07/30/2023 Interpreted By: Serg Sanchez, STUDY: CT CHEST ABDOMEN PELVIS W IV CONTRAST; 07/29/2023 9:56 am INDICATION: Signs/Symptoms: rectal cancer surviellance C20: Rectal malignant neoplasm. COMPARISON: 12/14/2022. ACCESSION NUMBER(S): [id number] ORDERING CLINICIAN: ALEXANDER GAMBOA TECHNIQUE: Contiguous axial images were obtained through the chest, abdomen, and pelvis after the administration of 75 mL Omnipaque 350 intravenous contrast. Coronal and sagittal reformations were made. FINDINGS: CHEST: VESSELS: Few scattered small atherosclerotic calcifications are seen within the aorta and branch vessels. No thoracic aortic aneurysm. HEART: The heart is not significantly enlarged. There is trace pericardial fluid versus pericardial thickening. MEDIASTINUM AND LIBBY: No mediastinal or hilar lymphadenopathy. LUNG/PLEURA/LARGE AIRWAYS: Minimal dependent atelectasis is present. No localized infiltrate or consolidation. Left lower lobe anterior subpleural 4 mm nodule is unchanged (image 236 of 352). Additional tiny subpleural nodular foci of the lingula and left lower lobe are also stable. No significant new or enlarging pulmonary nodule is seen. No pleural effusion or pneumothorax is seen bilaterally. CHEST WALL AND LOWER NECK: Symmetric mild gynecomastia is similar to prior. No axillary lymphadenopathy. ABDOMEN: LIVER: There is diffuse fatty infiltration of the liver with small regions of relative sparing in the periphery and adjacent to the gallbladder. Vague rounded 9 mm slightly hyperattenuating focus along the anterior margin of the left hepatic lobe lateral segment is unchanged. No new focal hepatic lesion is seen. BILE DUCTS: Nondilated. GALLBLADDER: The gallbladder is not distended and without calcified stones. PANCREAS: Within normal limits. SPLEEN: Within normal limits. ADRENAL GLANDS: Within normal limits. KIDNEYS AND URETERS: The kidneys enhance symmetrically without focal lesion. No hydroureteronephrosis bilaterally. BOWEL: No bowel obstruction. Appendix is normal. Scattered colonic diverticula are present without acute diverticulitis. No appreciable rectal wall thickening. No enlarged perirectal nodes are evident. VESSELS: There is no aneurysmal dilatation of the abdominal aorta. The IVC is within normal limits. PERITONEUM/RETROPERITONEUM/LYMPH NODES: No ascites or free air, no fluid collection. No retroperitoneal fluid collection or lymphadenopathy. ABDOMINAL WALL: Unremarkable. 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 Degenerative changes of the shoulders are partially visualized. Multilevel disc space narrowing and anterior endplate spurring is again seen in the thoracic and lumbar spine. Lower lumbar mild facet arthrosis is present. There is joint space narrowing and marginal spurring of both hips. No new focal bone lesion is seen. Overall stable exam. No new evidence to suggest intrathoracic metastatic disease. Several tiny subpleural nodular foci of the left base are unchanged and likely benign. Diffuse fatty infiltration of the liver with small irregular regions of relative sparing in the periphery and adjacent to the gallbladder. Left hepatic lobe lateral segment anterior subpleural 0.9 cm mildly hyperattenuating focus is stable and could represent a localized region of relative fatty sparing as well. No new focal hepatic lesion. Colonic diverticulosis without acute diverticulitis. MACRO: None. Signed by: Serg Sanchez 07/30/2023 5:57 PM Dictation workstation: [id number] Labs: Lab Results Component Value Date AST 30 07/28/2023 ALT 42 07/28/2023 ALKPHOS 58 07/28/2023 PROT 7.0 07/28/2023 ALBUMIN 4.5 07/28/2023 Physical Exam Vitals reviewed. 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 Constitutional: Appearance: Normal appearance. Cardiovascular: Rate and Rhythm: Normal rate and regular rhythm. Pulmonary: Effort: Pulmonary effort is normal. Breath sounds: Normal breath sounds. Abdominal: General: Abdomen is flat. There is no distension. Palpations: Abdomen is soft. There is no mass. Tenderness: There is no abdominal tenderness. Hernia: No hernia is present. Genitourinary: Rectum: Normal. Neurological: General: No focal deficit present. Mental Status: He is alert. Psychiatric: Behavior: Behavior normal. Procedures Last Recorded Vitals There were no vitals taken for this visit. Assessment/Plan History of malignant rectal polyp s/p polypectomy. No evidence of recurrent disease on today's proctoscopy or on recent imaging. RTC in 6 months for continued surveillance. Will schedule followup with Dr. Baig as I will be leaving prior to that time. Dr. Alexander Gamboa 01/31/2024 documented in this encounter [facility] Work Phone: 08-10-2023 History of Present illness Narrative Associated Order(s): flexible sigmoidoscopy Post-Procedure Diagnose(s): History of rectal polyps Chief Complaint: History Of Present Illness Kevin Odom is a 57 y.o. male with history of malignant rectal polyp s/p endoscopic resection. Last MRI 11/2022, [facility]. Last Flexible Sigmoidoscopy was 03/23/23 - [facility]. Doing well. No new complaints. Here today for endoscopic surveillance. 07/30/23 - CT C/A/P IMPRESSION: No new evidence to suggest intrathoracic metastatic disease. Several tiny subpleural nodular foci of the left base are unchanged and likely benign. 2. Diffuse fatty infiltration of the liver with small irregular regions of relative sparing in the periphery and adjacent to the gallbladder. Left hepatic lobe lateral segment anterior subpleural 0.9 cm mildly hyperattenuating focus is stable and could represent a localized region of relative fatty sparing as well. No new focal hepatic lesion. 3. Colonic diverticulosis without acute diverticulitis. Past Medical History He has a past medical history of Acute URI (07/06/2023), Cellulitis of left abdominal wall (07/06/2023), Chronic pansinusitis (07/06/2023), Chronic sinusitis, unspecified, Cough (07/06/2023), History of hyperlipidemia (07/06/2023), Metatarsalgia of right foot (07/06/2023), Right calf pain (07/06/2023), Superficial thrombosis of right lower extremity (07/06/2023), Tick bite (07/06/2023), and Viral illness (07/06/2023). Surgical History He has a past surgical history that includes Hernia repair (09/04/2015) and Nose surgery (07/28/2017). Social History He reports that he has never smoked. He has never been exposed to tobacco smoke. He has never used smokeless tobacco. He reports current alcohol use of about 5.0 - 6.0 standard drinks of alcohol per week. He reports that he does not use drugs. Family History No family history on file. Allergies Patient has no known allergies. Home Medications Prior to Admission medications Not on File Review of Systems Constitutional: Negative for activity change, appetite change, fatigue, fever and unexpected weight change. HENT: Negative for sore throat. Eyes: Negative for visual disturbance. Respiratory: Negative for shortness of breath. Cardiovascular: Negative for chest pain, palpitations and leg swelling. Gastrointestinal: Negative for abdominal distention, abdominal pain, anal bleeding, blood in stool, constipation, diarrhea, nausea, rectal pain and vomiting. Endocrine: Negative for polydipsia. Genitourinary: Negative for difficulty urinating and dysuria. Musculoskeletal: Negative for arthralgias. Skin: Negative for wound. Neurological: Negative for dizziness, weakness and light-headedness. Hematological: Negative for adenopathy. Psychiatric/Behavioral: Negative for confusion. Imaging: CT chest abdomen pelvis w IV contrast Result Date: 07/30/2023 Interpreted By: Serg Sanchez, STUDY: CT CHEST ABDOMEN PELVIS W IV CONTRAST; 07/29/2023 9:56 am INDICATION: Signs/Symptoms: rectal cancer surviellance C20: Rectal malignant neoplasm. COMPARISON: 12/14/2022. ACCESSION NUMBER(S): [id number] ORDERING CLINICIAN: ALEXANDER GAMBOA TECHNIQUE: Contiguous axial images were obtained through the chest, abdomen, and pelvis after the administration of 75 mL Omnipaque 350 intravenous contrast. Coronal and sagittal reformations were made. FINDINGS: CHEST: VESSELS: Few scattered small atherosclerotic calcifications are seen within the aorta and branch vessels. No thoracic aortic aneurysm. HEART: The heart is not significantly enlarged. There is trace pericardial fluid versus pericardial thickening. MEDIASTINUM AND LIBBY: No mediastinal or hilar lymphadenopathy. LUNG/PLEURA/LARGE AIRWAYS: Minimal dependent atelectasis is present. No localized infiltrate or consolidation. Left lower lobe anterior subpleural 4 mm nodule is unchanged (image 236 of 352). Additional tiny subpleural nodular foci of the lingula and left lower lobe are also stable. No significant new or enlarging pulmonary nodule is seen. No pleural effusion or pneumothorax is seen bilaterally. CHEST WALL AND LOWER NECK: Symmetric mild gynecomastia is similar to prior. No axillary lymphadenopathy. ABDOMEN: LIVER: There is diffuse fatty infiltration of the liver with small regions of relative sparing in the periphery and adjacent to the gallbladder. Vague rounded 9 mm slightly hyperattenuating focus along the anterior margin of the left hepatic lobe lateral segment is unchanged. No new focal hepatic lesion is seen. BILE DUCTS: Nondilated. GALLBLADDER: The gallbladder is not distended and without calcified stones. PANCREAS: Within normal limits. SPLEEN: Within normal limits. ADRENAL GLANDS: Within normal limits. KIDNEYS AND URETERS: The kidneys enhance symmetrically without focal lesion. No hydroureteronephrosis bilaterally. BOWEL: No bowel obstruction. Appendix is normal. Scattered colonic diverticula are present without acute diverticulitis. No appreciable rectal wall thickening. No enlarged perirectal nodes are evident. VESSELS: There is no aneurysmal dilatation of the abdominal aorta. The IVC is within normal limits. PERITONEUM/RETROPERITONEUM/LYMPH NODES: No ascites or free air, no fluid collection. No retroperitoneal fluid collection or lymphadenopathy. ABDOMINAL WALL: Unremarkable. 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 Degenerative changes of the shoulders are partially visualized. Multilevel disc space narrowing and anterior endplate spurring is again seen in the thoracic and lumbar spine. Lower lumbar mild facet arthrosis is present. There is joint space narrowing and marginal spurring of both hips. No new focal bone lesion is seen. Overall stable exam. No new evidence to suggest intrathoracic metastatic disease. Several tiny subpleural nodular foci of the left base are unchanged and likely benign. Diffuse fatty infiltration of the liver with small irregular regions of relative sparing in the periphery and adjacent to the gallbladder. Left hepatic lobe lateral segment anterior subpleural 0.9 cm mildly hyperattenuating focus is stable and could represent a localized region of relative fatty sparing as well. No new focal hepatic lesion. Colonic diverticulosis without acute diverticulitis. MACRO: None. Signed by: Serg Sanchez 07/30/2023 5:57 PM Dictation workstation: [id number] Labs: Lab Results Component Value Date AST 30 07/28/2023 ALT 42 07/28/2023 ALKPHOS 58 07/28/2023 PROT 7.0 07/28/2023 ALBUMIN 4.5 07/28/2023 Physical Exam Vitals reviewed. 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 Constitutional: Appearance: Normal appearance. Cardiovascular: Rate and Rhythm: Normal rate and regular rhythm. Pulmonary: Effort: Pulmonary effort is normal. Breath sounds: Normal breath sounds. Abdominal: General: Abdomen is flat. There is no distension. Palpations: Abdomen is soft. There is no mass. Tenderness: There is no abdominal tenderness. Hernia: No hernia is present. Genitourinary: Rectum: Normal. Neurological: General: No focal deficit present. Mental Status: He is alert. Psychiatric: Behavior: Behavior normal. Flexible sigmoidoscopy Date/Time: 08/10/2023 2:31 PM Performed by: Alexander Gamboa MD Authorized by: Alexander Gamboa MD Consent: Consent obtained: Written Consent given by: Patient Procedure specific details: Digital rectal exam: normal Flexible sigmoidoscopy: normal rectal mucosa, no polyps or masses Last Recorded Vitals There were no vitals taken for this visit. Assessment/Plan History of malignant rectal polyp s/p polypectomy. No evidence of recurrent disease on today's proctoscopy or on recent imaging. RTC in 6 [address] for continued surveillance. Dr. Alexander Gamboa 08/09/2023 documented in this encounter [facility] Work Phone: 07-06-2023 Evaluation + Plan note Associated Problem(s): COVID-19 - Advised patient to quarantine for 5 days from symptom onset - Advised patient to wear a mask for 10 days - Paxlovid sent to pharmacy - Patient to report to ED if develops chest pain, SOB, or fevers unrelieved by tyelnol/advil [facility] Work Phone: 07-06-2023 Miscellaneous Notes Associated Problem(s): COVID-19 - Advised patient to quarantine for 5 days from symptom onset - Advised patient to wear a mask for 10 days - Paxlovid sent to pharmacy - Patient to report to ED if develops chest pain, SOB, or fevers unrelieved by tyelnol/advil documented in this encounter [facility] Work Phone: 07-06-2023 History of Present illness Narrative Subjective Chief Complaint: COVID positive, tested this morning; Sinusitis; Headache; Back Pain; and Cough. Sinusitis Associated symptoms include chills, congestion, coughing and headaches. Pertinent negatives include no shortness of breath, sinus pressure or sore throat. Headache Associated symptoms include back pain, coughing, a fever and rhinorrhea. Pertinent negatives include no abdominal pain, nausea, sinus pressure, sore throat or vomiting. Back Pain Associated symptoms include a fever and headaches. Pertinent negatives include no abdominal pain or chest pain. Cough Associated symptoms include chills, a fever, headaches, postnasal drip and rhinorrhea. Pertinent negatives include no chest pain, sore throat or shortness of breath. Kevin Odom is a 57 y.o. male who presents for COVID positive, tested this morning; Sinusitis; Headache; Back Pain; and Cough. Patient presents with COVID. HE reports his symptoms started 3 days ago with chills, nasal congestion, headache, Fever (Tmax 102 F), cough Patient denies nausea, vomiting, diarrhea, chest pain, heart palpations, or shortness of breath. OTC has been using tylenol Review of Systems Constitutional: Positive for chills, fatigue and fever. HENT: Positive for congestion, postnasal drip and rhinorrhea. Negative for sinus pressure, sinus pain and sore throat. Respiratory: Positive for cough. Negative for shortness of breath. Cardiovascular: Negative for chest pain. Gastrointestinal: Negative for abdominal pain, diarrhea, nausea and vomiting. Musculoskeletal: Positive for back pain. Neurological: Positive for headaches. Objective There were no vitals taken for this visit. BSA There is no height or weight on file to calculate BSA. Physical Exam Orders Only on 12/07/2022 Component Date Value Ref Range Status Glucose 12/07/2022 106 (H) 74 - 99 mg/dL Final Sodium 12/07/2022 140 136 - 145 mmol/L Final Potassium 12/07/2022 4.4 3.5 - 5.3 mmol/L Final Chloride 12/07/2022 103 98 - 107 mmol/L Final Bicarbonate 12/07/2022 31 21 - 32 mmol/L Final Anion Gap 12/07/2022 10 10 - 20 mmol/L Final Urea Nitrogen 12/07/2022 15 6 - 23 mg/dL Final Creatinine 12/07/2022 0.92 0.50 - 1.30 mg/dL Final GFR MALE 12/07/2022 >90 >90 mL/min/1.73m2 Final Comment: CALCULATIONS OF ESTIMATED GFR ARE PERFORMED USING THE 2020 CKD-EPI STUDY REFIT EQUATION WITHOUT THE RACE VARIABLE FOR THE IDMS-TRACEABLE CREATININE METHODS. https://jasn.asnjournals.org/conten t/early//ASN.0116729596 Calcium 12/07/2022 9.6 8.6 - 10.6 mg/dL Final Albumin 12/07/2022 4.6 3.4 - 5.0 g/dL Final Alkaline Phosphatase 12/07/2022 68 33 - 120 U/L Final Total Protein 12/07/2022 6.9 6.4 - 8.2 g/dL Final AST 12/07/2022 25 9 - 39 U/L Final Total Bilirubin 12/07/2022 0.8 0.0 - 1.2 mg/dL Final ALT (SGPT) 12/07/2022 25 10 - 52 U/L Final Comment: Patients treated with Sulfasalazine may generate falsely decreased results for ALT. Legacy Encounter on 12/03/2022 Component Date Value Ref Range Status Pathology Report 12/03/2022 Final Value:Name KEVIN ODMO Pathologist: SILVERIO MENDEZ MD Date of Procedure: 12/03/2022 Date Received: 12/03/2022 Date Reported 12/08/2022 Submitting Physician: ALEXANDER GAMBOA MD Location: [facility] Other External # FINAL DIAGNOSIS A. THE GASTROENTEROLOGY [id number] (10/16/2022) 1.COLON, SIGMOID COLON POLYP, POLYPECTOMY: --TUBULAR ADENOMA 2. RECTUM POLYP, POLYPECTOMY: -- INVASIVE MODERATELY DIFFERENTIATED ADENOCARCINOMA, SEE NOTE Note: Block has been requested from outside hospital to perform mismatch repair proteins . Mismatch repair protein will be performed to assess for microsatellite instability and an addendum report will be issued. application packaging consultant: Dr.Wendy Baig (part 2) Electronically Signed Out By SILVERIO MENDEZ MD/SXS By the signature on this report, the individual or group listed as making the Final Interpretation/Diagnosis certifies that they have reviewed this case. Addendum/Procedures: Special Oncology Report Date Ordered: 12/14/2022 Status: Signed Out Date Complete: 12/14/2022 Date Reported: 12/14/2022 Addendum Diagnosis MISMATCH REPAIR PROTEIN EXPRESSION: Tumor type/ specimen source: Rectum polyp Paraffin block number: [id number], A1 Protein: Re sult: MLH-1 Intact Nuclear Expression PMS-2 Intact Nuclear Expression MSH-2 Intact Nuclear Expression MSH-6 Intact Nuclear Expression INTERPRETATION: Colon neoplasm with normal mismatch repair protein expression. The immunohistochemistry study of DNA mismatch repair protein expression reveals the normal presence of hMLH-1, hMSH2, hMSH6 and hPMS2 in the tumor (normal internal controls stain appropriately). The findings do not exclude underlying Villanueva Syndrome (HNPCC) because some mutations may result in intact protein expression. In addition, rare alterations can exist in other mismatch proteins, which have not been tested. In addition, some hereditary colorectal cancers are caused by alteration in other pathways unrelated to DNA Mismatch Repair. application packaging consultant: Dr. Robby Albert NOTE: Immunohistochemical staining (IHC) is used to determine the presence or absence of protein expression MLH1, MSH2, MSH6 and PMS2. Lymphocytes and normal epithelial cells exhibit strong nuclear staining and serve as positive internal controls for staining of these proteins. Infiltrating carcinoma cells exhibiting nuclear staining show intact nuclear expression. The stated protein mouse and rabbit monoclonal antibodies (MLH1-clone [id number]([employer] [facility]), MSH2- clone [id number]([employer]), MSH6-clone [id number] ([employer] [facility] [facility]), and PMS2- clone lonrenetta [id number]([employer])) staining are performed on formalin fixed paraffin embedded specimens. The method employed was a standard peroxidase labeled-polymer detection system from [employer] [facility] ([employer]raView [place] DAB). Each assay was performed using appropriate positive and negative controls, as well as evaluation of internal controls. LDT: One or more of the reagents used to perform assays on this specimen MAY have contained components considered to be Laboratory Developed Tests (LDT). LDT's have not been cleared or approve d by the U.S.Food and Drug Administration. These assays/tests were developed and their performance characteristics determined by the Department of Pathology Immunohistochemistry Lab at [facility]. The FDA does not require this test to go through premarket FDA review. This test is used for clinical purposes. It should not be regarded as investigational or for research. This laboratory is certified under the Clinical Laboratory Improvement Amendments (CLIA) as qualified to perform high complexity clinical laboratory testing. The assays/tests were performed with appropriate positive and negative controls, which stained appropriately. CAUTIONS: Test results should be interpreted in context of clinical findings, family history, and other laboratory data. If results obtained do not match other clinical or laboratory findings, please contact the laboratory for possible interpretation. Misinterpretation of results may occur if the inf ormation provided is inaccurate or incomplete. REFERENCE: 1. Benigno Holloway. Immunohistochemistry versus microsatellite microsatellite instability testing for screening colorectal CANCER patients at risk for Hereditary Nonpolyposis Colorectal Cancer Syndrome. Part1: The utility of immunohistochemistry. J Mol Diag 10(4):293-300, 2007. 2. ROBERTA Guerin, Rich MEDINA. Colorectal cancer due to deficiency in DNA mismatch repair function: a review. Adv. Leia Pathol 16: 405-17, 2008. Electronically Signed Out By SILVERIO MENDEZ MD/CocoXS By the signature on this report, the individual or group listed as making the Final Interpretation/Diagnosis certifies that they have reviewed this case. Clinical History: sigmoid colon Specimens Submitted As: A: [facility] [id number] (10/16/2022) Slide/Block Description Received from [facility], Dept of Pathology, [address], [place] [address], are 6 slides labeled [id number] Keep S lides: N Slides Returned: N Personal Consult: N The assays/tests were performed with appropriate positive and negative controls which stained appropriately. No current outpatient medications on file prior to visit. No current facility-administered medications on file prior to visit. No images are attached to the encounter. Assessment/Plan Problem List Items Addressed This Visit ICD-10-CM COVID-19 - Primary U07.1 - Advised patient to quarantine for 5 days from symptom onset - Advised patient to wear a mask for 10 days - Paxlovid sent to pharmacy - Patient to report to ED if develops chest pain, SOB, or fevers unrelieved by tyelnol/advil Relevant Medications nirmatrelvir-ritonavir (Paxlovid) 300 mg (150 mg x 2)-100 mg tablet therapy pack documented in this encounter [facility] Work Phone: 12-17-2022 History of Present illness Narrative Kevin Odom is a 57M with Malignant rectal polyp. Path shows mod differentiated, no LVI, low budding. Piecemeal resection. Pathology reviewed by pathology department. MDT review on 12/17/22 recommendations include close follow-up with flexible sigmoidoscopy and MRI in 3 months.12/01/22 - CT C/A/P IMPRESSION:1. No evidence of thoracic metastatic disease.2. Hyperdense possible surgical material or debris in the rectum. No discrete rectal wall thickening or perirectalnodularity/lymphadenopath y.3. Subtle 0.9 cm indeterminate lesion in the left lobe of diffusely fatty infiltrated liver. Metastasis not excluded. Follow-up or further evaluation with liver MRI suggested.4. Distal colon diverticulosis.5. Small amount of fluid in the right inguinal canal.6. Other findings as described above.12/15/22 - MRI Rectum [id number] Work Phone: 11-01-2022 History of Present illness Narrative Kevin Odom is a with new rectal cancer.Underwent diagnostic colonoscopy one month ago for bleeding. Found to have 12 mm rectal polyp removed by snare. Path revealed mod diff adenocarcinoma arising in tubular adenoma. No LVI. Low tumor budding.No imaging yet.Otherwise healthy. [id number] Work Phone: Evaluation note Diagnosis Malignant neoplasm of rectum (HCC)- Primary Malignant neoplasm of [facility]um [facility]-19- Primary documented in this encounter [facility] Work Phone: Evaluation note* Diagnosis History of rectal polyps- Primary documented in this encounter [facility] Work Phone: Evaluation note* Diagnosis COVID-19- Primary Rectal cancer (Multi) Malignant neoplasm of rectum documented in this encounter [facility] Work Phone: Evaluation note* Diagnosis COVID-19- Primary Rectal cancer (Multi)- Primary Malignant neoplasm of rectum documented in this encounter [facility] Work Phone: Evaluation note* Diagnosis COVID-19- Primary Influenza A- Primary Influenza with other respiratory manifestations Body aches Generalized pain Chills Chills (without fever) Fatigue, unspecified type documented in this encounter [facility] Work Phone: Evaluation note* Diagnosis COVID-19- Primary Routine adult health maintenance- Primary Leg swelling Swelling of limb Phlebitis Phlebitis and thrombophlebitis of unspecified site Atrial fibrillation, unspecified type (Multi) Hyperlipidemia, unspecified hyperlipidemia type Abnormal EKG Nonspecific abnormal electrocardiogram (ECG) (EKG) Rectal cancer (Multi) Malignant neoplasm of rectum documented in this encounter [facility] Work Phone: Evaluation note* Diagnosis Routine adult health maintenance- Primary Leg swelling Swelling of limb Phlebitis Phlebitis and thrombophlebitis of unspecified site Atrial fibrillation, unspecified type (Multi) Hyperlipidemia, unspecified hyperlipidemia type Abnormal EKG Nonspecific abnormal electrocardiogram (ECG) (EKG) Rectal cancer (Multi) Malignant neoplasm of rectum Paroxysmal atrial fibrillation (Multi)- Primary Atrial fibrillation Mixed hyperlipidemia Aneurysm of ascending aorta without rupture Coronary artery disease involving [place] coronary artery of [place] heart without angina pectoris Snoring Other dyspnea and respiratory abnormality documented in this encounter [facility] Work Phone: Evaluation note* Diagnosis Routine adult health maintenance- Primary Leg swelling Swelling of limb Phlebitis Phlebitis and thrombophlebitis of unspecified site Atrial fibrillation, unspecified type (Multi) Hyperlipidemia, unspecified hyperlipidemia type Abnormal EKG Nonspecific abnormal electrocardiogram (ECG) (EKG) Rectal cancer (Multi) Malignant neoplasm of rectum Localized edema Edema A-fib (Multi)- Primary Atrial fibrillation Paroxysmal atrial fibrillation (Multi) Atrial fibrillation Mixed hyperlipidemia A-fib (Multi) Atrial fibrillation documented in this encounter [facility] Work Phone: Evaluation note* Diagnosis Routine adult health maintenance- Primary Leg swelling Swelling of limb Phlebitis Phlebitis and thrombophlebitis of unspecified site Atrial fibrillation, unspecified type (Multi) Hyperlipidemia, unspecified hyperlipidemia type Abnormal EKG Nonspecific abnormal electrocardiogram (ECG) (EKG) Rectal cancer (Multi) Malignant neoplasm of rectum Localized edema Edema A-fib (Multi)- Primary Atrial fibrillation Leg swelling Swelling of limb Phlebitis Phlebitis and thrombophlebitis of unspecified site Localized edema Edema A-fib (Multi) Atrial fibrillation documented in this encounter [facility] Work Phone: Evaluation note* Diagnosis Routine adult health maintenance- Primary Leg swelling Swelling of limb Phlebitis Phlebitis and thrombophlebitis of unspecified site Atrial fibrillation, unspecified type (Multi) Hyperlipidemia, unspecified hyperlipidemia type Abnormal EKG Nonspecific abnormal electrocardiogram (ECG) (EKG) Rectal cancer (Multi) Malignant neoplasm of rectum Localized edema Edema A-fib (Multi)- Primary Atrial fibrillation Paroxysmal atrial fibrillation (Multi) Atrial fibrillation documented in this encounter [facility] Work Phone: Evaluation noteNo assessment information available [facility] Work Phone: Evaluation note* Diagnosis Routine adult health maintenance- Primary Leg swelling Swelling of limb Phlebitis Phlebitis and thrombophlebitis of unspecified site Atrial fibrillation, unspecified type (Multi) Hyperlipidemia, unspecified hyperlipidemia type Abnormal EKG Nonspecific abnormal electrocardiogram (ECG) (EKG) Rectal cancer (Multi) Malignant neoplasm of rectum Localized edema Edema Aneurysm of ascending aorta without rupture- Primary Paroxysmal atrial fibrillation (Multi) Atrial fibrillation Coronary artery disease involving [place] coronary artery of [place] heart without angina pectoris Mixed hyperlipidemia Leg swelling Swelling of limb documented in this encounter [facility] Work Phone: Evaluation note* Diagnosis Routine adult health maintenance- Primary Leg swelling Swelling of limb Phlebitis Phlebitis and thrombophlebitis of unspecified site Atrial fibrillation, unspecified type (Multi) Hyperlipidemia, unspecified hyperlipidemia type Abnormal EKG Nonspecific abnormal electrocardiogram (ECG) (EKG) Rectal cancer (Multi) Malignant neoplasm of rectum Localized edema Edema Primary cancer of rectum (Multi) documented in this encounter [facility] Work Phone: Instructions* Name Dates Details Instructions not documented [facility] Work Phone: Instructions* Name Dates Details Instructions not documented [facility] Work Phone: Instructions* Name Dates Details Instructions not documented -[facility] Work Phone: Instructions* Patient Instructions* BLACK Rebollar - 07/06/2023 4:00 PM EST - Advised patient to quarantine for 5 days from symptom onset - Advised patient to wear a mask for 10 days - Paxlovid sent to pharmacy - Patient to report to ED if develops chest pain, SOB, or fevers unrelieved by tyelnol/advil [facility]* Patient Instructions* Maynor Malone MD - 11/16/2024 4:00 PM EDT Atrial fibrillation. Diagnosed today at his primary care doctor's office. Started on Eliquis. Heartrates are controlled. The plan will be to proceed with a cardioversion in 4 weeks. An echo will be performed today 2. CAD- Elevated CAC 20 units. This was based on elevated calcium score in 2019. Rosuvastatin started today. No symptoms of angina. 3. TAA 3.9. This will be reassessed on his echo 4. Lipids- On rosuva today. Target LDL less than 70. 5. Snoring- Eval for DEANA as potential cause of afib 2D echo. Cardioversion 4 weeks. See me back 8 to 10 weeks. [facility]: Reason for referral (narrative)No reason for referral information [facility]WB[facility]vue [facility] Work Phone: Reason for visit Narrative* Imaging (Routine) - Authorized Specialty Diagnoses / Procedures Referred By Shania rico Referred To Contact Radiology Diagnoses Rectal cancer (Multi) Procedures CT chest abdomen pelvis w IV contrast Kelly Obrien, [employer] [address] [address] Phone: tel: fax: Referral ID Status Reason Start Date Expiration Date Visits Requested Visits Authorized [id number] Authorized Perform Procedure 02/01/2024 01/31/2025 1 1 [facility] Work Phone: reason for visit Narrative* CV Imaging (Routine) - Authorized Specialty Diagnoses / Procedures Referred By Contac t Referred To Contact Cardiology Diagnoses Paroxysmal atrial fibrillation (Multi) Mixed hyperlipidemia Procedures Transthoracic Echo (TTE) Complete NC ECHO TTHRC R-T 2D W/WOM-MODE COMPL SPEC&COLR D Maynor Malone MD [address], [place] [address] Phone: tel: fax: Referral ID Status Reason Start Date Expiration Date Visits Requested Visits Authorized [id number] Authorized Perform Procedure 11/16/2024 11/16/2025 1 1 [facility] Work Phone: reason for visit Narrative* Imaging (Routine) - Authorized Specialty Diagnoses / Procedures Referred By Contac t Referred To Contact Cardiology Diagnoses Leg swelling Phlebitis Localized edema Procedures Vascular US lower extremity venous insufficiency right Vascular US lower extremity venous duplex right Melquiades Jolley DO [address] [facility], [address] [address] Phone: tel: fax: Referral ID Status Reason Start Date Expiration Date Visits Requested Visits Authorized [id number] Authorized Perform Procedure 11/16/2024 11/16/2025 1 1 [facility] Work Phone: reason for visit Narrative* Auth/Cert Specialty Diagnoses / Procedures Referred By Contac t Referred To Contact Diagnoses A-fib (Multi) Procedures NC CARDIOVERSION ELECTIVE ARRHYTHMIA EXTERNAL Cardioversion/Defibrillation Maynor Malone MD [address] [facility], [address] [address] Phone: tel: fax: [facility] [address] [place] [address] Phone: tel: fax: Referral ID Status Reason Start Date Expiration Date Visits Re quested Visits Authorized [id number] 1 1 [facility] Work Phone: Family History No Family History Records Found Father Name Dates Details Family history of hearing pr oblem(V19.2, Z82.2) Status:Active Family history of skin cance r(V16.8, Z80.8) Status:Active Father Name Dates Details Family history of hearing pr oblem(V19.2, Z82.2) Status:Active Family history of skin cance r(V16.8, Z80.8) Status:Active Father Name Dates Details Family history of hearing pr oblem(V19.2, Z82.2) Status:Active Family history of skin cance r(V16.8, Z80.8) Status:Active Father Name Dates Details Family history of hearing pr oblem(V19.2, Z82.2) Status:Active Family history of skin cance r(V16.8, Z80.8) Status:Active Father Name Dates Details Family history of hearing pr oblem(V19.2, Z82.2) Status:Active Family history of skin cance r(V16.8, Z80.8) Status:Active Father Name Dates Details Family history of hearing pr oblem(V19.2, Z82.2) Status:Active Family history of skin cance r(V16.8, Z80.8) Status:Active Father Name Dates Details Family history of hearing pr oblem(V19.2, Z82.2) Status:Active Family history of skin cance r(V16.8, Z80.8) Status:Active Father Name Dates Details Family history of hearing pr oblem(V19.2, Z82.2) Status:Active Family history of skin cance r(V16.8, Z80.8) Status:Active Father Name Dates Details Family history of hearing pr oblem(V19.2, Z82.2) Status:Active Family history of skin cance r(V16.8, Z80.8) Status:Active Father Name Dates Details Family history of hearing pr oblem(V19.2, Z82.2) Status:Active Family history of skin cance r(V16.8, Z80.8) Status:Active Father Name Dates Details Family history of hearing pr oblem(V19.2, Z82.2) Status:Active Family history of skin cance r(V16.8, Z80.8) Status:Active Father Name Dates Details Family history of hearing pr oblem(V19.2, Z82.2) Status:Active Family history of skin cance r(V16.8, Z80.8) Status:Active Father Name Dates Details Family history of hearing pr oblem(V19.2, Z82.2) Status:Active Family history of skin cance r(V16.8, Z80.8) Status:Active Father Name Dates Details Family history of hearing pr oblem(V19.2, Z82.2) Status:Active Family history of skin cance r(V16.8, Z80.8) Status:Active Father Name Dates Details Family history of hearing pr oblem(V19.2, Z82.2) Status:Active Family history of skin cance r(V16.8, Z80.8) Status:Active Father Name Dates Details Family history of hearing pr oblem(V19.2, Z82.2) Status:Active Family history of skin cance r(V16.8, Z80.8) Status:Active Unknown Family Member Name Dates Details Family history of hearing pr oblem: Father(V19.2, Z82.2) Status:Active Family history of skin cance r: Father(V16.8, Z80.8) Status:Active Unknown Family Member Name Dates Details Family history of hearing pr oblem: Father(V19.2, Z82.2) Status:Active Family history of skin cance r: Father(V16.8, Z80.8) Status:Active Unknown Family Member Name Dates Details Family history of hearing pr oblem: Father(V19.2, Z82.2) Status:Active Family history of skin cance r: Father(V16.8, Z80.8) Status:Active Summary Purpose Advance Directives No Advanced Directives Records FoundThere may be information available, but it has not been provided by the sender.No Advanced Directives Records FoundNo Advanced Directives Records FoundNo Advanced Directives Records FoundNo Advanced Directives Records FoundNo Advanced Directives Records FoundNo Advanced Directives Records FoundNo Advanced Directives Records FoundNo Advanced Directives Records FoundNo AdvancedDirectives Records FoundNo Advanced Directives Records Found Chief Complaint Chief Complaint Description Start Date right foot pain Preliminary chief co mplaint data, not yet signed by the author as of Instructions Instruction Description Start Date CompletedPatient advised to follow-up with Primary Care Physician for BMI management. Assessments There may be information available, but it has not been provided by the sender. Review of System There may be information available, but it has not been provided by the sender. History of Present Illness There may be information available, but it has not been provided by the sender. Reason for Referral Specialty Diagnoses / Procedures Referred By Contac t Referred To Contact Radiology Diagnoses Malignant neoplasm of rectum (HCC) Procedures MR pelvis w and wo contrast Kendall Person MD [address] [place] [address] Referral ID Status Reason Start Date Expiration Date V isits Requested Visits Authorized [id number] Authorized 11/24/2022 05/23/2023 1 1 Specialty Diagnoses / Procedures Referred By Contac t Referred To Contact Radiology Diagnoses Malignant neoplasm of rectum (HCC) Procedures MR abdomen w and wo contrast Kendall Person MD [address] [place] [address] Referral ID Status Reason Start Date Expiration Date V isits Requested Visits Authorized [id number] Pending Review 11/24/2022 05/23/2023 1 1 Additional Source Comments (unrecognized sect ion and content) No Status Records FoundNo Status Records FoundNo Status Records FoundNo Status Records FoundNo Status Records FoundNo Status Records FoundNo Status Records FoundNo Status Records FoundNo Status Records FoundNo Status Records FoundNo Status Records Found INFORMATION SOURCE (unrecogn ized section and content) DATE CREATED AUTHOR 08/18/2019 [facility] DATE CREATED AUTHOR AUTHOR'S ORGANIZ ATION 11/10/2022 [facility] DATE CREATED AUTHOR AUTHOR'S ORGANIZ ATION 01/04/2023 [facility] DATE CREATED AUTHOR AUTHOR'S ORGANIZ ATION 03/24/2023 [facility] DATE CREATED AUTHOR AUTHOR'S ORGANIZ ATION 09/04/2024 [facility] DATE CREATED AUTHOR AUTHOR'S ORGANIZ ATION 11/17/2024 [facility] DATE CREATED AUTHOR AUTHOR'S ORGANIZ ATION 01/29/2025 [facility] DATE CREATED AUTHOR AUTHOR'S ORGANIZ ATION 03/02/2025 [facility] DATE CREATED AUTHOR AUTHOR'S ORGANIZ ATION 03/03/2025 [facility] DATE CREATED AUTHOR AUTHOR'S ORGANIZ ATION 03/03/2025 [facility] DATE CREATED AUTHOR AUTHOR'S ORGANIZ ATION 03/25/2025 [facility] Reason for Visit (unrecogniz ed section and content) Reason For Visit Description New - 1st visit with practice Preliminary reason f or visit data, not yet signed by the author as of right foot pain Reason Comments COVID positive, tested this morning Sinusitis Headache Back Pain Cough Reason Comments Cough Chest congestion, alma dy aches, cough X yesterday Reason Comments Annual Exam Specialty Diagnoses / Procedures Referred By Contac t Referred To Contact Diagnoses Atrial fibrillation, unspecified type (Multi) Procedures ECG 12 Lead Melquiades Jolley DO [address] [facility] [address] [facility], [place] [address] Phone: tel: fax: Referral ID Status Reason Start Date Expiration Date V isits Requested Visits Authorized [id number] Authorized 11/16/2024 11/16/2025 1 1 Reason Comments Hospital Follow-up Source Comments (unrecognize d section and content) In the event this informatio n is protected by the Federal Confidentiality of Alcohol and Drug Abuse Patient Records regulations: The Federal rules restrict any use of the information to criminally investigate or prosecute any alcohol or drug abuse patient.[facility] Care Teams (unrecognized sec tion and content) Transit Planner Relationship Specialty Start Date End Date Melquiades Jolley DO [address] [facility], [address] [place] [address] PCP - General 01/23/19 Transit Planner Relationship Specialty Start Date End Date Melquiades Jolley DO [address] [facility], [address] [place] [address] PCP - General 01/23/19 Transit Planner Relationship Specialty Start Date End Date Melquiades Jolley DO [address] [facility], [address] [place] [address] PCP - General 01/23/19 Transit Planner Relationship Specialty Start Date End Date Melquiades Jolley DO [address] [facility], [address] [place] [address] PCP - General 01/23/19 Transit Planner Relationship Specialty Start Date End Date Melquiades Jolley DO [address] [facility], [address] [place] [address] PCP - General 01/23/19 Transit Planner Relationship Specialty Start Date End Date Melquiades Jolley DO [address] [facility] [address] [place] [address] PCP - General 01/23/19 Transit Planner Relationship Specialty Start Date End Date Melquiades Jolley DO [address] [facility], [address] [place] [address] PCP - General 01/23/19 Transit Planner Relationship Specialty Start Date End Date Melquiades Jolley DO [address] [facility], [address] [place] [address] PCP - General 01/23/19 Maynor Malone MD [address] [place] [address] Consulting Physician Cardiology 12/20/24 Transit Planner Relationship Specialty Start Date End Date Melquiades Jolley DO [address] [facility], [address] [place] [address] PCP - General 01/23/19 Maynor Malone MD [address] [place] [address] Consulting Physician Cardiology 12/20/24 Team Status: Active Member Role Status Dates Dr. Melquiades Jolley MD Primary Care Provider Active Team Status: Inactive Member Role Status Dates Dr. Melquiades Jolley MD Primary Care Provider Active Start: January 03, 2025 End: January 03, 2025 Dr. Antione Wilson MD Attending Provider Active Start: January 03, 2025 End: January 03, 2025 Dr. Antione Wilson MD Referring Provider Active Start: January 03, 2025 End: January 03, 2025 Transit Planner Relationship Specialty Start Date End Date Melquiades Jolley DO [address] [facility], [address] [place] [address] PCP - General 01/23/19 Maynor Malone MD [address] [facility] [address] [place] [address] Consulting Physician Cardiology 12/20/24 Goals (unrecognized section and content) Goals may be documented in a n alternate section FOR RECORDS PERTAINING TO PATIENTS WHO ARE OR HAVE BEEN ENROLLED IN A CHEMICAL DEPENDENCY/SUBSTANCEABUSE PROGRAM, SOME INFORMATION MAY BE OMITTED. This clinical summary was aggregated from multiple sources. Caution should be exercised in using it in the provision of clinical care. This summary normalizes information from multiple sources, and as a consequence, information in this document may materially change the coding, format and clinical context of patient data. In addition, data may be omitted in some cases. CLINICAL DECISIONS SHOULD BE BASED ON THE PRIMARY CLINICAL RECORDS. [employer] provides no warranty or guarantee of the accuracy or completeness of information in this document.
[2025-03-30 09:19] LABS: Hematocrit 45.0 % (40-54); Hemoglobin 15.8 g/dL (13.0-16.5); Mean Corp Hgb Conc 35.1 g/dL (32-36); Mean Corpuscular Volume 88.9 fL (80-94); Mean Platelet Vol. 9.6 fl (6.2-12.0); Platelet Count 215 K/mm3 (150-450); RBC Distribution Width CV 12.4 % (11.6-14.6); RBC Distribution Width SD 40.3 fl (35.1-43.9); Red Blood Count 5.06 M/mm3 (4.6-6.2); White Blood Count 5.2 K/mm3 (4.4-11.0)
[2025-03-30 09:37] LABS: Anion Gap 9 (5-15); BUN 14 mg/dL (4-19); BUN/Creat Ratio 15.2 RATIO (10-20); Calcium,Total 9.5 mg/dL (7.6-11.0); Carbon Dioxide 28.0 mmol/L (21.0-32.0); Chloride 101 mmol/L (98-108); Glucose 95 mg/dL (70-99); Potassium 4.3 mmol/L (3.3-5.1)
== END | disposition home or self-care (01) ==
LOC: PSN 07:49
PROVIDERS: PCP Family Medicine Geriatric Medicine; Referring Provider Otolaryngology; Visit Provider Otolaryngology
DX: Z01.810 Encounter for preprocedural cardiovascular examination (principal); Z01.812 Encounter for preprocedural laboratory examination
CPT/HCPCS: 36415; 80048; 85027; 93005